=== PATIENT | male | born 1950 | race Caucasian/White ===

== ENCOUNTER → 2017-11-08 17:58 | Outpatient (CLI) | payer BC, MEDICARE, SELFPAY | PROVIDERS: PCP Family Medicine; Visit Provider Surgery | DX: K42.9 Umbilical hernia without obstruction or gangrene (principal); Z01.818 Encounter for other preprocedural examination | CPT/HCPCS: 93005 ==

== ENCOUNTER 2017-11-11 06:01 | Day surgery (SDC) | payer BC, MEDICARE, SELFPAY ==
[2017-11-10 10:25] VITALS: BMI 32.5
[2017-11-11] VITALS (10 sets, daily range): BP systolic 122–142; BP diastolic 65–79; PULSE 70–85; RESP 10–20; TEMP 36.3–43; O2SAT 92–98
--- NOTE | 2017-11-11 07:19 | HMH.ANESCL ---
[facility] Anesthesia Checklist - Patient Identification Patient Identification: Arm Band - Structural Data Admitted From: Home Planned Operative Procedure/s: laparoscopic umbilical hernia repair Consent for Planned Operative Procedure(s) Verified: Yes Verified Documents: Surgical Consent, History and Physical - NPO Status Verified Time NPO: 00:00 - Additional verifications Anesthesia Reactions: No - Airway Assessment C-Spine Mobility Assessed: Yes (mp1) TMJ Mobility Assessed: Yes Dentition: Good Dentition - Neurological Assessment Level of Consciousness: Awake, Alert - Anesthesia Plan Anesthesia Risk discussed: Yes Anesthesia Plan: Verified ASA Class: II Anesthesia Type: General [facility] Anesthesia HX I have reviewed the patient's past medical history: Yes Medical History: Reports:: Cancer, Hypertension Denies:: Internal Pacemaker, Seizures Comment: hx afib- s/p ablation Laterality Cases: Left: Arthroscopy Knee Other Surgeries: Yes: Cancer Surgery, Colonoscopy, EGD, Other (gallbladder). No: Pacemaker *Family Hx:: Heart Attack, Cancer
--- NOTE | 2017-11-11 08:25 | HMH.OPNOTE ---
Date of procedure: 11/11/17 Pre-op Diagnosis:: Umbilical hernia Post-op diagnosis:: other (Incarcerated umbilical hernia) Procedure performed:: Laparoscopic-assisted open repair of incarcerated umbilical hernia (no mesh) Surgeon:: Liban Dominguez MD [employer] Sewer(s):: Keiko Dill PHYSICIAN OFFICE SECRETARY:: Other Anesthesia: GETA Estimated blood loss (mL): 10 Operative findings:: Tiny fingertip defect with large volume of incarcerated preperitoneal fat Operative note:: Informed consent was obtained, the patient was taken to the operating room and placed in the supine position. General anesthesia was induced and his abdomen was prepped and draped in a sterile fashion. After infiltration with local anesthetic a Veress needle was placed in the left upper quadrant. The abdomen was insufflated. A 5 mm optical trocar was placed in the left mid flank. An additional 5 mm trocar was placed at the site of the Veress needle. Evaluation revealed no visible umbilical defect. Palpation did reveal a tiny fingertip defect and a large volume of preperitoneal fat was removed laparoscopically. This was done manually utilizing a [place] grasper. With all of the preperitoneal fat removed incision was made overlying the defect after infiltration with local anesthetic. The patient has a history of severe inflammatory response to Jonnie-Jewell drain status post cholecystectomy and the decision was made to forego mesh placement (particularly given the small size of defect). 0 Ethibond was used to primarily close the defect. The abdomen was once again insufflated and no sign of injury or active bleeding was noted. Both trocars were removed as the pneumoperitoneum was released. All wounds were irrigated and skin was closed with 4-0 Monocryl in a subcuticular fashion. Steri-Strips were applied. The patient's anesthetic agents were reversed and he was extubated prior to transfer to recovery. Pathology: none sent Condition: stable Disposition: PACU Complications:: No immediate
--- NOTE | 2017-11-11 09:10 | P.PN_ITS ---
[facility] Anesthesia Record Part I Intake, IV Amount: 1,200 Estimated blood loss (mL): 10 Urine output (mL): 100 Blood Products used (#): none Blood Pressure: 142/76 SaO2: 92 Pulse Rate: 82 Respiratory Rate: 10 Temperature: 97.3 F Patient is:: Awake, Mask O2, Stable Stable to PACU at:: 08:42
--- NOTE | 2017-11-11 09:10 | HMH.ANESII ---
[facility] Anesthesia Record Part II Discharge Time: 09:12 Destination: Surgical Day Care (OP Surgery) PACU nurse assessment reviewed?: Yes Patient Condition:: Good Anesthesia Complications:: None
[2017-11-11 14:34] LABS: Microscopic,Cath URINE MICROSCOPIC (MICROSCOPIC)
[2017-11-11 15:13] LABS: Appearance,Urine/Cath CLEAR (Clear); Bilirubin,Cath Negative (Negative); Blood, Urine/Cath Negative (Negative); Color,Urine/Cath YELLOW (Yellow); Glucose,Urine/Cath (UA) Negative (Negative); Ketones,Urine/Cath Negative (Negative); Leukocyte Esterase,Cath Negative (Negative); Nitrate,Cath Negative (Negative); PH,Urine/Cath 6.5 (5.0-8.5); Protein,Urine/Cath Negative (Negative); Urobilinogen,Cath 0.2 EU/dl (0.2)
[2017-11-11 16:05] LABS: Bacteria,Urine/Cath TRACE /lpf; RBC,Urine/Cath Occasional # /hpf (0-3)
== END 2017-11-11 09:55 ==
PROVIDERS: Family Provider Family Medicine; PCP Family Medicine; Visit Provider Surgery
PROC: 0WQF4ZZ Repair Abdominal Wall, Percutaneous Endoscopic Approach (ICD-10-PCS; CPT 49587; principal; 2017-11-11 07:30)
DX: K42.0 Umbilical hernia with obstruction, without gangrene (principal)
CPT/HCPCS: 49587; 81001; 96374; J0131; J2405

== ENCOUNTER → 2018-07-24 15:06 | Outpatient (POV) | payer BC, MEDICARE, SELFPAY | PROVIDERS: Family Provider Family Medicine; PCP Family Medicine; Visit Provider Nurse Practitioner Acute Care | DX: Z00.00 Encounter for general adult medical examination without abnormal findings (principal) ==

== ENCOUNTER → 2018-11-14 16:24 | Outpatient (CLI) | payer BC, MEDICARE, SELFPAY ==
[2018-11-14 16:31] LABS: Adenovirus F 40/41, stool Not Detected (NotDetected); Astrovirus Not Detected (NotDetected); Campylobacter Not Detected (NotDetected); Clostridium Difficile A/B, PCR Not Detected (NotDetected); Cryptosporidium Not Detected (NotDetected); Cyclospora Cayetanesis Not Detected (NotDetected); Entamoeba histolytica Not Detected (NotDetected); Enteroaggregative E coli Not Detected (NotDetected); Enteropathogenic E coli Not Detected (NotDetected); Enterotoxigenic E coli Not Detected (NotDetected); Giardia lamblia Not Detected (NotDetected); Norovirus Not Detected (NotDetected); Plesimonas Shigalloides, PCR Not Detected (NotDetected); Rotavirus A Not Detected (NotDetected); Salmonella, PCR Not Detected (NotDetected); Sapovirus Not Detected (NotDetected); Shiga-like toxin E coli Not Detected (NotDetected); Shigella Enterovasive E coli Not Detected (NotDetected); Vibrio Cholerae Not Detected (NotDetected); Vibrio, PCR Not Detected (NotDetected); Yersinia Entercolitica, PCR Not Detected (NotDetected)
== END ==
PROVIDERS: Visit Provider Nurse Practitioner
DX: R19.7 Diarrhea, unspecified (principal)
CPT/HCPCS: 87507

== ENCOUNTER → 2018-11-24 13:33 | Outpatient (CLI) | payer BC, MEDICARE, SELFPAY ==
[2018-11-24 14:04] LABS: Blood Urea Nitrogen 18 mg/dL (7-18); Creatinine,Serum 1.18 mg/dL (0.70-1.30); Estimated Glomerular Filt Rate 61 ml/min (>60); GFR (African American) 74 ML/MIN (>60)
--- NOTE | 2018-11-24 15:53 | CT_ITS ---
CT abdomen pelvis wo/w con CLINICAL INDICATION: Rectal pain and irritation, previous hemorrhoidectomy ITS.REASON: VOMITING,HEMORRHOIDECTOMY ORDERING PHYSICIAN: Michelle Villanueva MD PATIENT AGE: 68 years COMPARISON: 07/12/2017 TECHNIQUE: Axial images obtained with sagittal and coronal reformats. All CT scans at the facility use one or more dose reduction, viz: automated exposure control, ma/kV adjustment per patient size (including targeted exams where dose is matched to indication, i.e. head), or iterative reconstruction technique. PROCEDURE: Oral Contrast: Gastroview IV Contrast: 75 mL's Optiray 350. FINDINGS: Lower thorax: There are coronary artery calcifications and there is a moderate-sized hiatal hernia. The liver, spleen, adrenal glands, pancreas, and kidneys have an unremarkable appearance. No renal or ureteral calculi. There is mild amount of retained colonic feces. There are postcholecystectomy changes. No evidence of appendicitis. There is diverticulosis of the colon. No evidence of diverticulitis. There is a moderate amount of retained colonic feces with rectal fecal impaction . There is a loculated fluid collection in the presacral region slightly extending inferiorly and toward the right posterior to the rectum. This contains fluid and gas as well as a perceptible wall. This measures 7.2 cm cephalad caudad, 5.7 cm transverse, and 3 cm AP and is consistent with a perirectal abscess in the presacral region. There is moderate thickening of the presacral fat as well. There is a small amount of gas in the right perirectal region near the anal verge which appears separate from the main collection. No distant free air is evident. No evidence of diverticulitis. No acute bony anomalies. IMPRESSION: 1. Presacral/perirectal abscess extends inferiorly to the right of midline. A separate collection is noted in the right perirectal region near the anal Burridge. This area measures only approximately 1 x 0.6 cm. This could conceivably communicate with the larger collection well. 2. Rectal fecal impaction. 3. Diverticulosis 4. Moderate-sized hiatal hernia
== END ==
PROVIDERS: Family Medicine; PCP Family Medicine; Visit Provider Family Medicine
DX: Z01.818 Encounter for other preprocedural examination (principal); Z87.19 Personal history of other diseases of the digestive system
CPT/HCPCS: 36415; 74178; 82565; 84520; Q9967

== ENCOUNTER → 2018-12-04 17:13 | Outpatient (CLI) | payer BC, MEDICARE, SELFPAY ==
[2018-12-04 17:26] LABS: Basophils # 0.1 K/mm3 (0-0.2); Basophils % 0.7 % (0.1-2.0); Eosinophils # 0.1 K/mm3 (0.0-0.4); Eosinophils % 1.6 % (0.1-12.0); Hematocrit 38.6 % (42.0-52.0); Hemoglobin 12.7 g/dL (14.1-18.0); Lymphocytes # 2.4 K/mm3 (0.7-4.5); Mean Corpuscular Hemoglobin 28.8 pg (27.0-31.2); Mean Corpuscular Volume 87.2 fl (80-94); Monocytes # 0.6 K/mm3 (0.1-1.0); Neutrophils # 4.6 K/mm3 (1.8-7.8); Neutrophils % 58.7 % (37.0-80.0); Platelet Count 534 K/mm3 (142-424); Red Blood Count 4.43 M/mm3 (4.60-6.20); Red Cell Distribution Width 17.1 % (11.5-17.5); White Blood Count 7.8 K/mm3 (4.8-10.8)
== END ==
PROVIDERS: PCP Family Medicine; Visit Provider Colon & Rectal Surgery
DX: I51.9 Heart disease, unspecified (principal)
CPT/HCPCS: 36415; 85025

== ENCOUNTER → 2019-09-26 12:59 | Outpatient (CLI) | payer MEDICARE, OTHER, SELFPAY ==
--- NOTE | 2019-09-26 13:04 | XR_ITS ---
PROCEDURE: XR CHEST 2V CLINICAL HISTORY: COUGH, CP Cough, chest pain, dizziness COMPARISON: CXR CHEST(2 VIEWS-NOT PORTABLE) from 03/30/2016 CXR CHEST(2 VIEWS-NOT PORTABLE) from 10/04/2016 CXR CHEST(2 VIEWS-NOT PORTABLE) from 01/20/2017 FINDINGS: Normal heart size. Hiatal hernia is present. Lungs are clear. No acute bony abnormalities. IMPRESSION: Hiatal hernia, no change with no acute finding Dictated by: JuanC Patel MD 09/26/2019 16:50 Electronically signed by Juan C Patel MD in [facility] 09/26/2019 16:50
== END ==
PROVIDERS: PCP Family Medicine; Visit Provider Family Medicine
DX: R05 Cough (principal); R07.9 Chest pain, unspecified
CPT/HCPCS: 71046

== ENCOUNTER → 2020-08-07 11:03 | Outpatient (CLI) | payer MEDICARE, OTHER, SELFPAY ==
--- NOTE | 2020-08-07 11:07 | CT_ITS ---
PROCEDURE: CT ABDOMEN PELVIS W CON CLINICAL INDICATION: RT SIDED ABD PAIN, HX OF ABD ABSCESS, right-sided abdominal pain history of abscess COMPARISON: CT ABDPELWW CT abdomen pelvis wo/w con from 11/24/2018 TECHNIQUE: IV Contrast: 75ML OPTIRAY 350 Oral Contrast None Axial images obtained with sagittal and coronal reformats. All CT scans at the facility use one or more dose reduction, viz: automated exposure control, ma/kV adjustment per patient size (including targeted exams where dose is matched to indication, i.e. head), or iterative reconstruction technique. FINDINGS: There is a medium-sized hiatal hernia. Pectus excavatum deformity is noted. Mild fatty liver infiltration. Prior cholecystectomy. The spleen, adrenal glands, and pancreas have an unremarkable appearance. No renal or ureteral calculi. No hydronephrosis. No intestinal obstruction or free air. No evidence of appendicitis. There are diverticula throughout the colon with mild amount of retained colonic feces. There is some redundancy of the sigmoid colon. There is asymmetric soft tissue thickening in the right presacral region 3.5 x 1.8 cm extending inferiorly to the perianal area. Within this area of soft tissue thickening there is an area of decreased attenuation measuring 11 mm. Previously there was a presacral abscess in this area which is much smaller. These residual soft tissue density could be related to some scarring or small residual abscess. No acute bony findings. There are mild osteoarthritic changes of the hips. Subchondral cystic changes present involving the left femoral head measuring approximately 12 mm and has developed in the interval. IMPRESSION: 1. Medium-sized hiatal hernia. 2. Previously noted presacral abscess is much smaller. There remains some residual soft tissue density in the right presacral region measuring approximately 3.5 by 1.8 cm with a small area of decreased attenuation within this area. Residual abscess is a consideration. This extends inferiorly to the anal area on the right. 3. Osteoarthritis of the hips now with a a 12 mm subchondral cyst in the left femoral head Dictated by: Juan C Patel MD 08/08/2020 11:50 Juan C Patel MD in [facility] 08/08/2020 11:50
== END ==
PROVIDERS: PCP Family Medicine; Visit Provider Family Medicine
DX: R10.9 Unspecified abdominal pain (principal); Z87.898 Personal history of other specified conditions
CPT/HCPCS: 74177; Q9967

== ENCOUNTER → 2021-05-08 15:26 | Outpatient (CLI) | payer MEDICARE, OTHER, SELFPAY ==
[2021-05-08 17:33] LABS: Prostate Specific Ag, Diagnost < 0.064 ng/ml (0.0-4.0)
== END ==
PROVIDERS: Visit Provider Urology
DX: C61 Malignant neoplasm of prostate (principal)
CPT/HCPCS: 36415; 84153

== ENCOUNTER → 2021-07-30 18:17 | Outpatient (CLI) | payer BC, MEDICARE, OTHER, SELFPAY ==
--- NOTE | 2021-07-30 18:55 | XR_ITS ---
PROCEDURE INFORMATION: Exam: XR Right Hip Exam date and time: 07/30/2021 6:55 PM Age: 71 years old Clinical indication: Hip pain; Right hip; Additional info: Right hip pain TECHNIQUE: Imaging protocol: XR Right hip. Views: 2 or 3 views hip with pelvis when performed. COMPARISON: CT ABDOMEN PELVIS W CON 08/07/2020 11:46 AM FINDINGS: Bones/joints: Mild degenerative changes involving bilateral hip joints with joint space narrowing and sclerosis. No acute fracture. Soft tissues: Unremarkable. IMPRESSION: No acute findings.
--- NOTE | 2021-07-30 18:55 | XR_ITS ---
PROCEDURE INFORMATION: Exam: XR Left Hip Exam date and time: 07/30/2021 6:55 PM Age: 71 years old Clinical indication: Hip pain; Left hip; Additional info: Left hip pain TECHNIQUE: Imaging protocol: XR Left hip. Views: 2 or 3 views hip with pelvis when performed. COMPARISON: CT ABDOMEN PELVIS W CON 08/07/2020 11:46 AM FINDINGS: Bones/joints: Degenerative changes in the left hip with joint space narrowing and osteophyte formation. Sclerotic changes at the acetabulum. No acute fracture or dislocation. Soft tissues: Unremarkable. IMPRESSION: No acute fracture or dislocation
== END ==
PROVIDERS: PCP Family Medicine; Visit Provider Family Medicine
DX: M25.552 Pain in left hip (principal); M25.551 Pain in right hip
CPT/HCPCS: 73502

== ENCOUNTER → 2021-09-11 09:22 | Outpatient (CLI) | payer BC, MEDICARE, OTHER, SELFPAY | PROVIDERS: PCP Family Medicine; Visit Provider Nurse Practitioner | DX: Z20.822 Contact with and (suspected) exposure to COVID-19 (principal) | CPT/HCPCS: C9803; U0003; U0005 ==

== ENCOUNTER 2021-09-23 07:59 | Emergency (ER) | payer BC, MEDICARE, OTHER, SELFPAY ==
[2021-09-23] VITALS (7 sets, daily range): BP systolic 152–192; BP diastolic 81–100; PULSE 58–67; RESP 16–21; TEMP 36.6; O2SAT 94–96; BMI 31.1
--- NOTE | 2021-09-23 08:07 | ECG_ITS ---
APPROVED REPORT Exam: Resting ECG HR:61 bpm ECG Measurements Heart Rate 61 AXES ID 160 P 53 QRSd 90 QRS 51 QT 414 T 33 QTc 416 Conclusion Normal sinus rhythm Normal ECG Electronically signed by : Mike Major MD 09/23/2021 21:13:00
--- NOTE | 2021-09-23 08:14 | XR_ITS ---
PROCEDURE: XR CHEST 2V CLINICAL HISTORY: chest pressure/soa COMPARISON: CR CXR CHEST(2 VIEWS-NOT PORTABLE) from 10/04/2016 CR CXR CHEST(2 VIEWS-NOT PORTABLE) from 01/20/2017 CR XR CHEST 2V from 09/26/2019 FINDINGS: Normal heart size. Moderate-sized hiatal hernia with adjacent atelectatic changes.. The lungs are clear without infiltrates, suspicious nodules, or pleural effusions. No acute bony abnormalities. IMPRESSION: Hiatal hernia with adjacent atelectatic changes otherwise negative not significantly changed. Dictated by: Juan C Patel MD 09/23/2021 08:44 Juan C Patel MD in [facility] 09/23/2021 08:44
--- NOTE | 2021-09-23 08:17 | HMH.EDGENADL ---
ED Disposition Clinical Impression: Chest pain Disposition: Home, Self-Care Condition on Discharge: Good Instructions: DI for Chest Pain Additional Instructions: Please follow up with your primary care physician in 2-3 days for further management. Please monitor your blood pressure daily and keep a log to show your primary care physician. Please return to the ED if your symptoms reoccur. Referrals: Justice Robles MD [Primary Care Provider] - Forms: Work/School Release Time of Disposition: 10:10 - Critical Care Critical Care Time: No Attestation: On 09/23/21, the high probability of a clinically significant, sudden or life threatening deterioration of the following system(s) required my full and direct attention, intervention and personal management. The time I documented below is in addition to time spent performing reported procedures but includes the following listed in this critical care notation. Medical Decision Making - Medical Records Medical records reviewed: Yes: I reviewed the patient's medical records. - Donte Inquiry Pt receiving controlled substance: No Vital Signs: 09/23/21 08:00 09/23/21 08:31 09/23/21 09:00 Temperature 97.9 F Temperature Source Oral Pulse Rate 60 62 Pulse Rate [Left Radial] 67 Respiratory Rate 19 18 19 Blood Pressure 169/81 H 166/84 H Blood Pressure [Right Arm] 192/100 H Blood Pressure Mean 110 111 Blood Pressure Mean [Right Arm] 130 Blood Pressure Source [Right Arm] Automatic Cuff Blood Pressure Position [Right Arm] Sitting 02 Sat by Pulse Oximetry 95 95 Oxygen Delivery Method Room Air 09/23/21 09:31 09/23/21 09:37 09/23/21 10:01 Temperature Temperature Source Pulse Rate 59 L 58 L 58 L Pulse Rate [Left Radial] Respiratory Rate 16 18 21 Blood Pressure 161/85 H 162/89 H 161/88 H Blood Pressure [Right Arm] Blood Pressure Mean 104 110 110 Blood Pressure Mean [Right Arm] Blood Pressure Source [Right Arm] Blood Pressure Position [Right Arm] 02 Sat by Pulse Oximetry 96 95 94 L Oxygen Delivery Method - Lab Data Lab results reviewed: Yes: I reviewed the patient's lab results. Lab Results 09/23/21 08:25: WBC 5.5, RBC 4.48 L, Hgb 14.2, Hct 41.4 L, MCV 92.5, MCH 31.8 H, MCHC 34.4, RDW 13.6, Plt Count 272, MPV 7.7, Neut % (Auto) 57.0, Lymph % (Auto) 30.6, Barren % (Auto) 8.1, Eos % (Auto) 2.9, Baso % (Auto) 1.4, Neut # (Auto) 3.1, Lymph # (Auto) 1.7, Barren # (Auto) 0.5, Eos # (Auto) 0.2, Baso # (Auto) 0.1 09/23/21 08:25: Sodium 135 L, Potassium 3.7, Chloride 105, Carbon Dioxide 27, Anion Gap 6.7, BUN 15, Creatinine 0.80, Estimated Creat Clear 97, Estimated GFR 95, Est GFR ( Amer) 115, Glucose 116 H, Calcium 9.3, Troponin I < 0.01 09/23/21 08:25: D-Dimer 0.53 H 09/23/21 08:43: SARS-CoV-2 (PCR) Not detected, Influenza A Untype (PCR) Not detected, Influenza Type B (PCR) Not detected Result diagrams: 09/23/21 08:25 09/23/21 08:25 Orders (Tests/Meds): ORDERS Category Date Time Status Troponin I Q3H Lab 09/23/21 11:15 Ordered Troponin I Q3H Lab 09/23/21 14:15 Ordered Medical Decision Narrative: Mr. Simmons is a 71-year-old male with past medical history for A. fib, HLD who presents to the emergency department for chest pain and dyspnea. Patient is afebrile and hemodynamically stable on arrival. Patient is hypertensive 183/99, but reports he typically runs 120s systolic. Physical exam remarkable for equal breath sounds bilaterally no wheezing, rales or rhonchi. No murmurs. Differentials considered not limited to include; AR/CAD, PE however low suspicion given current clinical picture, low suspicion for hypertensive no signs of end organ damage and pressure not emergently elevated, viral mediated illness including COVID 19, pneumonia. Basic labs, trop, dimer, CXR, Bedside ECG are obtained for further evaluation. Bedside ECG shows normal sinus rhythm no acute signs of ischemia, no afib present. Dimer using years criteri
[2021-09-23 08:35] LABS: Basophils # 0.1 K/mm3 (0-0.2); Basophils % 1.4 % (0.1-2.0); Eosinophils # 0.2 K/mm3 (0.0-0.4); Eosinophils % 2.9 % (0.1-12.0); Hematocrit 41.4 % (42.0-52.0); Hemoglobin 14.2 g/dL (14.1-18.0); Lymphocytes # 1.7 K/mm3 (0.7-4.5); Lymphocytes % 30.6 % (10-50); Mean Corpuscular HGB Conc 34.4 g/dL (31.8-35.4); Mean Corpuscular Hemoglobin 31.8 pg (27.0-31.2); Mean Corpuscular Volume 92.5 fl (80-94); Mean Platelet Volume 7.7 fl (7.4-10.4); Monocytes # 0.5 K/mm3 (0.1-1.0); Monocytes % 8.1 % (1.7-9.3); Neutrophils # 3.1 K/mm3 (1.8-7.8); Platelet Count 272 K/mm3 (142-424); Red Blood Count 4.48 M/mm3 (4.60-6.20); Red Cell Distribution Width 13.6 % (11.5-17.5); White Blood Count 5.5 K/mm3 (4.8-10.8)
[2021-09-23 08:45] LABS: Anion Gap 6.7 mEq/L (5-15); Blood Urea Nitrogen 15 mg/dl (9-20); Calcium 9.3 mg/dl (8.4-10.2); Carbon Dioxide 27 mmol/L (22.0-30.0); Chloride 105 mmol/L (98-107); Creatinine Clearance Estimated 97 mL/min (50-200); Estimated Glomerular Filt Rate 95 ml/min (>60); GFR (African American) 115 ML/MIN (>60); Glucose 116 mg/dl (74-100); Potassium 3.7 mmoL/L (3.5-5.1); Sodium 135 mmol/L (136-145)
[2021-09-23 08:50] LABS: Coronavirus 19, PCR Not Detected (NotDetected); Influenza A, PCR Not Detected (NotDetected); Influenza B, PCR Not Detected (NotDetected)
[2021-09-23 08:50] LABS: D-Dimer 0.53 ug/mL (0.0-0.5)
[2021-09-23 09:02] LABS: Troponin I < 0.01 ng/ml (0.00-0.034)
== END 2021-09-23 10:21 | disposition home or self-care (01) ==
PROVIDERS: Emergency Provider Student in an Organized Health Care Education/Training Program; PCP Family Medicine
DX: R07.9 Chest pain, unspecified (principal); I48.0 Paroxysmal atrial fibrillation; E11.9 Type 2 diabetes mellitus without complications; I10 Essential (primary) hypertension; E78.5 Hyperlipidemia, unspecified; Z20.822 Contact with and (suspected) exposure to COVID-19; Z79.899 Other long term (current) drug therapy
CPT/HCPCS: 71046; 80048; 84484; 85025; 85378; 93005; 99283; C9803; U0003; U0005

== ENCOUNTER → 2021-09-24 12:56 | Outpatient (CLI) | payer BC, MEDICARE, OTHER, SELFPAY ==
--- NOTE | 2021-09-24 13:04 | CA_ITS ---
APPROVED REPORT EXAM: Comprehensive 2D, Doppler, and color-flow Echocardiogram Oven Attendant: Bre Colón RVT Ht: 6 ft 0 in Wt: 235lbs BSA: 2.28 BP: 161/88 mmHg Indications: CP,A-FIB,DM,EX SMOKER,SOA,PT HAS PECTUS EXCAVATUM 2D Dimensions LVOT 2.40 cm (M/F) 1.5-2.5 LA Volume 61.70 mL LA Volume Index 27.06 mL/m2 (M/F) 16-34 M-Mode Dimensions RVDd 2.17 cm (0.9-2.6) LA Diam 4.04 cm (1.9-4.0) LVDd 5.47 cm (3.5-5.7) Ao Diam 2.72 cm (2.0-3.7) LVDs 3.78 cm (3.5-5.7) IVSd 0.80 cm (0.6-1.1) PWd 0.72 cm (0.6-1.1) EF (Teich) 58.00% FS 30.90% EDV (Teich) 145.60 mL TAPSE 3.00 (<1.7) ESV (Teich) 61.20 mL LV Diastology E Decel Time 150.00 (160-240 msec) E/A Ratio 1.6 MED E' 7.50 (< 7 cm/sec) E'/MED E' Ratio 12.83 (>14) LAT E' 7.10 (<10 cm/sec) E/LAT E' Ratio 13.55 (>14) Aortic Valve AI PHT 2140.00 ms Mitral Valve MV E Max Errol. 96.00 (40-130 cm/s) MV A Velocity 60.00 (40-130 cm/s) E/A Ratio 1.59 MV Decel. Time 150.00 (160-240 ms) MV PHT 44.00 ms Pulmonary Valve PV Peak Velocity 73.00 (50-150 cm/s) Tricuspid Valve TR P. Velocity 287.00 cm/s RAP Estimate 10.00 mmHg RVSP 43.00 mmHg Left Ventricle Left atrium is mildly enlarged, left ventricle is normal size, there is no concentric left ventricular hypertrophy, visually estimated ejection fraction 55% with no regional wall motion abnormality, diastolic parameters are inconclusive in the study. Right Ventricle Right atrium and right ventricle is normal size and contractility. Aortic Valve Aortic valve is minimally thickened and fibrosed, there is trace aortic insufficiency. Mitral Valve Mitral valve is grossly normal, there is trace mitral regurgitation. Tricuspid Valve Tricuspid valve is grossly normal, there is trace tricuspid regurgitation, tricuspid regurgitation jet velocity is inadequate for calculation of the right ventricular systolic pressure. Pulmonic Valve Pulmonic valve is poorly visualized. Great Vessels Aortic root is normal size. Inferior vena cava is normal size with normal inspiratory collapse. Pericardium No significant pericardial effusion noted. Conclusion 1. Mildly enlarged left atrium, normal left ventricular size, visually estimated ejection fraction 55% with no regional wall motion abnormality, diastolic parameters are inconclusive in the study. 2. Trace aortic, mitral and tricuspid regurgitation. 3. No significant pericardial effusion noted. 4. Inferior vena cava is normal size with normal inspiratory collapse. Electronically signed by : Josue Holguin MD 09/25/2021 10:02:42
== END ==
PROVIDERS: PCP Family Medicine; Visit Provider Family Medicine
DX: R07.9 Chest pain, unspecified (principal); I10 Essential (primary) hypertension
CPT/HCPCS: 93306

== ENCOUNTER → 2021-10-08 07:47 | Outpatient (CLI) | payer BC, MEDICARE, OTHER, SELFPAY ==
--- NOTE | 2021-10-08 07:52 | CA_ITS ---
APPROVED REPORT Candy Separator Enrobing: Bre Colón RVT Study Quality: Good Indications: HTN Risk Factors Hypertension Renal Artery Doppler Origin (R) 132.4/ cm/sec Proximal (R) 120.8/ cm/sec Mid (R) 151.7/ cm/sec Distal (R) 134.4/ cm/sec Renal Aorta Ratio (R) 1.17 Segmental A. (R) 53.9/17.2 cm/sec RI: 0.68 Segmental A. Sup (R) 43.3/12.7 cm/sec Segmental A. Mid (R) 51.7/9.2 cm/sec Segmental A. Inf (R) 53.9/17.2 cm/sec Origin (L) 133.7/ cm/sec Proximal (L) 128.6/ cm/sec Mid (L) 127.2/ cm/sec Distal (L) 110.5/ cm/sec Renal Aorta Ratio (L) 1.03 Segmental A. (L) 78.4/23.1 cm/sec RI: 0.70 Segmental A. Sup (L) 78.4/23.1 cm/sec Segmental A. Mid (L) 61.7/18.0 cm/sec Segmental A. Inf (L) 52.7/16.7 cm/sec Renal Measurements Kidney Size (R) 11.8x7.1 cm Cortical Thickness (R) 1.3 cm Kidney Size (L) 12.4x7.8 cm Cortical Thickness (L) 1.8 cm Findings Study suggests no evidence of stenosis of the bilateral renal arteries. Conclusion Study suggests no evidence of stenosis of the bilateral renal arteries. Electronically signed by : Juan C Patel MD 10/08/2021 14:56:08
== END ==
PROVIDERS: PCP Family Medicine; Visit Provider Family Medicine
DX: I10 Essential (primary) hypertension (principal)
CPT/HCPCS: 93976

== ENCOUNTER → 2022-03-07 13:13 | Outpatient (CLI) | payer BC, MEDICARE, OTHER, SELFPAY ==
--- NOTE | 2022-03-07 14:08 | XR_ITS ---
PROCEDURE INFORMATION: Exam: XR Lumbosacral Spine Exam date and time: 03/07/2022 2:02 PM Age: 71 years old Clinical indication: Pain; Lumbago; Additional info: Right hip pain TECHNIQUE: Imaging protocol: XR of the lumbosacral spine. Views: 2 or 3 views. COMPARISON: CR XR HIP LT 2-3V W/PELVIS 07/30/2021 6:52 PM FINDINGS: Bones/joints: There is a normal count of 5 [id number] lumbar type vertebrae. Mild thoracolumbar levoscoliosis. Mild degenerative spondylosis, greatest in the lower thoracic spine and through the L3-L4 levels, minimal at L4-L5. Mild posterior disc space narrowing throughout. Mild lower lumbar facet arthropathy/hypertrophy. No significant listhesis. No acute fracture. No lytic lesions, as visualized. Sacroiliac joints appear intact. Soft tissues: No acute findings in the paraspinous soft tissues. Intraperitoneal space: Right upper quadrant abdominal surgical clips, correlate for history of cholecystectomy. Vasculature: Multiple atherosclerotic calcified plaques in the abdomen and pelvis. IMPRESSION: 1. No acute fracture or listhesis. 2. Mild thoracolumbar levoscoliosis, mild facet arthropathy. 3. Mild multilevel degenerative disc narrowing with spondylosis, greatest in the lower thoracic and upper lumbar spine. 4. Atherosclerotic disease noted. 5. Additional nonemergency and chronic findings as above.
== END ==
PROVIDERS: PCP Family Medicine; Visit Provider Nurse Practitioner
DX: M25.551 Pain in right hip (principal)
CPT/HCPCS: 72100

== ENCOUNTER → 2022-03-30 17:02 | Outpatient (CLI) | payer BC, MEDICARE, SELFPAY ==
--- NOTE | 2022-03-30 17:05 | MR_ITS ---
PROCEDURE INFORMATION: Exam: MR Lumbar Spine Without Contrast Exam date and time: 03/30/2022 5:11 PM Age: 71 years old Clinical indication: Low back pain; Additional info: Lumbar ddd. Left sided lower back pain. Left hip pain x years. No injury or trauma TECHNIQUE: Imaging protocol: Magnetic resonance imaging of the lumbar spine without contrast. COMPARISON: CR XR LUMBAR SPINE 2-3V 03/07/2022 2:02 PM FINDINGS: alignment is grossly normal. signal intensity within the bone marrow is normal. conus terminates at the mid aspect of L1. Soft tissues are unremarkable. Annular disk bulge and/or protrusions L3-L4 and L4-L5 No marrow edema T12-L1: Central canal and neural foramina are widely patent. L1-L2: Central canal and neural foramina are widely patent. L2-L3: Central canal and neural foramina are widely patent. L3-L4: Central canal and neural foramina are widely patent. L4-L5: Mild broad-based central disc protrusion.Central canal and neural foramina are widely patent. L5-S1: Broad-based annular disc bulge effaces the anterior aspect of the thecal sac mildly so. Central canal is normal. Mild narrowing of the neural foramina. IMPRESSION: Mild degenerative disc disease.
== END ==
PROVIDERS: PCP Family Medicine; Visit Provider Nurse Practitioner
DX: M51.36 Other intervertebral disc degeneration, lumbar region (principal)
CPT/HCPCS: 72148; 76376

== ENCOUNTER 2022-04-02 08:13 | Emergency (ER) | payer BC, MEDICARE, SELFPAY ==
[2022-04-02 08:22] VITALS: BP 189/99; PULSE 64; RESP 18; TEMP 36.4; O2SAT 94; BMI 31.8
--- NOTE | 2022-04-02 08:40 | XR_ITS ---
FINAL REPORT CLINICAL HISTORY: fall COMPARISON: September 23, 2021 FINDINGS: A single portable view of the chest was obtained. The heart size is enlarged. There is pulmonary vascular congestion. There is a moderate hiatal hernia. There is a mild left base opacity, favor atelectasis or pneumonia. The bony thorax is intact. IMPRESSION: Mild left base opacity, favor atelectasis over pneumonia. Reviewed, Interpreted and Dictated by Casper Luis III, MD Transcribed by Shantal Ragland Authenticated and [facility]
--- NOTE | 2022-04-02 08:40 | CT_ITS ---
FINAL REPORT TECHNIQUE: Axial CT images of the face were obtained without contrast. Coronal reformatted images were also obtained. This study was performed with techniques to keep radiation doses as low as reasonably achievable, (ALARA). Individualized dose reduction techniques using automated exposure control or adjustment of mA and/or kV according to the patient''s size were employed. CLINICAL HISTORY: fall FINDINGS: There are comminuted fractures of the bilateral nasal bones which are displaced to the right. There are comminuted fractures of the anterior and mid nasal septum. The orbits are intact.The globes are intact.No sinus fluid levels are identified. There is soft tissue swelling of the nose. IMPRESSION: Comminuted bilateral fractures of the nasal bones which are displaced to the right. Comminuted fractures of the anterior and mid nasal septum. Soft tissue swelling of the nose. Reviewed, Interpreted and Dictated by Casper Luis III, MD Transcribed by Shantal Ragland Authenticated and [facility]
--- NOTE | 2022-04-02 08:40 | CT_ITS ---
FINAL REPORT CLINICAL HISTORY: fall FINDINGS: Axial images of the head were obtained without contrast. Coronal reformatted images were also obtained.This study was performed with techniques to keep radiation doses as low as reasonably achievable (ALARA). Individualized dose reduction techniques using automated exposure control or adjustment of mA and/or kV according to the patient's size were employed. There is no evidence of intracranial hemorrhage or mass. The ventricular size is within normal limits. There is no evidence of shift of the midline structures. No abnormal extra axial fluid collection is identified. No skull abnormality is seen on the bone window images. See CT face report regarding facial fractures. IMPRESSION: No acute intracranial abnormality. Reviewed, Interpreted and Dictated by Casper Luis III, MD Transcribed by Shantal Ragland Authenticated and . [facility]
--- NOTE | 2022-04-02 08:40 | XR_ITS ---
FINAL REPORT CLINICAL HISTORY: fall FINDINGS: SINGLE VIEW PELVIS: A single view of the pelvis was obtained. There is no acute fracture or dislocation. There are moderate right and severe left hip degenerative changes. Soft tissues are unremarkable. IMPRESSION: No acute bony abnormality. Reviewed, Interpreted and Dictated by Casper Luis III, MD Transcribed by Shantal Ragland Authenticated and [facility]
--- NOTE | 2022-04-02 08:40 | CT_ITS ---
FINAL REPORT CLINICAL HISTORY: fall FINDINGS: Axial CT images of the cervical spine were obtained without contrast. Sagittal and coronal reformatted images were also obtained. This study was performed with techniques to keep radiation doses as low as reasonably achievable (ALARA). Individualized dose reduction techniques using automated exposure control or adjustment of mA and/or kV according to the patient's size were employed. There is no evidence of fracture or dislocation. The bony alignment is normal. There are mild and moderate degenerative changes. There are multilevel osteophytes. There are disc osteophyte complexes at C5-C6 and C6-C7. There is mild and moderate neural foraminal narrowing, worse on the right at C5-C6. There is mild central canal stenosis at C5-C6 and C6-C7. No paraspinous soft tissue abnormality is seen. Limited images of the upper thorax are unremarkable. IMPRESSION: No fracture or acute bony abnormality identified. Reviewed, Interpreted and Dictated by Casper Luis III, MD Transcribed by Shantal Ragland Authenticated and [facility]
--- NOTE | 2022-04-02 08:48 | HMH.EDGENADL ---
ED Disposition Clinical Impression: Nasal bone fractures Qualifiers: Encounter type: initial encounter Fracture type: closed Qualified Code(s): S02.2XXA - Fracture of nasal bones, initial encounter for closed fracture Nasal septum fracture Qualifiers: Encounter type: initial encounter Fracture type: closed Qualified Code(s): S02.2XXA - Fracture of nasal bones, initial encounter for closed fracture Disposition: Home, Self-Care Condition on Discharge: Fair Instructions: DI for Nose Fracture, How to Prevent Falls, DI for Closed Head Injury Additional Instructions: Ice to nose 20 minutes 4-5 times a day. Sleep with head elevated on 2-3 pillows for 3 to 4 days. Follow-up with ear nose and throat physician, Dr. Carrizales, 04/05/2022 at 1:20 PM. Jefferson as needed for pain. Additional instructions for CONTROLLED SUBSTANCES: You have been prescribed a medication that is a controlled substance. Controlled substances include pain medications known as opiates and sedative nerve medications known as benzodiazepines. Tramadol, fioricet, and gabapentin are also controlled substances. Some common opiates include: Codeine (such as Tylenol #3) Hydrocodone (Vicodin, Lortab, Lorcet, Jefferson) Oxycodone (Percocet, Percodan, Oxycodone, Oxy IR) Some common benzodiazepines include: Diazepam (Valium) Lorazepam (Ativan) Alprazolam (Xanax) Clonazepam (Klonopin) Oxazepam (Serax) All of these controlled substances are highly addictive and frequently abused. Misuse can and frequently does lead to addiction as well as overdose and . Medication should be stored in a locked cabinet or other secure storage unit. Do not store the medication in a motor vehicle. Short term supplies, 3 days or less, are prescribed because of the highly addictive nature of the medication. Any of the controlled substance medication NOT taken should be disposed of properly and NOT SAVED. The recommended method of disposing of unused medications is: Place the medicines in a sealable plastic bag. If the medicine is a solid, crush it or add water to dissolve it. Add something undesirable (cat litter, coffee grounds, etc.) Dispose of sealed bag in household trash Do not flush or pour unused medicines down a sink or drain. Controlled substances should not be shared, given away or sold. Because of the addictive nature and frequent abuse, these medications are sometimes stolen. These medications should be kept in a safe place where they cannot be stolen. Do not keep them in your car or purse. Lost or stolen prescriptions for controlled substances WILL NOT BE REFILLED in this emergency department, regardless of whether a police report was filed. Prescriptions: Hydrocod/Acet 5/325 mg [Jefferson 5/325mg tablet] 1 tab PO Q6HP PRN #10 tab PRN Reason: Pain Transmission Status: Received by [facility] Referrals: Reynaldo Beck MD [Primary Care Provider] - Tyrel Fortune MD [Physician] - - Critical Care Critical Care Time: No Attestation: On 04/02/22, the high probability of a clinically significant, sudden or life threatening deterioration of the following system(s) required my full and direct attention, intervention and personal management. The time I documented below is in addition to time spent performing reported procedures but includes the following listed in this critical care notation. Medical Decision Making - Donte Inquiry Pt receiving controlled substance: Yes Donte was queried for this patient: Yes Risks and benefits of using a controlled substance: were discussed with pt by me Vital Signs: 04/02/22 08:22 Temperature 97.6 F Temperature Source Oral Pulse Rate [Right Brachial] 64 Respiratory Rate 18 Blood Pressure [Right Arm] 189/99 H Blood Pressure Mean [Right Arm] 129 Blood Pressure Source [Right Arm] Automatic Cuff Blood Pressure Position [Right Arm] Sitting 02 Sat by Pulse Oximetry 94 L Oxyge
[2022-04-02 09:30] VITALS: BP 159/84; PULSE 60; RESP 17; O2SAT 95
[2022-04-02 10:00] VITALS: BP 160/90; PULSE 62; RESP 17; O2SAT 95
[2022-04-02 10:37] LABS: Microscopic, Urine URINE MICROSCOPIC (MICROSCOPIC)
[2022-04-02 10:38] LABS: Appearance,Urine CLEAR (Clear); Bilirubin,Urine Negative (Negative); Blood, Urine Negative (Negative); Color,Urine YELLOW (Yellow); Glucose,Urine (UA) Negative (Negative); Ketones,Urine Negative (Negative); Leukocyte Esterase,Urine Negative (Negative); Nitrate,Urine Negative (Negative); PH,Urine 5.5 (5.0-8.5); Protein,Urine Negative (Negative); Urobilinogen,Urine 0.2 EU/dl (0.2)
[2022-04-02 10:49] LABS: Bacteria,Urine Trace /lpf; Squamous Epithelial Cell,Urine Occasional #/hpf (0-5); WBC,Urine Occasional #/hpf (0-3)
[2022-04-02 11:00] VITALS: BP 166/76; PULSE 61; RESP 16; O2SAT 99
[2022-04-02 11:12] VITALS: BP 166/86; PULSE 60; RESP 17; O2SAT 99
[2022-04-02 11:19] VITALS: BP 166/76; PULSE 56; RESP 20; TEMP 36.4; O2SAT 96
== END 2022-04-02 11:20 | disposition home or self-care (01) ==
PROVIDERS: Emergency Provider Emergency Medicine; PCP Family Medicine
DX: S02.2XXA Fracture of nasal bones, initial encounter for closed fracture (principal); W01.0XXA Fall on same level from slipping, tripping and stumbling without subsequent striking against object, initial encounter; I48.91 Unspecified atrial fibrillation; E10.9 Type 1 diabetes mellitus without complications; E11.9 Type 2 diabetes mellitus without complications; E78.5 Hyperlipidemia, unspecified; I10 Essential (primary) hypertension; Z95.0 Presence of cardiac pacemaker; Z86.14 Personal history of Methicillin resistant Staphylococcus aureus infection; Z85.9 Personal history of malignant neoplasm, unspecified; D64.9 Anemia, unspecified
CPT/HCPCS: 70450; 70486; 71045; 72125; 72170; 81001; 99285

== ENCOUNTER → 2022-06-09 06:45 | Outpatient (CLI) | payer BC, MEDICARE, SELFPAY ==
[2022-06-09 21:47] LABS: Adenovirus,PCR Not Detected (NotDetected); Bordetella Pertussis Not Detected (NotDetected); Chlamydophila Pneumoniae, PCR Not Detected (NotDetected); Coronavirus 229E Not Detected (NotDetected); Coronavirus NL63 Not Detected (NotDetected); Coronavirus OC43 Not Detected (NotDetected); Coronovirus HKU1,PCR Not Detected (NotDetected); Human Metapneumovirus Not Detected (NotDetected); Influenza A, PCR Not Detected (NotDetected); Influenza AH1, 2009 Not Detected (NotDetected); Influenza AH1, PCR Not Detected (NotDetected); Influenza AH3,PCR Not Detected (NotDetected); Influenza B, PCR Not Detected (NotDetected); Mycoplasma Pneumoniae, PCR Not Detected (NotDetected); Parainfluenza 1, PCR Not Detected (NotDetected); Parainfluenza 2, PCR Not Detected (NotDetected); Parainfluenza 3, PCR Not Detected (NotDetected); Parainfluenza 4, PCR Not Detected (NotDetected); Respiratory Syncytial Virus Not Detected (NotDetected); Rhinovirus/Enterovirus Not Detected (NotDetected)
[2022-06-10 23:47] LABS: Coronavirus 19, PCR Detected (NotDetected)
== END ==
PROVIDERS: PCP Nurse Practitioner; Visit Provider Nurse Practitioner
DX: U07.1 COVID-19 (principal); J06.9 Acute upper respiratory infection, unspecified
CPT/HCPCS: 87581; 87632; 87798; C9803; U0003; U0005

== ENCOUNTER → 2022-06-16 12:42 | Outpatient (CLI) | payer BC, MEDICARE, SELFPAY ==
--- NOTE | 2022-06-16 12:50 | XR_ITS ---
FINAL REPORT CLINICAL HISTORY: cough, URI -- covid + COMPARISON: 04/02/2022 FINDINGS: SINGLE-VIEW CHEST There is cardiomegaly. The mediastinum is normal. There are mild bibasilar opacities, may represent atelectasis or pneumonia. There is no pneumothorax. Large hiatal hernia is again identified. IMPRESSION: Bibasilar opacities, may represent atelectasis or pneumonia. Reviewed, Interpreted and Dictated by Casper Luis III, MD Transcribed by Gisel Marte Authenticated and [facility]
[2022-06-16 13:16] LABS: Basophils # 0.1 K/mm3 (0-0.2); Basophils % 1.3 % (0.1-2.0); Eosinophils # 0.2 K/mm3 (0.0-0.4); Eosinophils % 1.5 % (0.1-12.0); Hematocrit 46.4 % (42.0-52.0); Hemoglobin 14.7 g/dL (14.1-18.0); Lymphocytes # 3.6 K/mm3 (0.7-4.5); Lymphocytes % 31.8 % (10-50); Mean Corpuscular HGB Conc 31.7 g/dL (31.8-35.4); Mean Corpuscular Hemoglobin 30.3 pg (27.0-31.2); Mean Corpuscular Volume 95.6 fl (80-94); Mean Platelet Volume 7.7 fl (7.4-10.4); Monocytes # 1.1 K/mm3 (0.1-1.0); Monocytes % 9.5 % (1.7-9.3); Neutrophils # 6.4 K/mm3 (1.8-7.8); Platelet Count 426 K/mm3 (142-424); Red Blood Count 4.85 M/mm3 (4.60-6.20); Red Cell Distribution Width 12.6 % (11.5-17.5); White Blood Count 11.4 K/mm3 (4.8-10.8)
[2022-06-16 14:07] LABS: Prostate Specific Ag, Diagnost < 0.064 ng/ml (0.0-4.0)
== END ==
PROVIDERS: Urology; PCP Family Medicine; Visit Provider Nurse Practitioner
DX: U07.1 COVID-19 (principal); C61 Malignant neoplasm of prostate
CPT/HCPCS: 71045; 84153; 85025

== ENCOUNTER 2022-06-18 11:15 | Emergency (ER) | payer BC, MEDICARE, OTHER, SELFPAY ==
[2022-06-18] VITALS (8 sets, daily range): BP systolic 123–144; BP diastolic 66–86; PULSE 66–74; RESP 16–22; TEMP 36.5; O2SAT 93–98; BMI 30.9
--- NOTE | 2022-06-18 11:31 | XR_ITS ---
FINAL REPORT CLINICAL HISTORY: COVID, pneumonia, SOA COMPARISON: 06/16/2022 FINDINGS: 2 views of the chest were obtained . The heart is normal in size. The mediastinum is within normal limits. There is mild bibasilar atelectasis or pneumonia, unchanged from prior exam. There is a large hiatal hernia. There is no pneumothorax. Osseous structures are unremarkable. IMPRESSION: No acute cardiopulmonary process. Reviewed, Interpreted and Dictated by Casper Luis III, MD Transcribed by Shannan Sanchez Authenticated and [facility]
[2022-06-18 11:38] LABS: Microscopic, Urine URINE MICROSCOPIC (MICROSCOPIC)
[2022-06-18 11:39] LABS: Appearance,Urine CLEAR (Clear); Bilirubin,Urine Negative (Negative); Blood, Urine Negative (Negative); Color,Urine YELLOW (Yellow); Glucose,Urine (UA) Negative (Negative); Ketones,Urine TRACE (Negative); Leukocyte Esterase,Urine Negative (Negative); Nitrate,Urine Negative (Negative); PH,Urine 5.5 (5.0-8.5); Protein,Urine Negative (Negative); Specific Gravity, Urine >= 1.030 (1.005-1.030); Urobilinogen,Urine 0.2 EU/dl (0.2)
--- NOTE | 2022-06-18 11:54 | ECG_ITS ---
APPROVED REPORT Exam: Resting ECG HR:71 bpm ECG Measurements Heart Rate 71 AXES CO 156 P 95 QRSd 96 QRS 65 QT 407 T 55 QTc 430 Conclusion SINUS RHYTHM NONSPECIFIC T-WAVE ABNORMALITY BORDERLINE ECG UNCONFIRMED REPORT Electronically signed by : Mike Major MD 06/20/2022 15:27:27
--- NOTE | 2022-06-18 11:57 | PC.NURSE ---
Gisel Rn @ BS placing IV Access in pt Tech obtained EKG
[2022-06-18 12:16] LABS: Amorphous Sediment,Urine Trace /lpf; Bacteria,Urine Trace /lpf; Squamous Epithelial Cell,Urine Occasional #/hpf (0-5)
[2022-06-18 12:16] LABS: Basophils # 0.1 K/mm3 (0-0.2); Basophils % 0.7 % (0.1-2.0); Eosinophils % 0.2 % (0.1-12.0); Hematocrit 44.3 % (42.0-52.0); Hemoglobin 14.2 g/dL (14.1-18.0); Lymphocytes % 5.2 % (10-50); Mean Corpuscular HGB Conc 32.1 g/dL (31.8-35.4); Mean Corpuscular Hemoglobin 30.2 pg (27.0-31.2); Mean Corpuscular Volume 94.2 fl (80-94); Mean Platelet Volume 7.6 fl (7.4-10.4); Monocytes # 0.4 K/mm3 (0.1-1.0); Neutrophils # 17.9 K/mm3 (1.8-7.8); Neutrophils % 91.9 % (37.0-80.0); Platelet Count 355 K/mm3 (142-424); Red Blood Count 4.71 M/mm3 (4.60-6.20); Red Cell Distribution Width 12.6 % (11.5-17.5); White Blood Count 19.5 K/mm3 (4.8-10.8)
[2022-06-18 12:18] LABS: Chloride 106 mmol/L (98-107); Potassium 4.7 mmoL/L (3.5-5.1); Sodium 138 mmol/L (136-145)
[2022-06-18 12:20] LABS: MANUAL DIFFERENTIAL MANUAL DIFFERENTIAL (MANUAL DIFF)
[2022-06-18 12:21] LABS: Alanine Aminotransferase 32 U/L (12-78); Albumin Level 4.3 g/dl (3.5-5.0); Albumin/Globulin Ratio 1.3 (1.1-1.8); Alkaline Phosphatase 82 U/L (38-126); Anion Gap 14.7 mEq/L (5-15); Aspartate Amino Transferase 39 U/L (17-59); Bilirubin,Total 0.6 mg/dl (0.2-1.3); Blood Urea Nitrogen 23 mg/dl (9-20); Carbon Dioxide 22 mmol/L (22.0-30.0); Creatinine Clearance Estimated 96 mL/min (50-200); Estimated Glomerular Filt Rate 95 ml/min (>60); GFR (African American) 115 ML/MIN (>60); Globulin 3.2 g/dL (1.3-3.2); Total Protein,Serum 7.5 g/dl (6.3-8.2)
[2022-06-18 12:22] LABS: Calcium 8.7 mg/dl (8.4-10.2); Glucose 141 mg/dl (74-100)
[2022-06-18 12:24] LABS: Lactic Acid 3.1 mmol/L (0.7-2.1)
[2022-06-18 12:34] LABS: Troponin I < 0.01 ng/ml (0.00-0.034)
[2022-06-18 13:00] LABS: Lymphocytes % 11 % (10-50); Monocytes % 1 % (2-9); Neutrophils % 88 % (42-76); Platelet Estimate Normal; RBC Morphology Normal; Total Cells Counted 100
--- NOTE | 2022-06-18 13:38 | PC.NURSE ---
pt ambulated to and from the restroom Gisel Almanza getting pt settled back in to room and updating on care
--- NOTE | 2022-06-18 13:57 | HMH.EDGENADL ---
Discharge Plan Disposition Patient Disposition: Home, Self-Care Condition: Good Prescriptions Prescriptions: No Action metoprolol succinate 100 mg tablet extended release 24 hr 100 mg PO DAILY lansoprazole 30 mg capsule,delayed release(DR/EC) 30 mg PO BID hydralazine 50 mg tablet 75 mg PO BID dexamethasone 4 mg tablet 4 mg PO BID Qty: 10 0RF doxycycline hyclate 100 mg tablet 100 mg PO BID Qty: 20 0RF albuterol sulfate 90 mcg/actuation aerosol powdr breath activated 2 inh inhalation QID PRN (Reason: shortness of breath or wheezing) Qty: 1 0RF fluconazole 150 mg tablet 150 mg PO ONCE Qty: 1 0RF zdvzcjfudlcscti-tzgsldbwj-GI [Bromfed DM] 2-30-10 mg/5 mL syrup 5 ml PO Q4-6H PRN (Reason: cold symptoms) Qty: 240 0RF nystatin 100,000 unit/mL suspension 4 ml PO QID 10 Days Qty: 160 0RF Rx Instructions: swish, gargle, and swallow tolterodine 4 mg capsule,extended release 24hr 4 mg PO DAILY Qty: 30 5RF celecoxib 100 mg capsule 100 mg PO DAILY Qty: 60 3RF losartan-hydrochlorothiazide 100-25 mg tablet 1 tab PO QDAY Qty: 30 2RF colesevelam 625 mg tablet 1,875 mg PO BID Referrals Follow up/Referrals: Reynaldo Beck MD [Primary Care Provider] - See instructions Activity Restrictions/Add. Instructions Additional Instructions/Restrictions: Discontinue the dexamethasone (steroids). I would also recommend discontinuing the cough syrup. Continue your antibiotic and thrush treatment. Return with any other symptoms. Clinical Impressions Clinical Impression: Hallucination, drug-induced Discharge ED Provider: Haydee Goddard General Adult HPI General Chief complaint: Weakness Stated complaint: post covid, AMS Time Seen by Provider: 06/18/22 11:28 Mode of Arrival: Ambulatory Source of Information: Patient Limitations: No Limitations Description of Symptoms (Recalled from ER Triage Doc. by RN): to ed per pvt car wth c/o generalized weakness, cough, chest tightness, fatique, decreased po intake. pt states he had covid last week and hasn't had any improvement in symptoms. had an outpt chest xray yesterday that showed pneumonia started antibiotics and sterorids. pt's states he woke up at 5am hallucinating . History of Present Illness HPI narrative: The patient is a 71 year old male who presents with cough, fatigue and concern for hallucination this morning. He states last week he was diagnosed with COVID-19. He recovered from that but developed a worsening cough and then yesterday was diagnosed with pneumonia outpatient. He was started on doxycycline, steroids, cough medication, and was also found to have thrush and was started on fluconazole and nystatin. Related Data Home Medications Medication Instructions Recorded Confirmed lansoprazole 30 mg capsule,delayed 30 mg PO BID stomach 11/01/17 06/17/22 release colesevelam 625 mg tablet 1,875 mg PO BID Cholesterol 06/09/22 06/17/22 hydralazine 50 mg tablet 75 mg PO BID 06/09/22 06/17/22 metoprolol succinate 100 mg 100 mg PO DAILY 06/09/22 06/17/22 tablet,extended release 24 hr Previous Rx's Medication Instructions Recorded tolterodine 4 mg capsule,extended 4 mg PO DAILY #30 caps 11/17/21 release 24 hr celecoxib 100 mg capsule 100 mg PO DAILY #60 caps 05/17/22 losartan 100 1 tab PO QDAY bp #30 tabs 06/11/22 mg-hydrochlorothiazide 25 mg tablet albuterol sulfate 90 mcg/actuation 2 inh inhalation QID PRN shortness 06/17/22 breath activated powder inhaler of breath or wheezing #1 ea vcxsyvnkdlqoaqq-zsuwxvbhekkhfec-EU 5 ml PO Q4-6H PRN cold symptoms 06/17/22 2 mg-30 mg-10 mg/5 mL oral syrup #240 mL (Bromfed DM) dexamethasone 4 mg tablet 4 mg PO BID #10 tabs 06/17/22 doxycycline hyclate 100 mg tablet 100 mg PO BID #20 tabs 06/17/22 fluconazole 150 mg tablet 150 mg PO ONCE #1 tab 06/17/22 nystatin 100,000 unit/mL oral 4 ml PO QID 10 days #160 mL 06/17/22 suspension Allergi
--- NOTE | 2022-06-18 15:08 | PC.NURSE ---
PT IS REQUESTING TO LEAVE
--- NOTE | 2022-06-18 15:09 | PC.NURSE ---
PT REQUESTING TO LEAVE , HE HAS AGREED TO HAVE THE REPEAT LACTIC DRAWN BUT DOES WANT TO STAY FOR THE RESULTS . DR BOWDEN AWARE IS GOING TO D/C PT
[2022-06-18 15:19] LABS: Reflex Lactic Add Lactic Reflex
[2022-06-18 15:36] LABS: Lactic Acid Follow Up (RFLX 1) 2.9 mmol/L (0.7-2.1)
[2022-06-18 17:22] LABS: Reflex Lactic (2 hrs) Add Lactic Reflex
== END 2022-06-18 15:24 | disposition home or self-care (01) ==
PROVIDERS: Emergency Provider Emergency Medicine; PCP Family Medicine
DX: R44.3 Hallucinations, unspecified (principal); J18.9 Pneumonia, unspecified organism; B37.9 Candidiasis, unspecified; R41.82 Altered mental status, unspecified; R53.1 Weakness; Z86.16 Personal history of COVID-19; I10 Essential (primary) hypertension; E78.5 Hyperlipidemia, unspecified; E11.9 Type 2 diabetes mellitus without complications; I25.2 Old myocardial infarction; Z79.51 Long term (current) use of inhaled steroids; Z79.899 Other long term (current) drug therapy; Z85.9 Personal history of malignant neoplasm, unspecified; Z85.46 Personal history of malignant neoplasm of prostate
CPT/HCPCS: 71046; 80053; 81001; 83605; 84484; 85007; 85025; 93005; 96360; 99285

== ENCOUNTER → 2022-06-22 06:30 | Outpatient (CLI) | payer BC, MEDICARE, OTHER, SELFPAY ==
[2022-06-22 18:22] LABS: Alanine Aminotransferase 25 U/L (12-78); Albumin Level 3.7 g/dl (3.5-5.0); Albumin/Globulin Ratio 1.2 (1.1-1.8); Alkaline Phosphatase 77 U/L (38-126); Anion Gap 13.4 mEq/L (5-15); Aspartate Amino Transferase 30 U/L (17-59); Bilirubin,Total 0.6 mg/dl (0.2-1.3); Blood Urea Nitrogen 25 mg/dl (9-20); Calcium 9.1 mg/dl (8.4-10.2); Carbon Dioxide 27 mmol/L (22.0-30.0); Chloride 98 mmol/L (98-107); Estimated Glomerular Filt Rate 73 ml/min (>60); GFR (African American) 89 ML/MIN (>60); Glucose 93 mg/dl (74-100); Potassium 4.4 mmoL/L (3.5-5.1); Sodium 134 mmol/L (136-145); Total Protein,Serum 6.7 g/dl (6.3-8.2)
[2022-06-22 18:47] LABS: Basophils # 0.1 K/mm3 (0-0.2); Basophils % 1.2 % (0.1-2.0); Eosinophils # 0.2 K/mm3 (0.0-0.4); Eosinophils % 1.6 % (0.1-12.0); Hemoglobin 15.1 g/dL (14.1-18.0); Lymphocytes % 28.9 % (10-50); Mean Corpuscular HGB Conc 32.8 g/dL (31.8-35.4); Mean Corpuscular Hemoglobin 30.5 pg (27.0-31.2); Mean Corpuscular Volume 92.8 fl (80-94); Mean Platelet Volume 8.7 fl (7.4-10.4); Monocytes # 0.8 K/mm3 (0.1-1.0); Monocytes % 7.8 % (1.7-9.3); Neutrophils # 6.3 K/mm3 (1.8-7.8); Neutrophils % 60.5 % (37.0-80.0); Platelet Count 397 K/mm3 (142-424); Red Blood Count 4.96 M/mm3 (4.60-6.20); Red Cell Distribution Width 12.7 % (11.5-17.5); White Blood Count 10.5 K/mm3 (4.8-10.8)
[2022-06-22 20:52] LABS: Vitamin B12 862 pg/mL (239-931)
== END ==
PROVIDERS: PCP Family Medicine; Visit Provider Family Medicine
DX: F19.951 Other psychoactive substance use, unspecified with psychoactive substance-induced psychotic disorder with hallucinations (principal)
CPT/HCPCS: 80053; 82607; 84443; 85025

== ENCOUNTER → 2022-06-28 12:36 | Outpatient (CLI) | payer BC, MEDICARE, SELFPAY ==
--- NOTE | 2022-06-28 12:39 | CA_ITS ---
FINAL REPORT TECHNIQUE: Color Doppler, duplex Doppler and faustin scale sonography of the bilateral neck arterial vasculature was performed. Velocities were measured in the carotid arteries. Stenosis evaluation based on the validated velocity criteria. CLINICAL HISTORY: history of hallucinations-drug induced, HTN, HLD, dizziness FINDINGS: The peak systolic velocity of the right common carotid artery is 113 cm/s. The peak systolic velocity of the right internal carotid artery is 83 cm/s and end diastolic velocity 26 cm/s. The ICA/CCA ratio is 1.1. A mild amount of plaque is present. The right external carotid artery is patent. The right vertebral artery is patent with antegrade flow. The peak systolic velocity of the left common carotid artery is 141 cm/s. The peak systolic velocity of the left internal carotid artery is 95 cm/s and end diastolic velocity 26 cm/s. The ICA/CCA ratio is 1.0. A mild amount of plaque is present. The left external carotid artery is patent.The left vertebral artery is patent with antegrade flow. IMPRESSION: Less than 50% bilateral carotid stenosis. Bilateral patent vertebral arteries with antegrade flow. If indicated, CTA or MRA could further evaluate. Reviewed, Interpreted and Dictated by Dayne Westbrook MD Transcribed by Abby Dowling Authenticated and [facility]
== END ==
PROVIDERS: PCP Family Medicine; Visit Provider Family Medicine
DX: R42 Dizziness and giddiness (principal)
CPT/HCPCS: 93880

== ENCOUNTER → 2022-09-22 13:08 | Outpatient (CLI) | payer MEDICARE, OTHER, SELFPAY ==
--- NOTE | 2022-09-22 13:08 | CT_ITS ---
FINAL REPORT TECHNIQUE: Thin section axial CT images of the facial bones and sinuses were obtained without contrast. Coronal reformatted images were also obtained. This study was performed with techniques to keep radiation doses as low as reasonably achievable, (ALARA). Individualized dose reduction techniques using automated exposure control or adjustment of mA and/or kV according to the patient's size were employed. CLINICAL HISTORY: nasal congestion, HX OF NOSE BEING BROKEN IN 3 PLACES AFTER FALLING, PATIENT STATES ISSUES SINCE THEN COMPARISON: April 02, 2022 FINDINGS: CT SINUSES There is moderate mucosal thickening in the left frontal sinus. There is near complete opacification of the left maxillary sinus and multiple left ethmoid air cells. There is obstruction of the left maxillary sinus ostium. There is abnormal soft tissue or fluid in the left infundibulum. The right ostiomeatal unit is unremarkable. There is rightward nasal septal deviation. There are subacute to chronic fractures of the bilateral nasal bones and mid nasal septum with interval healing. IMPRESSION: Moderate mucosal thickening of the left frontal sinus, new. Near complete opacification of the left maxillary sinus and multiple left ethmoid air cells, new. Obstruction of the left maxillary sinus ostium and abnormal soft tissue or fluid in the left infundibulum. Interval healing of nasal bone fractures as above. Reviewed, Interpreted and Dictated by Casper Luis III, MD Transcribed by Abby Dowling Authenticated and [facility]
== END ==
PROVIDERS: PCP Nurse Practitioner; Visit Provider Family Medicine
DX: Z87.81 Personal history of (healed) traumatic fracture (principal)
CPT/HCPCS: 70486

== ENCOUNTER → 2022-10-05 10:30 | Outpatient (CLI) | payer MEDICARE, OTHER, SELFPAY | PROVIDERS: PCP Nurse Practitioner; Visit Provider Nurse Practitioner | DX: L08.9 Local infection of the skin and subcutaneous tissue, unspecified (principal); L72.3 Sebaceous cyst; B96.29 Other Escherichia coli [E. coli] as the cause of diseases classified elsewhere | CPT/HCPCS: 87070; 87077; 87186; 87205 ==

== ENCOUNTER → 2022-10-07 11:36 | Outpatient (CLI) | payer MEDICARE, OTHER, SELFPAY ==
--- NOTE | 2022-10-07 11:56 | XR_ITS ---
FINAL REPORT CLINICAL HISTORY: right hip pain COMPARISON: March 2022 FINDINGS: Right hip with pelvis There is no acute fracture. There is no dislocation. There is moderate to severe degenerative changes of both hips, stable. There is no acute soft tissue abnormality. IMPRESSION: Moderate to severe degenerative changes, stable. Reviewed, Interpreted and Dictated by Casper Luis III, MD Transcribed by Tomás Buchanan Authenticated and [facility]
== END ==
PROVIDERS: PCP Family Medicine; Visit Provider Nurse Practitioner
DX: M25.551 Pain in right hip (principal)
CPT/HCPCS: 73502

== ENCOUNTER → 2022-12-30 08:25 | Outpatient (CLI) | payer MEDICARE, OTHER, SELFPAY ==
--- NOTE | 2022-12-30 08:30 | XR_ITS ---
FINAL REPORT CLINICAL HISTORY: pain COMPARISON: 07/30/2021 FINDINGS: LEFT HIP Two views of the left hip with an AP pelvis demonstrate no acute fracture or dislocation. There is advanced left hip joint space narrowing. There is subchondral sclerosis. There is osteophyte formation at the lateral margin of the left hip joint. The visualized bony structures are well aligned. No soft tissue abnormality is seen. IMPRESSION: Findings have progressed since the prior exam consistent with worsening osteoarthritis. Reviewed, Interpreted and Dictated by Dayne Westbrook MD Transcribed by Abby Dowling Authenticated and [facility]
== END ==
PROVIDERS: PCP Family Medicine; Visit Provider Orthopaedic Surgery
DX: M25.552 Pain in left hip (principal)
CPT/HCPCS: 73502

== ENCOUNTER 2022-12-31 11:52 | Emergency (ER) | payer MEDICARE, OTHER, SELFPAY ==
[2022-12-31] VITALS (9 sets, daily range): BP systolic 100–157; BP diastolic 66–84; PULSE 57–89; RESP 15–24; TEMP 36.6–36.9; O2SAT 95–97; BMI 31.1
--- NOTE | 2022-12-31 11:52 | ECG_ITS ---
APPROVED REPORT Exam: Resting ECG HR:63 bpm ECG Measurements Heart Rate 63 AXES FL 167 P 83 QRSd 102 QRS 67 QT 412 T 52 QTc 419 Conclusion SINUS RHYTHM NORMAL ECG UNCONFIRMED REPORT Electronically signed by : Mike Major MD 01/01/2023 20:29:50
--- NOTE | 2022-12-31 11:59 | HMH.EDGENADL ---
Discharge Plan Disposition Patient Disposition: Home, Self-Care Prescriptions Prescriptions: No Action fluticasone propionate 50 mcg/actuation spray,suspension 2 spray intranasal DAILY Qty: 16 2RF Rx Instructions: administer into each nostril Trulance 3 mg tablet 3 mg PO DAILY Qty: 30 2RF tolterodine 4 mg capsule,extended release 24hr 4 mg PO DAILY Qty: 30 5RF celecoxib 100 mg capsule 100 mg PO BID Qty: 60 3RF losartan-hydrochlorothiazide 100-25 mg tablet See Rx Instructions .ROUTE .COMPLEX Qty: 30 2RF Dose Instruction: TAKE 1 TABLET BY MOUTH EVERY DAY FOR BP Rx Instructions: TAKE 1 TABLET BY MOUTH EVERY DAY FOR BP hydralazine 50 mg tablet See Rx Instructions .ROUTE .COMPLEX Qty: 90 2RF Dose Instruction: TAKE 1 AND 1/2 TABLETS ORALLY TWICE DAILY Rx Instructions: TAKE 1 AND 1/2 TABLETS ORALLY TWICE DAILY colestipol 1 gram tablet See Rx Instructions .ROUTE .COMPLEX Qty: 60 2RF Dose Instruction: TAKE 1 TABLET ORALLY TWICE A DAY Rx Instructions: TAKE 1 TABLET ORALLY TWICE A DAY hydroxyzine HCl 25 mg tablet See Rx Instructions .ROUTE .COMPLEX Qty: 60 0RF Dose Instruction: TAKE 1 TO 2 TABLETS BY MOUTH AT BEDTIME NEEDED FOR ANXIETY OR SLEEP Rx Instructions: TAKE 1 TO 2 TABLETS BY MOUTH AT BEDTIME NEEDED FOR ANXIETY OR SLEEP metoprolol succinate 100 mg tablet extended release 24 hr 100 mg PO DAILY Qty: 30 3RF lansoprazole 30 mg capsule,delayed release(DR/EC) 30 mg PO BID Qty: 60 4RF Clinical Impressions Clinical Impression: Chest pain, Hernia, hiatal Discharge ED Provider: Mary North General Adult HPI General Chief complaint: Chest Pain Stated complaint: chest pain Time Seen by Provider: 12/31/22 11:59 Mode of Arrival: Ambulatory Source of Information: Patient Limitations: No Limitations Description of Symptoms (Recalled from ER Triage Doc. by RN): Presents via POV d/t 03/19 midsternum/left chest pain that started suddenly while watching TV. Associated tightness and difficulty breathing. Hx of HTN. Asa 81mg daily. Increased stress and poor sleep in the last few days. History of Present Illness HPI narrative: Patient is a 72-year-old male presenting with chest pressure intermittently over the last several days. He states that he believes that this is anxiety because he has been having a difficult time sleeping over the last few weeks. He states that his chest discomfort is not associate with any exertion and is random and intermittent at times. He cannot put his finger on what makes it better or worse. He does have some associated dyspnea but no nausea and no radiation associated with this. He has no known history of coronary artery disease has never had a heart cath but did have a stress test more than 3 years ago at [facility]. Denies any fevers chills cough or any other respiratory symptoms. Currently has some chest pressure which is mild. Related Data Previous Rx's Medication Instructions Recorded tolterodine 4 mg capsule,extended 4 mg PO DAILY #30 caps 09/08/22 release 24 hr fluticasone propionate 50 2 spray intranasal DAILY nasal 09/10/22 mcg/actuation nasal congestion #16 grams spray,suspension celecoxib 100 mg capsule 100 mg PO BID #60 caps 09/20/22 losartan 100 See Rx Instructions .Route 11/25/22 mg-hydrochlorothiazide 25 mg tablet .COMPLEX #30 tabs hydralazine 50 mg tablet See Rx Instructions .Route 11/26/22 .COMPLEX #90 tabs colestipol 1 gram tablet See Rx Instructions .Route 11/29/22 .COMPLEX #60 tabs hydroxyzine HCl 25 mg tablet See Rx Instructions .Route 11/30/22 .COMPLEX #60 tabs metoprolol succinate 100 mg 100 mg PO DAILY #30 tabs 12/01/22 tablet,extended release 24 hr lansoprazole 30 mg capsule,delayed 30 mg PO BID stomach #60 caps 12/08/22 release plecanatide 3 mg tablet (Trulance) 3 mg PO DAILY constipation #30 tabs 12/14/22 Allergies Allergy/AdvR
--- NOTE | 2022-12-31 12:01 | XR_ITS ---
FINAL REPORT CLINICAL HISTORY: Generalized chest pain COMPARISON: 06/18/2022 FINDINGS: TWO-VIEW CHEST The heart size is normal. The mediastinum is normal. There are mild chronic changes in both lungs. An intrathoracic stomach is seen posteriorly at the left base. Finding is stable since previous. There is no pneumothorax. IMPRESSION: Intrathoracic stomach. Reviewed, Interpreted and Dictated by Dayne Westbrook MD Transcribed by Gisel Marte Authenticated and [facility]
--- NOTE | 2022-12-31 12:03 | PC.NURSE ---
Dr. North at BS for pt eval
[2022-12-31 12:21] LABS: Basophils # 0.1 K/mm3 (0-0.2); Basophils % 0.9 % (0.1-2.0); Eosinophils # 0.1 K/mm3 (0.0-0.4); Eosinophils % 1.6 % (0.1-12.0); Hematocrit 43.4 % (42.0-52.0); Hemoglobin 14.5 g/dL (14.1-18.0); Lymphocytes # 1.9 K/mm3 (0.7-4.5); Lymphocytes % 27.8 % (10-50); Mean Corpuscular HGB Conc 33.5 g/dL (31.8-35.4); Mean Corpuscular Volume 95.6 fl (80-94); Mean Platelet Volume 7.6 fl (7.4-10.4); Monocytes # 0.6 K/mm3 (0.1-1.0); Monocytes % 8.8 % (1.7-9.3); Neutrophils # 4.2 K/mm3 (1.8-7.8); Platelet Count 327 K/mm3 (142-424); Red Blood Count 4.54 M/mm3 (4.60-6.20); Red Cell Distribution Width 13.2 % (11.5-17.5); White Blood Count 6.9 K/mm3 (4.8-10.8)
[2022-12-31 12:31] LABS: Alanine Aminotransferase 17 U/L (12-78); Albumin Level 4.4 g/dl (3.5-5.0); Albumin/Globulin Ratio 1.5 (1.1-1.8); Alkaline Phosphatase 63 U/L (38-126); Anion Gap 11.3 mEq/L (5-15); Aspartate Amino Transferase 24 U/L (17-59); Bilirubin,Total 0.6 mg/dl (0.2-1.3); Blood Urea Nitrogen 18 mg/dl (9-20); Calcium 8.8 mg/dl (8.4-10.2); Carbon Dioxide 30 mmol/L (22.0-30.0); Chloride 96 mmol/L (98-107); Creatinine Clearance Estimated 96 mL/min (50-200); Estimated Glomerular Filt Rate 94 ml/min (>60); GFR (African American) 114 ML/MIN (>60); Glucose 106 mg/dl (74-100); Potassium 4.3 mmoL/L (3.5-5.1); Sodium 133 mmol/L (136-145); Total Protein,Serum 7.4 g/dl (6.3-8.2)
[2022-12-31 12:45] LABS: Troponin I < 0.01 ng/ml (0.00-0.034)
[2022-12-31 13:07] LABS: D-Dimer 0.68 ug/mL (0.0-0.5)
--- NOTE | 2022-12-31 13:26 | PC.NURSE ---
asked to speak to er md, notified md once he came out of another pt room.. gave him remote to watch tv during his wait and adjusted his bed,vishal @ bs
--- NOTE | 2022-12-31 13:50 | PC.NURSE ---
DWAYNE OSORIO at for update on POC
--- NOTE | 2022-12-31 14:26 | PC.NURSE ---
pt up to bathroom, given a warm blanket
--- NOTE | 2022-12-31 14:32 | PC.NURSE ---
Updated patient on plan of care. Awaiting Troponin #2 to be resulted.
[2022-12-31 14:58] LABS: Troponin I < 0.01 ng/ml (0.00-0.034)
== END 2022-12-31 15:56 | disposition home or self-care (01) ==
PROVIDERS: Emergency Provider Student in an Organized Health Care Education/Training Program; PCP Family Medicine
DX: R07.9 Chest pain, unspecified (principal); K44.9 Diaphragmatic hernia without obstruction or gangrene
CPT/HCPCS: 71046; 80053; 84484; 85025; 85378; 93005; 99284; 99285

== ENCOUNTER 2023-01-19 09:42 | Day surgery (SDC) | payer MEDICARE, OTHER, SELFPAY ==
[2023-01-17 11:28] VITALS: BMI 31.1
--- NOTE | 2023-01-19 | XR_ITS ---
FINAL REPORT CLINICAL HISTORY: RT HIP INJ IN ORTHO FINDINGS: FLUOROSCOPY LESS THAN 1 HOUR HISTORY: Fluoroscopy guided injection. FINDINGS: Fluoroscopic guidance was provided for right hip injection. A single spot film was obtained. 0.0 minutes of fluoroscopy time were used. IMPRESSION: As above. Reviewed, Interpreted and Dictated by Casper Luis III, MD Transcribed by Naomi Guevara Authenticated and [facility]
[2023-01-19 10:16] VITALS: BP 133/60; PULSE 60; RESP 18; TEMP 36.1; O2SAT 94
--- NOTE | 2023-01-19 10:54 | P.PN_ITS ---
[facility] Disclaimer: The information contained in this section may have been updated after the patient was seen, as this information can be updated by other users. Medical History Anxiety Bronchitis Closed displaced fracture of nasal bone COVID-19 Degenerative joint disease of both hips Deviated septum Episodes of formed visual hallucinations History of COVID-19 History of pneumonia History of prostate cancer History of sinusitis Hx of fracture of nose Hyperlipidemia Hypertension Infected sebaceous cyst Insomnia Prostate cancer Snoring Surgical History History of cholecystectomy History of hemorrhoidectomy History of prostatectomy History of prostatectomy Family History Other Cancer Diabetes Heart attack Hyperlipidemia Hypertension Social History Smoking Status: Never smoker alcohol intake: current counseling provided: provider counseling substance use type: denies use current occupational status: retired Travel in the last 8 weeks: None household members: spouse housing: house current occupation: [employer] current occupational exposures/hazards: No caffeine: Yes [facility] Anesthesia Checklist Patient Identification Patient Identification: Arm Band and Verbal (Name & ) Structural Data Admitted From: Home Planned Operative Procedure/s: Hip injection Consent for Planned Operative Procedure(s) Verified: Yes NPO Status Verified Time NPO: 00:00 Additional verifications Anesthesia Reactions: No Hx Blood Transfusions: No Blood Transfusion Reaction: No Airway Assessment C-Spine Mobility Assessed: Yes TMJ Mobility Assessed: Yes Dentition: Good Dentition Neurological Assessment Level of Consciousness: Awake Hx Seizures: No Numbness or tingling in extremities: No Anesthesia Plan Anesthesia Risk discussed: Yes Anesthesia Plan: Verified ASA Class: II Anesthesia Type: MAC
--- NOTE | 2023-01-19 11:10 | EXP.OP.NOTE ---
Date of procedure: 01/19/23 Pre-op Diagnosis:: Right hip osteoarthritis Post-op Diagnosis:: Same Procedure performed:: Right hip injection with arthrogram x-ray guidance for needle placement Surgeon:: Jose Alejandro Sadler DO [employer] ANALYST:: Nhan Lopez Anesthesia: MAC Estimated blood loss (mL): 0 Operative findings:: See dictation Operative note:: Patient is identified preoperatively. Right hip marked with yes my initials. Taken the operative suite placed upon on the radiolucent bed. Given sedation. Right hip was then prepped and draped normal sterile fashion. Once prepped and draped final operative timeout performed to identify proper patient procedure and extremity. Everyone involved in the case agreed. No contraindications to beginning. X-ray was brought into identify the right hip joint. Using x-ray guidance proper trajectory of 18-gauge spinal needle was used to enter the hip capsule. Arthrogram was performed with Isovue confirming needle placement within the intra-articular aspect of the hip. Once confirmed injection 80 mg Kenalog 3 cc 1% lidocaine injected to the hip. Needle removed Band-Aid placed patient waken sedation taken recovery stable condition Condition: stable Disposition: PACU Complications:: None apparent
[2023-01-19 11:16] VITALS: BP 87/51; PULSE 58; RESP 14; TEMP 36.6; O2SAT 97
[2023-01-19 11:26] VITALS: BP 90/55; PULSE 58; RESP 17; O2SAT 97
[2023-01-19 11:36] VITALS: BP 108/52; PULSE 52; RESP 16; O2SAT 97
[2023-01-19 11:46] VITALS: BP 101/69; PULSE 55; RESP 17; TEMP 36.6; O2SAT 96
[2023-01-19 14:38] VITALS: TEMP 43
== END 2023-01-19 11:46 | disposition home or self-care (01) ==
PROVIDERS: PCP Family Medicine; Visit Provider Orthopaedic Surgery
DX: M16.11 Unilateral primary osteoarthritis, right hip (principal); Z79.899 Other long term (current) drug therapy; I10 Essential (primary) hypertension; M25.551 Pain in right hip
CPT/HCPCS: 20610; 73502; 76000; 96374; Q9966

== ENCOUNTER 2023-01-23 08:40 | Emergency (ER) | payer MEDICARE, OTHER, SELFPAY ==
[2023-01-23 08:41] VITALS: BP 107/65; PULSE 65; RESP 18; TEMP 36.4; O2SAT 96; BMI 31.1
[2023-01-23 09:00] VITALS: BP 136/75; PULSE 69; RESP 18; O2SAT 97
--- NOTE | 2023-01-23 09:10 | CT_ITS ---
PROCEDURE INFORMATION: Exam: CT Abdomen And Pelvis With Contrast Exam date and time: 01/23/2023 10:01 AM Age: 72 years old Clinical indication: Pain; Other: Rectum area; Prior surgery; Surgery date: 6+ months; Surgery type: Had previous cancer prostrate and had it removed 10-15 years ago--; Additional info: Concern for perirectal abscess TECHNIQUE: Imaging protocol: Computed tomography of the abdomen and pelvis with contrast. Radiation optimization: All CT scans at this facility use at least one of these dose optimization techniques: automated exposure control; mA and/or kV adjustment per patient size (includes targeted exams where dose is matched to clinical indication); or iterative reconstruction. Contrast material: ISOVUE; Contrast volume: 75 ml; Contrast route: IV; REPORTING DATA: Count of CT and Cardiac NM exams in prior 12 months: This patient has received 4 known CTs and 0 known cardiac nuclear medicine studies in the 12 months prior to the current study. COMPARISON: CT ABDOMEN PELVIS W CON 08/07/2020 11:46 AM FINDINGS: Diaphragm: Stable hiatal hernia. Liver: Normal. No mass. Gallbladder and bile ducts: Previous cholecystectomy. Pancreas: Normal. No ductal dilation. Spleen: Normal. No splenomegaly. Adrenal glands: Normal. No mass. Kidneys and ureters: Normal. No hydronephrosis. Stomach and bowel: Unremarkable. No obstruction. No mucosal thickening. Appendix: No evidence of appendicitis. Intraperitoneal space: Unremarkable. No free air. No significant fluid collection. Vasculature: Unremarkable. No abdominal aortic aneurysm. Lymph nodes: Unremarkable. No enlarged lymph nodes. Urinary bladder: Unremarkable as visualized. Reproductive: Unremarkable as visualized. Bones/joints: Severe osteoarthritic changes both hips. Soft tissues: Continued presacral soft tissue density to the right of midline measuring 1.9 x 2.2 cm. This appears slightly smaller in size than previous examination. No evidence of perirectal or perianal abscess. IMPRESSION: Continued presacral soft tissue density to the right of midline measuring 1.9 x 2.2 cm. This appears slightly smaller in size than previous examination. No evidence of perirectal or perianal abscess.
[2023-01-23 09:13] LABS: Microscopic, Urine URINE MICROSCOPIC (MICROSCOPIC)
--- NOTE | 2023-01-23 09:15 | PC.NURSE ---
Quirino rounded on patient and family member
[2023-01-23 09:22] LABS: Appearance,Urine CLEAR (Clear); Bilirubin,Urine Negative (Negative); Blood, Urine Negative (Negative); Color,Urine YELLOW (Yellow); Glucose,Urine (UA) Negative (Negative); Ketones,Urine Negative (Negative); Leukocyte Esterase,Urine Negative (Negative); Nitrate,Urine Negative (Negative); Protein,Urine Negative (Negative); Urobilinogen,Urine 0.2 EU/dl (0.2)
[2023-01-23 09:34] LABS: Squamous Epithelial Cell,Urine Occasional #/hpf (0-5)
[2023-01-23 09:47] LABS: Basophils % 0.1 % (0.1-2.0); Eosinophils # 0.1 K/mm3 (0.0-0.4); Eosinophils % 0.5 % (0.1-12.0); Hematocrit 45.8 % (42.0-52.0); Lymphocytes # 1.4 K/mm3 (0.7-4.5); Lymphocytes % 11.2 % (10-50); Mean Corpuscular HGB Conc 32.7 g/dL (31.8-35.4); Mean Corpuscular Hemoglobin 31.6 pg (27.0-31.2); Mean Corpuscular Volume 96.9 fl (80-94); Mean Platelet Volume 7.7 fl (7.4-10.4); Monocytes # 1.1 K/mm3 (0.1-1.0); Monocytes % 8.5 % (1.7-9.3); Neutrophils # 10.2 K/mm3 (1.8-7.8); Neutrophils % 79.7 % (37.0-80.0); Platelet Count 361 K/mm3 (142-424); Red Blood Count 4.73 M/mm3 (4.60-6.20); White Blood Count 12.7 K/mm3 (4.8-10.8)
[2023-01-23 09:48] LABS: Chloride 97 mmol/L (98-107); Sodium 132 mmol/L (136-145)
[2023-01-23 09:50] LABS: Alanine Aminotransferase 21 U/L (12-78); Alkaline Phosphatase 61 U/L (38-126); Aspartate Amino Transferase 27 U/L (17-59); Bilirubin,Total 0.9 mg/dl (0.2-1.3); Blood Urea Nitrogen 20 mg/dl (9-20); Creatinine Clearance Estimated 96 mL/min (50-200); Estimated Glomerular Filt Rate 94 ml/min (>60); GFR (African American) 114 ML/MIN (>60)
[2023-01-23 09:51] LABS: Albumin Level 4.4 g/dl (3.5-5.0); Albumin/Globulin Ratio 1.4 (1.1-1.8); Carbon Dioxide 22 mmol/L (22.0-30.0); Globulin 3.2 g/dL (1.3-3.2); Glucose 122 mg/dl (74-100); Total Protein,Serum 7.6 g/dl (6.3-8.2)
[2023-01-23 09:57] LABS: C-Reactive Protein 0.4 mg/L (0-4)
--- NOTE | 2023-01-23 10:24 | PC.NURSE ---
jos rounding on pt
--- NOTE | 2023-01-23 11:01 | HMH.EDGENADL ---
Discharge Plan Disposition Patient Disposition: Home, Self-Care Condition: Fair Prescriptions Prescriptions: No Action trazodone 50 mg tablet 50 - 100 mg PO HS PRN (Reason: sleep) Qty: 60 0RF lansoprazole 30 mg capsule,delayed release(DR/EC) 30 mg PO BID Qty: 60 4RF metoprolol succinate 100 mg tablet extended release 24 hr 100 mg PO DAILY losartan-hydrochlorothiazide 100-25 mg tablet See Rx Instructions .ROUTE .COMPLEX Rx Instructions: TAKE 1 TABLET BY MOUTH EVERY DAY FOR BP hydralazine 50 mg tablet See Rx Instructions .ROUTE .COMPLEX Rx Instructions: TAKE 1 AND 1/2 TABLETS ORALLY TWICE DAILY celecoxib 100 mg capsule 100 mg PO BID colestipol 1 gram tablet See Rx Instructions .ROUTE .COMPLEX Rx Instructions: TAKE 1 TABLET ORALLY TWICE A DAY aspirin 81 mg Tablet,Delayed Release (Dr/Ec) 81 mg PO DAILY Gemtesa 75 mg Tablet 25 mg PO DAILY Referrals Follow up/Referrals: Michelle Villanueva MD [Primary Care Provider] - See instructions Activity Restrictions/Add. Instructions Additional Instructions/Restrictions: Recommend talking with urologist about to the soft tissue density noted on your CT scan to see if there is any further interventions that need to be performed. Clinical Impressions Clinical Impression: Chronic rectal pain Discharge ED Provider: Rodney Burks General Adult HPI General Chief complaint: PAIN Stated complaint: Groin burning sensation, cough Time Seen by Provider: 01/23/23 08:45 Mode of Arrival: Ambulatory Source of Information: Patient Limitations: No Limitations Description of Symptoms (Recalled from ER Triage Doc. by RN): c/o groin burning around his prostate area since yesterday, states the burning has improved since yesterday but not much, denies any burning,blood or pain with urination. Pt is concerned due to his 10-15 year old hx of prostate ca. States they removed his prostate at that time. History of Present Illness HPI narrative: Patient is a 72-year-old male with past medical history of prostate cancer status post prostatectomy who presents with rectal/prostate region pain since yesterday. He reports that he has had this intermittently over the last couple of years and that seems to resolve. He says that he is always concerned because he has a history of prostate cancer and is concerned that it may return. He says that he does have some intermittent burning in the rectal area but denies any burning or hematuria with urination. Denies any chest pain or abdominal pain. Denies any fever or chills. Related Data Home Medications Medication Instructions Recorded Confirmed aspirin 81 mg tablet,delayed 81 mg PO DAILY Blood thinner 01/17/23 01/19/23 release celecoxib 100 mg capsule 100 mg PO BID bones 01/17/23 01/19/23 colestipol 1 gram tablet See Rx Instructions .Route 01/17/23 01/19/23 .COMPLEX /* hydralazine 50 mg tablet See Rx Instructions .Route 01/17/23 01/19/23 .COMPLEX Anxiety losartan 100 See Rx Instructions .Route 01/17/23 01/19/23 mg-hydrochlorothiazide 25 mg tablet .COMPLEX bp metoprolol succinate 100 mg 100 mg PO DAILY bp 01/17/23 01/19/23 tablet,extended release 24 hr vibegron 75 mg tablet (Gemtesa) 25 mg PO DAILY * 01/17/23 01/19/23 Previous Rx's Medication Instructions Recorded lansoprazole 30 mg capsule,delayed 30 mg PO BID stomach #60 caps 12/08/22 release trazodone 50 mg tablet 50 - 100 mg PO HS PRN sleep #60 01/03/23 tabs Allergies Allergy/AdvReac Type Severity Reaction Status Date / Time No Known Allergies Allergy Verified 01/17/23 11:31 [facility] Disclaimer: The information contained in this section may have been updated after the patient was seen, as this information can be updated by other users. Medical History Anxiety Bronchitis Closed displaced fracture of nasal bone COVID-19 Dem[facility]
[2023-01-23 11:07] VITALS: BP 133/69; PULSE 64; RESP 20; TEMP 36.6; O2SAT 96
== END 2023-01-23 11:09 | disposition home or self-care (01) ==
PROVIDERS: Emergency Provider Student in an Organized Health Care Education/Training Program; PCP Family Medicine
DX: K62.89 Other specified diseases of anus and rectum (principal); Z85.46 Personal history of malignant neoplasm of prostate; Z87.891 Personal history of nicotine dependence
CPT/HCPCS: 74177; 80053; 81001; 85025; 86140; 87086; 99284; 99285; Q9967

== ENCOUNTER → 2023-03-15 23:05 | Outpatient (CLI) | payer MEDICARE, OTHER, SELFPAY ==
[2023-03-15 19:52] LABS: Anion Gap 17.1 mEq/L (5-15); Blood Urea Nitrogen 10 mg/dl (9-20); Calcium 9.2 mg/dl (8.4-10.2); Carbon Dioxide 26 mmol/L (22.0-30.0); Chloride 94 mmol/L (98-107); Estimated Glomerular Filt Rate 94 ml/min (>60); GFR (African American) 114 ML/MIN (>60); Glucose 130 mg/dl (74-100); Potassium 4.1 mmoL/L (3.5-5.1); Sodium 133 mmol/L (136-145)
== END ==
PROVIDERS: PCP Family Medicine; Visit Provider Family Medicine
DX: I10 Essential (primary) hypertension (principal); R73.9 Hyperglycemia, unspecified; Z90.79 Acquired absence of other genital organ(s)
CPT/HCPCS: 80048

== ENCOUNTER → 2023-08-16 19:16 | Outpatient (CLI) | payer MEDICARE, OTHER, SELFPAY | PROVIDERS: PCP Family Medicine; Visit Provider Family Medicine | DX: S21.209A Unspecified open wound of unspecified back wall of thorax without penetration into thoracic cavity, initial encounter (principal); B96.29 Other Escherichia coli [E. coli] as the cause of diseases classified elsewhere | CPT/HCPCS: 87070; 87205 ==

== ENCOUNTER → 2023-08-17 23:12 | Outpatient (CLI) | payer MEDICARE, OTHER, SELFPAY | PROVIDERS: PCP Family Medicine; Visit Provider Family Medicine | DX: E11.9 Type 2 diabetes mellitus without complications (principal) ==

== ENCOUNTER 2023-11-29 15:31 | Outpatient (CLI) | payer MEDICARE, OTHER, SELFPAY | END 2023-11-29 23:59 | LOC: RT 15:33 | PROVIDERS: PCP Family Medicine; Visit Provider Family Medicine | DX: R00.1 Bradycardia, unspecified (principal) | CPT/HCPCS: 93225 ==

== ENCOUNTER 2023-12-08 12:57 | Emergency (ER) | payer MEDICARE, OTHER, SELFPAY ==
--- NOTE | 2023-12-08 13:48 | ED_ITS ---
Discharge Plan Disposition Patient Disposition: Home, Self-Care Condition: Good Prescriptions Prescriptions: New sulfamethoxazole-trimethoprim [Bactrim DS] 800-160 mg Tablet 1 tab PO BID Qty: 20 0RF cephalexin 500 mg capsule 500 mg PO QID Qty: 40 0RF mupirocin 2 % ointment 1 applic topical TID 7 Days Qty: 15 0RF No Action bisacodyl [Dulcolax (bisacodyl)] 10 mg suppository 10 mg [place] DAILY PRN (Reason: constipation) Qty: 12 0RF Myrbetriq 25 mg tablet extended release 24 hr 25 mg PO DAILY Qty: 30 3RF polyethylene glycol 3350 [Miralax] 17 gram/dose powder 17 g PO DAILY Qty: 510 0RF Align 4 mg capsule 4 mg PO DAILY Qty: 30 0RF trazodone 50 mg tablet See Rx Instructions .ROUTE .COMPLEX Qty: 60 2RF Dose Instruction: TAKE 1-2 TABLETS ORALLY AT BEDTIME NIGHTLY NEEDED FOR SLEEP Rx Instructions: TAKE 1-2 TABLETS ORALLY AT BEDTIME NIGHTLY NEEDED FOR SLEEP metformin 500 mg tablet See Rx Instructions .ROUTE .COMPLEX Qty: 30 1RF Dose Instruction: TAKE ONE TABLET BY MOUTH DAILY Rx Instructions: TAKE ONE TABLET BY MOUTH DAILY colestipol 1 gram tablet See Rx Instructions .ROUTE .COMPLEX Qty: 60 5RF Dose Instruction: TAKE 1 TABLET ORALLY TWICE A DAY Rx Instructions: TAKE 1 TABLET ORALLY TWICE A DAY hydralazine 50 mg tablet See Rx Instructions .ROUTE .COMPLEX Qty: 60 5RF Dose Instruction: TAKE ONE TABLET BY MOUTH TWICE DAILY FOR ANXIETY Rx Instructions: TAKE ONE TABLET BY MOUTH TWICE DAILY FOR ANXIETY donepezil 10 mg tablet 10 mg PO HS Qty: 30 5RF losartan-hydrochlorothiazide 100-25 mg tablet See Rx Instructions .ROUTE .COMPLEX Qty: 30 2RF Dose Instruction: Take 1 Tablet by mouth once daily. Rx Instructions: Take 1 Tablet by mouth once daily. lansoprazole 30 mg capsule,delayed release(DR/EC) See Rx Instructions .ROUTE .COMPLEX Qty: 60 4RF Dose Instruction: Take 1 capsule by mouth twice a day for stomach Rx Instructions: Take 1 capsule by mouth twice a day for stomach metoprolol succinate 100 mg tablet extended release 24 hr See Rx Instructions .ROUTE .COMPLEX Qty: 90 0RF Dose Instruction: Take 1 Tablet by mouth once daily. Rx Instructions: Take 1 Tablet by mouth once daily. celecoxib 100 mg capsule 100 mg PO BID aspirin 81 mg Tablet,Delayed Release (Dr/Ec) 81 mg PO DAILY Referrals Follow up/Referrals: Michelle Villanueva MD [Primary Care Provider] - See instructions Liban Dominguez MD [Staff Physician] - See instructions Activity Restrictions/Add. Instructions Additional Instructions/Restrictions: Keep the wound clean and dry. Watch the wound for signs of infection, such as redness, swelling, drainage, fever. etc. Follow up in 3 days to have the packing removed and to have the wound rechecked. We are culturing the drainage from the wound. This takes 3 days to complete. This will tell exactly what bacteria is causing this and what antibiotic will treat it best. Please follow up in 3 days to go over the culture results and have the antibiotics adjusted. Take tylenol or ibuprofen for pain. Follow up with your regular doctor. Follow up with Dr. Dominguez (surgeon) to have the wound rechecked and for possible further treatment. GO TO THE ER FOR ANY WORSENING SYMPTOMS OR CONCERNS. Clinical Impressions Clinical Impression: Cutaneous abscess of back [any part, except buttock] Instructions Patient Instructions: Trimethoprim/Sulfamethoxazole (Alternative Therapy), Cephalexin, Mupirocin, DI for Skin Abscess Discharge ED Provider: Zachary Cortez [facility] General Stated complaint: spot on left shoulder Time Seen by Provider: 12/08/23 13:48 History of Present Illness Provider Complaint: He states that he has a painful swollen area on the center of his upper back. He states that it is a skin abscess and it has been slowly getting worse for the past several days. He request to have it lanced and drained. He denies any fever/chills. Related Data Home Medications Medication Instructions Recorded Confirmed aspirin 81 mg tablet,delayed 81 mg PO DAILY Blood thinner 01/17/23 11/29/23 release celecoxib 100 mg capsule 100 mg PO BID bones 01/17/23 11/29/23 Previous Rx's Medication Instructions Recorded Bifidobacterium infantis 4 mg 4 mg PO DAILY #30 caps 05/31/23 capsule (Align) polyethylene glycol 3350 17 17 g PO DAILY constipation #510 05/31/23 gram/dose oral powder (Miralax) grams trazodone 50 mg tablet See Rx Instructions .Route 06/14/23 .COMPLEX #60 tabs bisacodyl 10 mg rectal suppository 10 mg [place] DAILY PRN constipation 08/09/23 (Dulcolax (bisacodyl)) #12 ea metformin 500 mg tablet See Rx Instructions .Route 11/02/23 .COMPLEX #30 tabs colestipol 1 gram tablet See Rx Instructions .Route 11/03/23 .COMPLEX #60 tabs donepezil 10 mg tablet 10 mg PO HS #30 tabs 11/03/23 hydralazine 50 mg tablet See Rx Instructions .Route 11/03/23 .COMPLEX #60 tabs mirabegron 25 mg tablet,extended 25 mg PO DAILY incontinence #30 11/29/23 release 24 hr (Myrbetriq) tabs lansoprazole 30 mg capsule,delayed See Rx Instructions .Route 11/30/23 release .COMPLEX #60 caps losartan 100 See Rx Instructions .Route 11/30/23 mg-hydrochlorothiazide 25 mg tablet .COMPLEX #30 tabs metoprolol succinate 100 mg See Rx Instructions .Route 12/01/23 tablet,extended release 24 hr .COMPLEX #90 tabs cephalexin 500 mg capsule 500 mg PO QID #40 caps 12/08/23 mupirocin 2 % topical ointment 1 applic topical TID 7 days #15 12/08/23 grams sulfamethoxazole 800 1 tab PO BID #20 tabs 12/08/23 mg-trimethoprim 160 mg tablet (Bactrim DS) Allergies Allergy/AdvReac Type Severity Reaction Status Date / Time No Known Allergies Allergy Verified 11/29/23 10:36 [facility] Disclaimer: The information contained in this section may have been updated after the patient was seen, as this information can be updated by other users. Medical History (Updated 12/08/23 @ 15:05 by Zachary Cortez APRN) Anxiety Arthritis of right hip Bronchitis Closed displaced fracture of nasal bone Constipation COVID-19 Degenerative joint disease of both hips Deviated septum Episodes of formed visual hallucinations History of cardiac dysrhythmia History of COVID-19 History of pneumonia History of prostate cancer History of sinusitis Hx of fracture of nose Hyperglycemia Hyperlipidemia Hypertension Impaired cognition Incontinence of urine Infected sebaceous cyst Insomnia Light-headed feeling Prostate cancer Sebaceous cyst Snoring Type 2 diabetes mellitus Surgical History (Updated 11/29/23 @ 11:31 by Rich CORTEZ MD) History of cholecystectomy History of hemorrhoidectomy History of prostatectomy History of prostatectomy Status post left hip replacement Family History Other Cancer Diabetes Heart attack Hyperlipidemia Hypertension Social History Smoking Status: Former smoker tobacco type: cigarettes alcohol intake: current counseling provided: provider counseling substance use type: denies use current occupational status: retired Travel in the last 8 weeks: None household members: spouse housing: house current occupation: [employer] current occupational exposures/hazards: No caffeine: Yes ROS Obtained: Yes All systems reviewed & no additional complaints except as documented Constitutional Constitutional: Denies chills and Denies fever(s) Eyes Eyes: Denies eye discharge ENT Ears, Nose, Mouth, and Throat: Denies dizziness, Denies otalgia and Denies sore throat Cardiovascular Cardiovascular: Denies chest pain Respiratory Respiratory: Denies shortness of breath, Denies chest congestion, Denies cough, Denies stridor and Denies wheezing Gastrointestinal Gastrointestingal: Denies nausea or vomiting Musculoskeletal Musculoskeletal: Reports system reviewed and no additional complaints, except as documented and Denies arthralgias Integumentary/Breasts Skin/Breast: Reports as per HPI Neurologic Neurologic: Denies dizziness and Denies paresthesias Allergic/Immunologic Allergic/Immunologic: Denies wheezing Physical Exam General General appearance: alert and in no apparent distress Head Head exam: atraumatic, normocephalic and normal inspection Eye Eye exam: Present normal appearance, PERRL and EOMI ENT ENT exam: Present normal exam, normal oropharynx, mucous membranes moist, TM's normal bilaterally and normal external ear exam Neck Neck exam: Present normal inspection, full ROM and trachea midline; Absent meningismus or lymphadenopathy Chest Chest inspection: Present normal inspection and symmetric chest wall rise; Absent tenderness Respiratory Respiratory exam: Present normal lung sounds bilaterally; Absent respiratory dis tress Cardiovascular Cardiovascular exam: Present regular rate and normal rhythm; Absent JVD Abdominal Exam Abdominal exam: Present soft and normal bowel sounds; Absent distention, tenderness or guarding Extremities Exam Extremities exam: Present normal inspection, full ROM and normal capillary refill; Absent calf tenderness Back Exam Back exam: Present normal inspection; Absent tenderness Neurological Exam Neurological exam: Present alert and oriented X3 Psychiatric Psychiatric exam: Present normal affect and normal mood Skin Skin exam: Present erythema (on the center of his upper back, there is an area of erythema that measures 3 cm diameter, It has induration beneath it. ) Lymphatic Lymphatic Findings: no adenopathy Medical Decision Making Medical Records Medical records reviewed: No I reviewed the patient's medical records. Donte Inquiry Pt receiving controlled substance: No Lab Data Lab results reviewed: Yes I reviewed the patient's lab results. Procedures Risk/Benefits of Procedure(s) Were Explained: Yes Abscess I/D Site: back Sedation/analgesia: none Local Anesthetic: lidocaine 1% Amount of anesthesia used (mL): 2 Technique: incised with #11 blade Amount of fluid expressed (mL): 10 Irrigation: No Packing used?: plain Complications: other (none, he tolerated this well, a large amount of tannish drainage was removed. wound culture was taken. It was then packed with 1/2 inch nu-gauze)
[2023-12-08 13:50] VITALS: BP 135/58; PULSE 63; RESP 18; TEMP 36.4; O2SAT 98; BMI 30.1
[2023-12-08 15:22] VITALS: BP 135/58; PULSE 63; RESP 18; TEMP 36.4; O2SAT 98
== END 2023-12-08 15:22 | disposition home or self-care (01) ==
PROVIDERS: Emergency Provider Nurse Practitioner Family; PCP Family Medicine
DX: L02.212 Cutaneous abscess of back [any part, except buttock and flank] (principal); I10 Essential (primary) hypertension; E78.5 Hyperlipidemia, unspecified; E11.9 Type 2 diabetes mellitus without complications; Z79.84 Long term (current) use of oral hypoglycemic drugs; Z87.891 Personal history of nicotine dependence
CPT/HCPCS: 10060; 87070; 87205; 99204; 99213; G0463

== ENCOUNTER 2023-12-20 18:32 | Outpatient (CLI) | payer MEDICARE, OTHER, SELFPAY ==
[2023-12-20 18:54] LABS: Basophils % 0.8 % (0.1-2.0); Eosinophils # 0.1 K/mm3 (0.0-0.4); Eosinophils % 1.1 % (0.1-12.0); Hematocrit 46.1 % (42.0-52.0); Hemoglobin 15.1 g/dL (14.1-18.0); Lymphocytes # 1.4 K/mm3 (0.7-4.5); Lymphocytes % 26.7 % (10-50); Mean Corpuscular HGB Conc 32.8 g/dL (31.8-35.4); Mean Corpuscular Hemoglobin 32.8 pg (27.0-31.2); Mean Corpuscular Volume 100.1 fl (80-94); Mean Platelet Volume 8.6 fl (7.4-10.4); Monocytes # 0.5 K/mm3 (0.1-1.0); Monocytes % 8.5 % (1.7-9.3); Neutrophils # 3.4 K/mm3 (1.8-7.8); Neutrophils % 62.9 % (37.0-80.0); Platelet Count 317 K/mm3 (142-424); Red Cell Distribution Width 13.7 % (11.5-17.5); White Blood Count 5.4 K/mm3 (4.8-10.8)
[2023-12-20 18:58] LABS: Chloride 95 mmol/L (98-107); Potassium 4.2 mmoL/L (3.5-5.1); Sodium 130 mmol/L (136-145)
[2023-12-20 19:00] LABS: Blood Urea Nitrogen 15 mg/dl (9-20); Estimated Glomerular Filt Rate 82 ml/min (>60); GFR (African American) 100 ML/MIN (>60)
[2023-12-20 19:01] LABS: Alanine Aminotransferase 25 U/L (12-78); Albumin Level 4.3 g/dl (3.5-5.0); Albumin/Globulin Ratio 1.4 (1.1-1.8); Alkaline Phosphatase 77 U/L (38-126); Anion Gap 12.2 mEq/L (5-15); Aspartate Amino Transferase 32 U/L (17-59); Bilirubin,Total 0.9 mg/dl (0.2-1.3); Calcium 9.4 mg/dl (8.4-10.2); Carbon Dioxide 27 mmol/L (22.0-30.0); Glucose 129 mg/dl (74-100); Total Protein,Serum 7.3 g/dl (6.3-8.2)
[2023-12-20 19:31] LABS: Thyroid Stimulating Hormone 0.98 uIU/mL (0.465-4.68)
[2023-12-20 19:50] LABS: Vitamin B12 990 pg/mL (239-931)
== END 2023-12-20 23:59 ==
LOC: LAB.DROPOF 18:33
PROVIDERS: PCP Family Medicine; Visit Provider Family Medicine
DX: E11.9 Type 2 diabetes mellitus without complications (principal); Z79.4 Long term (current) use of insulin; Z79.899 Other long term (current) drug therapy
CPT/HCPCS: 80053; 82607; 84443; 85025

== ENCOUNTER 2024-01-03 06:47 | Day surgery (SDC) | payer MEDICARE, OTHER, SELFPAY ==
[2023-12-28 09:50] VITALS: BMI 30.1
[2024-01-03] MEDS: TETRACAINE 0.5% OPTH SOL 15ML OP ×3 (07:16→07:24)
[2024-01-03] MEDS: CYCLOPENTOLATE 2% OPHTH SOLN 2ML BOTTLE OP ×3 (07:17→07:24)
[2024-01-03] MEDS: PHENYLEPHRINE 2.5% OPHTH SOLN 2ML 0.0500000000000000028 ML OP ×3 (07:17→07:24)
[2024-01-03 07:19] LABS: POC Glucose,Bedside 113 (70-110)
[2024-01-03 07:24] VITALS: BP 125/64; PULSE 58; RESP 18; TEMP 37.2; O2SAT 96
[2024-01-03 08:18] VITALS: BP 129/61; PULSE 55; RESP 19; O2SAT 97
[2024-01-03] MEDS: MIDAZOLAM 2MG/2ML VIAL 1 MG IV (08:18)
[2024-01-03 08:23] VITALS: BP 130/63; PULSE 55; RESP 19; O2SAT 95
[2024-01-03] MEDS: SODIUM CHLORIDE 0.9% 10ML FLUSH SYRINGE 10 ML IV (08:26)
[2024-01-03] MEDS: LIDOCAINE 1% PF 2ML AMPULE 2 ML IJ (08:27)
[2024-01-03] MEDS: TIMOLOL 0.5% OPTH SOLN 5ML OP (08:27)
[2024-01-03] MEDS: TRI-MOXI 15MG/1MG/ML 1ML OPHTH VIAL 1 ML OP (08:27)
[2024-01-03 08:28] VITALS: BP 119/57; PULSE 54; RESP 19; O2SAT 95
[2024-01-03 08:33] VITALS: BP 117/59; PULSE 53; RESP 19; O2SAT 96
[2024-01-03 08:38] VITALS: BP 114/71; PULSE 50; RESP 16; TEMP 36.6; O2SAT 97
== END 2024-01-03 08:45 | disposition home or self-care (01) ==
PROVIDERS: PCP Family Medicine; Visit Provider Ophthalmology
PROC: (CPT 66984; principal; 2024-01-03 08:00)
DX: H53.8 Other visual disturbances; E11.36 Type 2 diabetes mellitus with diabetic cataract; H25.091 Other age-related incipient cataract, right eye
CPT/HCPCS: 66984; 82962; V2632

== ENCOUNTER 2024-01-17 06:49 | Day surgery (SDC) | payer MEDICARE, OTHER, SELFPAY ==
[2024-01-13 09:43] VITALS: BMI 29.9
[2024-01-17] VITALS (7 sets, daily range): BP systolic 126–145; BP diastolic 59–82; PULSE 54–66; RESP 16–18; TEMP 36.3–36.7; O2SAT 94–98
[2024-01-17] MEDS: TETRACAINE 0.5% OPTH SOL 15ML OP ×3 (07:02→07:03)
[2024-01-17] MEDS: PHENYLEPHRINE 2.5% OPHTH SOLN 2ML 0.0500000000000000028 ML OP ×3 (07:02→07:03)
[2024-01-17] MEDS: CYCLOPENTOLATE 2% OPHTH SOLN 2ML BOTTLE OP ×3 (07:02→07:03)
[2024-01-17] MEDS: LACTATED RINGERS 1000ML 1,000 ML 25 ML IV (07:03)
[2024-01-17] MEDS: MIDAZOLAM 2MG/2ML VIAL 1 MG IV (08:13)
[2024-01-17] MEDS: TIMOLOL 0.5% OPTH SOLN 5ML OP (08:32)
[2024-01-17] MEDS: LIDOCAINE 1% PF 2ML AMPULE 2 ML IJ (08:32)
[2024-01-17] MEDS: TRI-MOXI 15MG/1MG/ML 1ML OPHTH VIAL 1 ML OP (08:33)
--- NOTE | 2024-01-17 08:43 | HMH.PROCNOTE ---
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 The patient reports that this interferes with ADLs such as reading, watching TV and/or driving or the vision is like looking through a foggy haze and is very troubling. The patient was examined and found to have a visually significant cataract with best corrected vision of 20/400 by refraction and/or glare testing. Treatment options, risks and benefits were explained and the patient elected to have cataract surgery in an attempt to improve their vision. The patient had the eye anesthetized with topical tetracaine, the eye ways prepped and draped in the usual fashion for cataract surgery. A paracentesis and a temporal keratotomy were made. 0.2cc of 1% lidocaine PF was placed into the anterior chamber. And aqueous/viscoelastic exchange was done and a 360 degree capsulorexis was performed. Through hydrodissection and delineation with BSS on a cannula was done. The lens nucleus was phecoemulsified with CDE of 6.00. Residual cortical material was removed using automated I&A The capsular bag was deepened with viscoelastica and a PCIOL was placed in the capsular bag with good centration and stability. Residual viscoelastic was removed using automated I&A. The keratotomy incision was hydrated with BSS on a cannula. The wound were checked and found to be water tight. IOP was checked digitally and adjusted as needed so as not to be too high. 1 drop of timolol 0.5%, ofloxacin, prednisolone acetate and ketorolac was instilled and eye shield taped over the eye. The patient was taken to recovery in good condition and will be seen postoperatively.
[2024-01-18 12:02] LABS: POC Glucose,Bedside 115 (70-110)
== END 2024-01-17 08:47 | disposition home or self-care (01) ==
PROVIDERS: PCP Family Medicine; Visit Provider Ophthalmology
PROC: (CPT 66984; principal; 2024-01-17 08:00)
DX: E11.36 Type 2 diabetes mellitus with diabetic cataract (principal); H25.092 Other age-related incipient cataract, left eye; H53.8 Other visual disturbances; H53.149 Visual discomfort, unspecified; H02.834 Dermatochalasis of left upper eyelid
CPT/HCPCS: 66984; 82962; V2632

== ENCOUNTER 2024-05-08 14:44 | Outpatient (CLI) | payer MEDICARE, OTHER, SELFPAY ==
--- NOTE | 2024-05-08 14:47 | XR_ITS ---
FINAL REPORT CLINICAL HISTORY: abdominal pain COMPARISON: None FINDINGS: SINGLE VIEW ABDOMEN A single view of the abdomen was obtained. There is gas within multiple loops of large and small bowel. There is no evidence of obstruction. There is a nonspecific bowel gas pattern. No abnormal calcifications are identified. There he is moderately advanced right hip joint space narrowing. The left hip prosthesis is noted. IMPRESSION: Nonspecific bowel gas pattern. Reviewed, Interpreted and Dictated by Dayne Westbrook MD Transcribed by Naomi Guevara Authenticated and [facility]
== END 2024-05-08 23:59 | disposition home or self-care (01) ==
LOC: RAD 14:45
PROVIDERS: PCP Family Medicine; Visit Provider Family Medicine
DX: R10.9 Unspecified abdominal pain (principal)
CPT/HCPCS: 74018

== ENCOUNTER 2024-05-30 07:59 | Outpatient (CLI) | payer MEDICARE, OTHER, SELFPAY ==
--- NOTE | 2024-05-30 08:00 | CT_ITS ---
FINAL REPORT TECHNIQUE: Axial images through the abdomen and pelvis were performed both before and after the administration of intravenous contrast. This study was performed with techniques to keep radiation doses as low as reasonably achievable, (ALARA). Individualized dose reduction techniques using automated exposure control or adjustment of mA and/or kV according to the patient's size were employed. CLINICAL HISTORY: abd pain, hx CA prostate COMPARISON: None FINDINGS: The lung bases are clear. A large hiatal hernia is present, predominantly paraesophageal. Mild fatty infiltration of the liver is present. The gallbladder has been surgically resected. Moderate vascular calcifications are identified. The spleen is unremarkable. The adrenals are normal. The pancreas is unremarkable. The kidneys enhance appropriately. There is streak artifact overlying the pelvis, secondary to a left hip replacement. There is persistent presacral soft tissue density, paracentral to the right, noted on the prior CT of 2022. This focus measures 2.7 x 1.7 cm in size, visually stable, best seen on image #114 of series 5. This focal soft tissue density extends to the posterior lateral margin of the rectum. A moderate amount of stool is present in the colon. No pelvic mass or adenopathy is identified. Precontrast images demonstrate no nephrolithiasis. IMPRESSION: Large hiatal hernia, predominantly paraesophageal. Persistent presacral soft tissue density, paracentral and to the right, visually stable since the prior exam. Reviewed, Interpreted and Dictated by Dayne Westbrook MD Transcribed by Donna Dillon Authenticated and [facility]
[2024-05-30 08:26] LABS: Blood Urea Nitrogen 17 mg/dl (9-20); Estimated Glomerular Filt Rate 94 ml/min (>60); GFR (African American) 114 ML/MIN (>60)
[2024-05-30] MEDS: IOPAMIDOL-370 (76%);100ML BOTTLE 75 ML IV (09:09)
[2024-05-30] MEDS: SODIUM CHLORIDE 0.9% 10ML SYR (RAD ONLY) 10 ML IV (09:09)
== END 2024-05-30 23:59 | disposition home or self-care (01) ==
LOC: RAD 08:00
PROVIDERS: PCP Family Medicine; Visit Provider Family Medicine
DX: R10.9 Unspecified abdominal pain (principal); Z85.46 Personal history of malignant neoplasm of prostate; Z87.891 Personal history of nicotine dependence
CPT/HCPCS: 36415; 74178; 82565; 84520; Q9967

== ENCOUNTER 2024-07-25 15:22 | Outpatient (CLI) | payer MEDICARE, OTHER, SELFPAY | END 2024-07-25 23:59 | disposition home or self-care (01) | LOC: LAB 15:24 | PROVIDERS: PCP Family Medicine; Visit Provider Internal Medicine Gastroenterology | DX: Z02.9 Encounter for administrative examinations, unspecified (principal) ==

== ENCOUNTER 2024-07-30 10:13 | Outpatient (CLI) | payer MEDICARE, OTHER, SELFPAY ==
[2024-08-01 21:17] LABS: Pancreatic Elastase, Fecal >800 (>200)
== END 2024-07-30 23:59 | disposition home or self-care (01) ==
LOC: LAB 10:15
PROVIDERS: PCP Family Medicine; Visit Provider Internal Medicine Gastroenterology
DX: R14.0 Abdominal distension (gaseous) (principal); K58.0 Irritable bowel syndrome with diarrhea; R10.9 Unspecified abdominal pain
CPT/HCPCS: 82656

== ENCOUNTER 2024-08-06 14:05 | Outpatient (CLI) | payer MEDICARE, OTHER, SELFPAY ==
[2024-08-06 18:35] LABS: Coronavirus 19, PCR Not Detected (NotDetected); Influenza A, PCR Not Detected (NotDetected); Influenza B, PCR Not Detected (NotDetected)
== END 2024-08-06 23:59 | disposition home or self-care (01) ==
LOC: LAB.DROPOF 08-07 13:09
PROVIDERS: PCP Nurse Practitioner; Visit Provider Nurse Practitioner
DX: J06.9 Acute upper respiratory infection, unspecified (principal); Z87.891 Personal history of nicotine dependence
CPT/HCPCS: 87636

== ENCOUNTER 2024-09-25 12:45 | Outpatient (CLI) | payer MEDICARE, OTHER, SELFPAY ==
[2024-09-25 18:37] LABS: Alanine Aminotransferase 15 U/L (12-78); Albumin Level 4.1 g/dl (3.5-5.0); Albumin/Globulin Ratio 1.5 (1.1-1.8); Alkaline Phosphatase 58 U/L (38-126); Anion Gap 12.6 mEq/L (5-15); Aspartate Amino Transferase 26 U/L (17-59); Bilirubin,Total 0.6 mg/dl (0.2-1.3); Blood Urea Nitrogen 16 mg/dl (9-20); Calcium 9.1 mg/dl (8.4-10.2); Carbon Dioxide 25 mmol/L (22.0-30.0); Chloride 100 mmol/L (98-107); Estimated Glomerular Filt Rate 94 ml/min (>60); GFR (African American) 114 ML/MIN (>60); Globulin 2.7 g/dL (1.3-3.2); Glucose 74 mg/dl (74-100); Potassium 4.6 mmoL/L (3.5-5.1); Sodium 133 mmol/L (136-145); Total Protein,Serum 6.8 g/dl (6.3-8.2); Uric Acid 3.1 mg/dl (3.5-8.5)
[2024-09-25 19:20] LABS: Erythrocyte Sedimentation Rate 21 mm/hr (0-20)
[2024-09-27 04:23] LABS: RA Latex Turbid. <10.0 IU/mL (<14.0)
[2024-09-28 08:15] LABS: Antinuclear Antibodies, IFA Negative (.)
== END 2024-09-25 23:59 | disposition home or self-care (01) ==
LOC: LAB.DROPOF 09-26 12:38
PROVIDERS: PCP Family Medicine; Visit Provider Family Medicine
DX: M79.641 Pain in right hand (principal); E11.9 Type 2 diabetes mellitus without complications; R41.89 Other symptoms and signs involving cognitive functions and awareness; R32 Unspecified urinary incontinence; M79.89 Other specified soft tissue disorders; I10 Essential (primary) hypertension
CPT/HCPCS: 80053; 84550; 85651; 86038; 86431

== ENCOUNTER 2024-11-27 12:12 | Outpatient (CLI) | payer MEDICARE, OTHER, SELFPAY ==
[2024-11-27 19:13] LABS: Basophils # 0.1 K/mm3 (0-0.2); Basophils % 1.1 % (0.1-2.0); Eosinophils # 0.4 K/mm3 (0.0-0.4); Eosinophils % 6.2 % (0.1-12.0); Hematocrit 36.2 % (42.0-52.0); Hemoglobin 12.4 g/dL (14.1-18.0); Lymphocytes # 1.6 K/mm3 (0.7-4.5); Lymphocytes % 26.3 % (10-50); Mean Corpuscular HGB Conc 34.3 g/dL (31.8-35.4); Mean Corpuscular Hemoglobin 32.6 pg (27.0-31.2); Mean Corpuscular Volume 95.3 fl (80-94); Mean Platelet Volume 10.2 fl (7.4-10.4); Monocytes # 0.9 K/mm3 (0.1-1.0); Monocytes % 14.9 % (1.7-9.3); Neutrophils # 3.1 K/mm3 (1.8-7.8); Neutrophils % 51.2 % (37.0-80.0); Platelet Count 293 K/mm3 (142-424); Red Cell Distribution Width 13.4 % (11.5-17.5); White Blood Count 6.1 K/mm3 (4.8-10.8)
[2024-11-27 22:17] LABS: Albumin Level 4.3 g/dl (3.5-5.0); Chloride 96 mmol/L (98-107); Potassium 4.5 mmoL/L (3.5-5.1); Sodium 132 mmol/L (136-145)
[2024-11-27 22:19] LABS: Blood Urea Nitrogen 15 mg/dl (9-20); Estimated Glomerular Filt Rate 94 ml/min (>60); GFR (African American) 114 ML/MIN (>60)
[2024-11-27 22:20] LABS: Alanine Aminotransferase 15 U/L (12-78); Albumin/Globulin Ratio 1.8 (1.1-1.8); Alkaline Phosphatase 77 U/L (38-126); Anion Gap 14.5 mEq/L (5-15); Aspartate Amino Transferase 19 U/L (17-59); Bilirubin,Total 0.5 mg/dl (0.2-1.3); Calcium 8.9 mg/dl (8.4-10.2); Carbon Dioxide 26 mmol/L (22.0-30.0); Globulin 2.4 g/dL (1.3-3.2); Glucose 89 mg/dl (74-100); Total Protein,Serum 6.7 g/dl (6.3-8.2)
== END 2024-11-27 23:59 | disposition home or self-care (01) ==
LOC: LAB.DROPOF 11-28 11:18
PROVIDERS: PCP Family Medicine; Visit Provider Family Medicine
DX: Z96.641 Presence of right artificial hip joint (principal); E11.9 Type 2 diabetes mellitus without complications
CPT/HCPCS: 80053; 85025

== ENCOUNTER 2025-04-08 08:48 | Observation (INO) | payer MEDICARE, OTHER, SELFPAY ==
[2025-04-08] VITALS (16 sets, daily range): BP systolic 120–180; BP diastolic 65–93; PULSE 46–62; RESP 16–22; TEMP 36.4–36.6; O2SAT 88–100; BMI 30.5
--- NOTE | 2025-04-08 08:49 | ECG_ITS ---
APPROVED REPORT Exam: Resting ECG HR:64 bpm ECG Measurements Heart Rate 64 AXES NJ 140 P 77 QRSd 97 QRS 76 QT 406 T 30 QTc 415 Conclusion SINUS RHYTHM WITH FREQUENT VENTRICULAR PREMATURE COMPLEXES No STEMI Electronically signed by : DEBI DIAZ, 04/09/2025 02:30:21
--- NOTE | 2025-04-08 08:54 | XR_ITS ---
FINAL REPORT TECHNIQUE: Chest PA & Lateral CLINICAL HISTORY: CP substernal COMPARISON: None FINDINGS: 2 views of the chest were performed. The heart size is normal. The mediastinum is within normal limits. Mild cardiomegaly is present. There are no pleural effusions. There is no pneumothorax. The bony thorax appears intact. There is a retrocardiac opacity present, that may represent either hiatal or diaphragmatic hernia. IMPRESSION: No acute cardiopulmonary process. Reviewed, Interpreted and Dictated by Dayne Westbrook MD Transcribed by Donna Dillon Authenticated and [facility]
--- OUTSIDE RECORDS SUMMARY | 2025-04-08 09:10 | XMS_ITS | Clinical Summary ---
Author Organization [facility] Address [address] [place] [address] Care Team Providers Care Fashion Show Director Name Role Phone Justice Robles MD Primary Care Provider [phone] Source Comments This information has been disclosed to you from confidential records protectedfrom disclosure by state law. You shall make no further disclosure of thisinformation without the specific, written, and informed release of theindividual to whom it pertains, or as otherwise permitted by law. A generalauthorization for the release of medical or other information is not sufficientfor the purposes of therelease of HIV test results or diagnoses. [id number] Allergies No known active allergies Medications hydrOXYzine HCl (ATARAX) 25 MG tablet 06/12/2014 Active lansoprazole (PREVACID) 30 MG capsule 08/09/2014 Active losartan-hydroch lorothiazide (HYZAAR) 100-25 mg per tablet 08/08/2014 Activ e meloxicam (MOBIC) 15 MG tablet 07/09/2014 Active metoclopramide HCl (REGLAN) 10 MG tablet 06/27/2014 Active metoprolol succinate (TOPROL-XL) 100 MG 24 hr tablet 08/09/2014 Act katalina aspirin 81 MG EC tablet Take 81 mg by mouth daily. Active imipramine (TOFRANIL) 25 MG tabletIndication s:Incontinence of urine Take 1 tablet (25 mg total) by mouth at bedtime. 90 tablet 11 08/12/2014 Active Active Problems Problem Noted Date Diagnosed Date Incontinence of urine: S/P RALRP 08/12/2014 ED (erectile dysfunction) of organic origin: S/P RALRP with progression 08/12/2014 Malignant neoplasm of prostate 10/25/2006 Family History Medical History Relation Comments Heart disease Father Cancer Mother Relation Status Comments Father Mother Social History Tobacco Use Types Packs/Day Years Used Date Smoking Tobacco: Former Alcohol Use Standard Drinks/Week Comments Yes 0 (1 standard drink = 0.6 oz pur e alcohol) Sex and Gender Information Value Date Recorded Sex Assigned at Not on file Legal Sex Male 7:21 PM EST Gender Identity Not on file Sexual Orientation Not on file Last Filed Vital Signs Vital Sign Reading Time Taken Comments Blood Pressure 140/77 08/12/2014 1:53 PM EST Pulse 105 08/12/2014 1:53 PM EST Temperature 36.2 C (97.2 F) 08/12/2014 1:53 PM EST Respiratory Rate 14 08/12/2014 1:53 PM EST Oxygen Saturation - - Inhaled Oxygen Concentration - - Weight 108.9 kg (240 lb) 08/12/2014 1:53 PM EST Height 182.9 cm (6') 08/12/2014 1:53 PM EST Body Mass Index 32.55 08/12/2014 1:53 PM EST Plan of Treatment Not on file Care Teams Fashion Show Director Relationship Specialty Start Date End Date Justice Robles MD [address] [place] [address] PCP - General Family Medicine 08/12/14
--- OUTSIDE RECORDS SUMMARY | 2025-04-08 09:10 | XMS_ITS | Encounter Summary ---
Author Organization [place] [address] Care Team Providers Care Nuclear Criticality Safety Engineer Name Role Phone Justice Robles MD Primary Care Provider + [phone] Cisco Lee MD Unavailable [phone] Encounter Details Date Type Department Care Team (Late st Contact Info) Description 06/23/2016 Orders Only [facility] Edg [address] [facility] [address] [place] [address] Cisco Lee MD [address] [place], [place] [id number] Social History Tobacco Use Types Packs/Day Years Used Date Smoking Tobacco: Former Cigarettes Q uit: 01/18/1995 Smokeless Tobacco: Never Alcohol Use Standard Drinks/Week Comments Yes 0 (1 standard drink = 0.6 oz pur e alcohol) occassional Sex and Gender Information Value Date Recorded Sex Assigned at Not on file Legal Sex Male 2:34 PM EDT Gender Identity Not on file Sexual Orientation Not on file documented as of this encounter Functional Status * Cognitive and Functional Status Question Answer Date of Assessment Author Is the person deaf or does h e/she have serious difficulty hearing? No 06/24/2016 9:36 AM EDT Nayeli Lewis, RN Is the person blind or does he/she have serious difficulty seeing even when wearing glasses? No 06/24/2016 9:36 AM EDT Nayeli Morales RN Does this person have seriou s difficulty walking or climbing stairs? No 06/24/2016 9:36 AM EDT Nayeli Morales R N Does this person have diffic ulty dressing or bathing? No 06/24/2016 9:36 AM EDT Nayeli Morales RN documented as of this encounter Mental Status * Cognitive and Functional Status Question Answer Entry Date Author Because of a physical, menta l or emotional condition, does this person have difficulty doing errands alone such as visiting a doctor's office or shopping? No 06/24/2016 9:36 AM EDT Nayeli Morales R N Because of a physical, menta l or emotional condition, does this person have serious difficulty concentrating, remembering or making decisions? No 06/24/2016 9:36 AM EDT Nayeli Morales R N documented in this encounter Plan of Treatment Not on file documented as of this encounter Procedures Procedure Name Priority Date/Time Associated Diagnosis Comments EP LAB RECORDINGS Routine 06/23/2016 8:15 AM EDT documented in this encounter Results * EP LAB RECORDINGS (06/23/2016 8:15 AM EDT) 06/23/2016 8:15 AM EDT us Cisco Lee MD CARDIAC CATH ORDERABLES Final Result Performing Organization Address City/State/[facility] Co de Phone Number [facility] [address] [place] [address] documented in this encounter Visit Diagnoses Not on filedocumented in this encounter Additional Health Concerns Assessment Noted Time A fall risk assessment has been complete d for the patient 06/04/2016 1:15 PM EDT documented as of this encounter Care Teams Nuclear Criticality Safety Engineer Relationship Specialty Start Date End Date Justice Robles MD [address] [place] [id number] PCP - General Family Medicine 06/08/16 Cisco Lee MD [address] [place] [address] Consulting Physician Internal Medicine - Clinical Cardiac Electrophysiology 08/13/16 documented as of this encounter
--- OUTSIDE RECORDS SUMMARY | 2025-04-08 09:10 | XMS_ITS | Clinical Summary ---
Author Organization [facility] Address [address] [place] [address] Care Team Providers Care Microchip Specialist Name Role Phone Justice Robles MD Primary Care Provider + [phone] Allergies No known active allergies Medications acetaminophen (Tylenol) 500 MG tablet Take 2 tablets (1,000 mg) by mouth every 8 (eight) hours if needed. 3 Active traMADol (Ultram) 50 MG tablet Take 1-2 tablets (50-100 mg) by mouth every 8 (eight) hours if needed. Active nystatin (Mycostatin) 359652 UNIT/GM powder Apply topically 3 times a day. 4 Active metFORMIN (Glucophage) 500 MG tablet Take 1 tablet (500 mg) by mouth 1 (one) time each day. Active losartan-hydroC HLOROthiazide (Hyzaar) 100-25 MG tablet Take 1 tablet by mouth 1 (one) time each day. Active lansoprazole (Prevacid) [address] capsule TAKE 1 CAPSULE BY MOUTH TWICE A DAY FOR STOMACH Active colestipol (Colestid) 1 g tablet Take 1 tablet (1 g) by mouth 2 (two) times a day. Active donepezil (Aricept) 10 MG tablet Take 1 tablet (10 mg) by mouth every night. Active hydrALAZINE (Apresoline) 50 MG tablet TAKE ONE TABLET BY MOUTH TWICE DAILY FOR ANXIETY Active Memantine HCl ER 7 MG capsule sustained-relea se 24 hr Take 1 capsule by mouth 1 (one) time each day. 4 Active metoprolol succinate XL (Toprol-XL) 100 MG 24 hr tablet Take 1 tablet (100 mg) by mouth 1 (one) time each day. Active tadalafil (Adcirca) 20 MG tablet Take 1 tablet PO at least 1 hour prior to sexual activity as needed. Max dose is 20 mg in in 24 hours. 6 tablet 1 4 Active Trospium Chloride ER 60 MG capsule sustained-relea se 24 hr Take 1 capsule (60 mg) by mouth 1 (one) time each day. 90 capsule 2 5 Active Active Problems No known active problems Family History Medical History Relation Name Comments Heart disease Father Cancer Mother Diabetes Sister Hypertension Sister Relation Name Status Comments Father Mother Sister Social History Tobacco Use Types Packs/Day Years Used Date Smoking Tobacco: Former Cigarettes Smokeless Tobacco: Never Tobacco Cessation:Counseling Given: Not Answered Alcohol Use Standard Drinks/Week Comments Never 0 (1 standard drink = 0.6 oz pur e alcohol) PHQ-2 Answer Date Recorded Patient Health Questionnaire-2 Score 0 08/27/2024 PHQ-9 Answer Date Recorded Patient Health Questionnaire-9 Score 0 08/27/2024 Sex and Gender Information Value Date Recorded Sex Assigned at Not on file Legal Sex Male 6:41 PM EDT Gender Identity Not on file Sexual Orientation Not on file Last Filed Vital Signs Vital Sign Reading Time Taken Comments Blood Pressure 127/65 08/27/2024 10:07 AM EST Pulse 58 07/16/2024 10:55 AM EDT Temperature 36.7 C (98.1 F) 08/27/2024 10:07 AM EST Respiratory Rate - - Oxygen Saturation 100% 08/27/2024 10:07 AM EST Inhaled Oxygen Concentration - - Weight 102 kg (224 lb 13.9 oz) 08/27/2024 10:07 AM EST Height 182.9 cm (6') 08/27/2024 10:07 AM EST Body Mass Index 30.5 08/27/2024 10:07 AM EST Plan of Treatment Health Maintenance Due Date Last Done Comments [facility]-Hepatitis C Screening 1950 [facility]-Medicare Annual Wellness (AWV) 1950 [facility]-/Child/Adol SDOH Screenings 1950 [facility]- SDOH Screenings 1966 [facility]-Adult SDOH Screenings 1966 [facility]-Zoster Vaccines (1 of 2) 1998 [facility]-DTaP,Tdap,and Td Vaccines (2 - Td or Tdap) 07/08/2021 07/08/2011, 12/13/1996 [facility]-Pneumococcal Vaccine: 50+ Years (2 of 2 - PCV) 07/29/2022 07/29/2021 [facility]-RSV Vaccine: 60+ Years or (1 - 1-dose 75+ series) 2023 [id number] Vaccine ( - 2023- season) 2024 06/24/2021, 11/13/2020, 10/16/2020 [facility]-Influenza Vaccine (Season Ended) 2025 08/23/2023, 10/06/2022, 07/29/2021, Additional history exists [facility]-Depression Screening 08/27/2025 08/27/2024, 08/10 [facility]-Obesity Intervention Completed 08/27/2024, 04/2024 HPV Vaccines Aged Out No longer eligi ble based on patient's age to complete this topic [facility]-HIB Vaccines Aged Out No longer e ligible based on patient's age to complete this topic [facility]-Hepatitis A Vaccines Aged Out No longer eligible based on patient's age to complete this topic [facility]-IPV Vaccines Aged Out No longer e ligible based on patient's age to complete this topic [facility]-Rotavirus Vaccines Aged Out No lo nger eligible based on patient's age to complete this topic Insurance MEDICARE GENERIC COMMERCIAL Care Teams Microchip Specialist Relationship Specialty Start Date End Date Justice Robles MD [address] [place] [address] PCP - General 02/20/21
--- OUTSIDE RECORDS SUMMARY | 2025-04-08 09:10 | XMS_ITS | Encounter Summary ---
Author Organization [facility] [place] [address] Care Team Providers Care Forming Tube Selector Name Role Phone Justice Robles MD Primary Care Provider + [phone] Cisco Lee MD Unavailable [phone] Encounter Details Date Type Department Care Team (Late st Contact Info) Description 05/21/2019 Orders Only [facility]tr Edg [address] [facility] [address] [place] [address] Cisco Lee MD [address] [place], [place] [id number] Social History Tobacco Use Types Packs/Day Years [...] as of this encounter Functional Status * Is the person deaf or does he/she have serious difficulty hearing? Answer Date of Assessment Author No 06/24/2016 9:36 AM EDT Torres Morales, RN * Is the person blind or does he/she have serious difficulty seeing even when wearing glasses? Answer Date of Assessment Author No 06/24/2016 9:36 AM EDT Torres Morales RN * Does this person have serious difficulty walking or climbing stairs? Answer Date of Assessment Author No 06/24/2016 9:36 AM EDT Torres Morales RN * Does this person have difficulty dressing or bathing? Answer Date of Assessment Author No 06/24/2016 9:36 AM EDT Torres Morales RN * Because of a physical, mental or emotional condition, does this person have difficulty doing errands alone such as visiting a doctor's office or shopping? Answer Date of Assessment Author No 06/24/2016 9:36 AM EDT Torres Morales RN documented as of this encounter Mental Status * Because of a physical, mental or emotional condition, does this person have serious difficulty concentrating, remembering or making decisions? Answer Entry Date Author No 06/24/2016 9:36 AM EDT Torres Morales RN documented in this encounter Plan of Treatment Not on file documented as of this encounter Procedures Procedure Name Priority Date/Time Associated Diagnosis Comments EP LAB RECORDINGS Routine 05/21/2019 7:40 AM EDT documented in this encounter Results * EP LAB RECORDINGS (05/21/2019 7:40 AM EDT) 05/21/2019 7:40 AM EDT us Cisco Lee MD CARDIAC CATH ORDERABLES Final Result Performing Organization Address City/State/[facility] Co de Phone Number [facility] [address] [place] [address] documented in this encounter Visit Diagnoses Not on filedocumented in this encounter Additional Health Concerns Assessment Noted Time A fall risk assessment has been complete d for the patient 06/04/2016 1:15 PM EDT documented as of this encounter Care Teams Forming Tube Selector Relationship Specialty Start Date End Date Justice Robles MD [address] [place] [id number] PCP - General Family Medicine 06/08/16 Cisco Lee MD [address] [facility] [place] [address] Consulting Physician Internal Medicine - Clinical Cardiac Electrophysiology 08/13/16 documented as of this encounter
--- OUTSIDE RECORDS SUMMARY | 2025-04-08 09:11 | XMS_ITS | Clinical Summary ---
Author Organization [facility] Address [address] [place] [address] Phone Care Team Providers Care Avionics Shop Supervisor Name Role Phone Justice Robles MD Primary Care Provider [phone] Cisco Lee MD Unavailable [phone] Allergies No known active allergies Medications losartan-hydrochl orothiazide (HYZAAR) 100-25 mg Oral Tablet Take 1 Tab by mouth daily. Active lansoprazole (PREVACID) 30 mg Oral Capsule, Delayed Release(E.C.) Take 30 mg by mouth 2 times daily. Active MULTIVITAMIN ORAL Take 1 Tab by mouth daily. Active Tadalafil (CIALIS) 20 mg Oral TabletIndications :Erectile dysfunction, unspecified erectile dysfunction type Take 1 Tablet by mouth as needed. 15 Tablet 2 3 Active hydrALAZINE (APRESOLINE) 50 mg Oral Tablet Take 50 mg by mouth 2 times daily. pt unsure how many times per day 3 Active donepeziL (ARICEPT) 10 mg Oral Tablet Take 10 mg by mouth nightly. 3 Active metFORMIN (GLUCOPHAGE) 500 mg Oral Tablet Take 500 mg by mouth daily. 3 Active colestipoL (COLESTID) 1 gram Oral Tablet 1 g. 3 Active Fesoterodine 8 mg Oral Tablet Sustained Release 24 hrIndications:Mix ed stress and urge urinary incontinence TAKE ONE TABLET BY MOUTH DAILY 27 Tablet 3 4 Active memantine (NAMENDA) 5 mg Oral Tablet Take 14 mg by mouth daily. Active trospium (SANCTURA XR) 60 mg Oral Capsule, Sust. Release 24 hr Take by mouth daily. Active oxyBUTYnin (OXYTROL) 3.9 mg/24 hr TD Patch Semiweekly Place 1 Patch onto the skin two times a week. Active metoprolol succinate ER (TOPROL-XL) 100 mg Oral Tablet Sustained Release 24 hr Take 100 mg by mouth daily. Active acetaminophen (TYLENOL) 500 mg Oral Tablet Take 2 Tablets by mouth every 8 hours as needed for Pain. 60 Tablet 10/30/2024 2:41 PM EST 5 Active tiZANidine (ZANAFLEX) 2 mg Oral Tablet Take 1 Tablet by mouth every 8 hours as needed. 60 Tablet 10/30/2024 2:41 PM EST 5 Active aspirin 81 mg Oral Tablet, Chewable Take 1 Tablet by mouth 2 times daily. 60 Tablet 10/30/2024 2:41 PM EST 5 Active cetirizine (ZYRTEC) 10 mg Oral TabletIndications :Allergic contact dermatitis, unspecified trigger Take 1 Tablet by mouth daily. 30 Tablet 5 Active famotidine (PEPCID) 40 mg Oral TabletIndications :Allergic contact dermatitis, unspecified trigger Take 1 Tablet by mouth every evening. 30 Tablet 5 Active oxyCODONE (ROXICODONE) 5 mg Oral TabletIndications :Status post total hip replacement, right Take 1 Tablet by mouth every 6 hours as needed for Major Surgery/Pema stewart (G89.18). 40 Tablet 5 Active Active Problems Problem Noted Date Diagnosed Date Abscess of back, except buttock 10/23/2024 Acute URI 10/23/2024 Anxiety 10/23/2024 Bilateral pneumonia 10/23/2024 Bronchitis 10/23/2024 Chronic rectal pain 10/23/2024 Constipation 10/23/2024 COVID-19 10/23/2024 Deviated septum 10/23/2024 Fracture of nasal bones, ini tial encounter for closed fracture 10/23/2024 Hallucination, drug-induced 10/23/2024 History of COVID-19 10/23/2024 History of prostate cancer 10/23/2024 History of prostatectomy 10/23/2024 History of pneumonia 10/23/2024 Hx of fracture of nose 10/23/2024 Hyperglycemia 10/23/2024 Impaired cognition 10/23/2024 Incarcerated umbilical hernia 10/23/2024 Infected sebaceous cyst 10/23/2024 Insomnia 10/23/2024 Light-headed feeling 10/23/2024 Nasal septum fracture 10/23/2024 Type 2 diabetes mellitus 10/23/2024 Assessment & Plan (10/30/2024 1:58 PM EST): -Restarted on [employer] metformin by primary team. Most recent A1c 6.5 Sugars reviewed Changed diet to diabetic diet Primary localized osteoarthritis of left hip Status post total hip replacement, right 023 Osteoarthritis of right hip 06/16/2023 Overview (06/16/2023): Added automatically from request for surgery [id number] Assessment & Plan (10/30/2024 1:58 PM EST): Status post right total hip replacement on 10/29/2024 Postoperative management including pain control, anticoagulation, ambulation management per primary team. Labs reviewed today; hemoglobin with significant drop from prior however blood counts have been around this baseline intermittently. Will monitor for now. Vitals are stable. Continues on twice daily aspirin per primary team. Also on Celebrex per primary. Assessment & Plan (10/29/2024 1:33 PM EST): POD #0 Right hip pain 06/15/2023 S/P ablation of atrial fibrillation 06/23/2016 Overview (06/23/2016): PVI for atrial fibrillation on 06/23/16, by Dr. Lee Gonzalez's esophagus Prostate cancer Unspecified essential hypertension Assessment & Plan (10/30/2024 1:58 PM EST): -Pressures are mostly acceptable. Restart home medications as reconciled and as appropriate. Assessment & Plan (10/29/2024 1:32 PM EST): Controlled at present. BP Readings from Last 1 Encounters: 10/29/24 131/71 Esophageal reflux Hyperlipidemia Osteoarthrosis involving lower leg MOLLY (obstructive sleep apnea) PAF (paroxysmal atrial fibrillation) Assessment & Plan (10/30/2024 1:58 PM EST): -No acute issues reported. Restart home medications as reconciled and as appropriate. Does not appear to be on anticoagulation based on reconciled home medications. Further management per primary/cardiology on outpatient basis. Assessment & Plan (10/29/2024 1:32 PM EST): Regular now. Follow [place] (allergic rhinitis) Encounters Date Type Department Care Team Description 01/29/2025 Telephone [facility] [address] [place] [address] Jade Jules, Life Underwriter Missed Appointment from Last 3 Months Immunizations Immunization Administration Dates Next Due Influenza Vaccine, Unspecified Formulation 08/10 Tdap 07/08/2011 Surgical History Surgery Date Site/Laterality Comments PROSTATE SURGERY FINGER SURGERY CHOLECYSTECTOMY 10/2014 CARDIAC CATHETERIZATION UPPER GASTROINTESTINAL ENDOSCOPY COLONOSCOPY polyp KNEE SURGERY repair left HAND SURGERY R middle finger ABLATION OF DYSRHYTHMIC FOCUS 06/23/2016 PVI for atrial fibrillation by Dr. Lee ABLATION OF DYSRHYTHMIC FOCUS 05/21/2019 EPS, 3D map, redo AF ablation-Dr. Lee HIP ARTHROPLASTY 09/22/2023 Hip/Left Left Total Hip Replacement; Surgeon: Jung Murphy MD; Location: [facility] MAIN OR; Service: Orthopedics Medical devices from this surgery are in the Medical Devices section. CATARACT REMOVAL Bilateral HIP ARTHROPLASTY 10/29/2024 Hip/Right Right Total Hip Replacement; Surgeon: Jung Murphy MD; Location: [facility] MAIN OR; Service: Orthopedics Medical devices from this surgery are in the Medical Devices section. Medical History Medical History Date Comments Gonzalez's esophagus Prostate cancer (HCC) prostate r emoved Osteoarthrosis, unspecified whether generalized or localized, lower leg AR (allergic rhinitis) PAF (paroxysmal atrial fibrillation) (HCC) MOLLY (obstructive sleep apnea) pt denies - no machine Hyperlipidemia HTN (hypertension) Esophageal reflux Barretts esoph curly Hiatal hernia Urinary incontinence leakage - w ears a pad Heart murmur as child Family History Medical History Relation Name Comments Heart Disease Father Cancer Mother Diabetes Sister High Blood Pressure Sister Anesth Problems Neg Hx Relation Name Status Comments Father Mother Sister Alive Social History Tobacco Use Types Packs/Day Years Used Date Smoking Tobacco: Former Cigarettes Q uit: 01/18/1995 Smokeless Tobacco: Never Tobacco Cessation:Counseling Given: Not Answered Alcohol Use Standard Drinks/Week Comments Yes 0 (1 standard drink = 0.6 oz pur e alcohol) occassional [facility] Utilities Answer Date Recorded In the past 12 months has th e electric, gas, oil, or water company threatened to shut off services in your home? No 10/29/2024 Overall Financial Resource Strain (CARDIA) Answe r Date Recorded How hard is it for you to pa y for the very basics like food, housing, medical care, and heating? Not hard at all 10/29/2024 PHQ-2 Answer Date Recorded PHQ-2 Total Score 0 10/29/2024 [facility] - Occupational Stress Questionnaire Answer Date Recorded Do you feel stress - tense, restless, nervous, or anxious, or unable to sleep at night because your mind is troubled all the time - these days? Only a little 10/29/2024 Exercise Vital Sign Answer Date Recorde d On average, how many days pe r week do you engage in moderate to strenuous exercise (like a brisk walk)? 0 days 10/29/2024 On average, how many minutes do you engage in exercise at this level? 0 min 10/29/2024 Hunger Vital Sign Answer Date Recorded Within the past 12 months, y ou worried that your food would run out before you got the money to buy more. Never true 10/29/19 Within the past 12 months, t he food you bought just didn't last and you didn't have money to get more. Never true 10/29/2024 PRAPARE - Transportation Answer Date Re corded In the past 12 months, has l ack of transportation kept you from medical appointments or from getting medications? No 09/09 In the past 12 months, has l ack of transportation kept you from meetings, work, or from getting things needed for daily living? No 09/23/2023 [facility] IP Transportation Answer D ate Recorded In the past 12 months, has l ack of reliable transportation kept you from medical appointments, meetings, work or from getting things needed for daily living? No 10/29/2024 Sex and Gender Information Value Date Recorded Sex Assigned at Not on file Legal Sex Male 2:34 PM EDT Gender Identity Not on file Sexual Orientation Not on file Obstetrics History Last Filed Vital Signs Vital Sign Reading Time Taken Comments Blood Pressure 168/75 10/30/2024 8:11 AM EST Pulse 67 10/30/2024 8:11 AM EST Temperature 36.5 C (97.7 F) 10/30/2024 8:11 AM EST Respiratory Rate 18 10/30/2024 8:11 AM EST Oxygen Saturation 96% 10/30/2024 8:11 AM EST Inhaled Oxygen Concentration - - Weight 102.1 kg (225 lb) 11/09/2024 9:24 AM EST Height 182.9 cm (6') 11/09/2024 9:24 AM EST Body Mass Index 30.52 11/09/2024 9:24 AM EST Plan of Treatment Health Maintenance Due Date Last Done Comments Wellness Exam Medicare 1951 Kidney Health: uACR 1958 Diabetic Eye Exam 1966 Zoster (1 of 2) 1998 Lipids 01/19/2012 01/18/2011, 01/08, 06/17/2010, Additional history exists DTaP/TDaP/Td (2 - Td or Tdap) 07/08/2021 07/08/2011, 12/13/1996 Pneumococcal Vaccine 50+ (2 of 2 - PCV) 07/29/2022 07/29/2021 RSV or 60+ (1 - 1-dose 75+ series) 2023 COVID-19 Vaccine ( season) 2024 06/24/2021, 11/13/2020, 10/16/2020 Hemoglobin A1c 04/17/2025 10/18/2024, 09/07/2023 Influenza Vaccine (Season Ended) 2025 08/23/2023, 10/06/2022, 07/29/2021, Additional history exists Kidney Health: eGFR 10/18/2025 10/18/2024, 09/07/2023, 05/14/2019, Additional history exists Colon Cancer Screening Discontinued Colonoscopy Discontinued 06/04/2016 (Post poned), 07/02/2005 Hepatitis C Screening Addressed 11/19/2016 (Postpon ed) Overridden with the intention of not completing the topic Cologuard Discontinued FIT Discontinued Hepatitis B Vaccine Aged Out No longe r eligible based on patient's age to complete this topic Meningococcal B Vaccine Aged Out No l onger eligible based on patient's age to complete this topic Sigmoidoscopy Discontinued Virtual Colonography Discontinued Goals Goal Patient Goal Type Associated Problems Recent Progress Patient-Stated? Author Blood Pressure < 140/90 Blood Pressure 168/75(2024 8:11 AM EST) No Saadia Steinberg BMI (Calculated) < 30 General 30.6(11/09/19 9:24 AM EST) No Saadia Steinberg Maintain a healthy diet, exercise regularly and maintain an ideal body weight General No Saadia Steinberg Stay Tobacco Free Lifestyle No Saadia Steinberg HEMOGLOBIN A1C < 7.0 Result Component 6.5( 1:46 PM EST) Saadia Velásquez Medical Devices Implanted Type Area Process Eng Device Identifier Shelf Expiration Date Model / Serial / Lot Screw 6.5x25mm Trident No Ss Hex Thrd St Lpro Actb Hip - [id number] Implanted:Qty: 1 on 09/22/2023 by Jung Murphy MD at [facility] Left: Hip ОЛЕГ:ORTHOPED ICS [id number] 07/20/2028 7109-6195 / / [id number] Cup Actb Trident Ii Sz-F 56mm Clstr Scr 5hl Tritan Hap Prim - [id number] Implanted:Qty: 1 on 09/22/2023 by Jung Murphy MD at [facility] Left: Hip ОЛЕГ:ORTHOPED ICS [id number] 07/04/2028 702-04-56F / / [id number] Insert O Degree Trident X 3 36mm Code F - [id number] Implanted:Qty: 1 on 09/22/2023 by Jung Murphy MD at [facility] Left: Hip ОЛЕГ:ORTHOPED ICS [id number] 03/13/2028 723-00-36F / / [id number] Screw 6.5x25mm Trident No Ss Hex Thrd St Lpro Actb Hip - [id number] Implanted:Qty: 1 on 09/22/2023 by Jung Murphy MD at [facility] Left: Hip ОЛЕГ:ORTHOPED ICS [id number] 05/25/2028 6764-8229 / / [id number] Stem Hip Insignia High Offset 41mm X 109mm Size 7 - [id number] Implanted:Qty: 1 on 09/22/2023 by Jung Murphy MD at [facility] Left: Hip ОЛЕГ:ORTHOPED ICS [id number] 04/26/2028 6550-9297 / / [id number] Head Fem V-40 36mm-5mm Nk Biolox Delta Cerm Tapr Prim Mod - [id number] Implanted:Qty: 1 on 09/22/2023 by Jung Murphy MD at [facility] Left: Hip ОЛЕГ:ORTHOPED ICS [id number] 05/17/2028 6570-0-036 / / [id number] Screw 6.5x25mm Trident No Ss Hex Thrd St Lpro Actb Hip - [id number] Implanted:Qty: 1 on 10/29/2024 by Jung Murphy MD at [facility] Right: Hip ОЛЕГ:ORTHOPED ICS [id number] 08/29/2029 2828-2918 / / [id number] Head Fem V-40 36mm-2.5mm Nk Biolox Delta Cerm Tapr Prim Mod - [id number] Implanted:Qty: 1 on 10/29/2024 by Jung Murphy MD at [facility] Right: Hip ОЛЕГ:ORTHOPED ICS [id number] 05/28/2029 6570-0-436 / / [id number] Stem Hip Insignia High Offset 41mm X 109mm Size 7 - [id number] Implanted:Qty: 1 on 10/29/2024 by Jung Murphy MD at [facility] Right: Hip ОЛЕГ:ORTHOPED ICS [id number] 08/27/2029 9644-2880 / / [id number] Screw 6.5x25mm Trident No Ss Hex Thrd St Lpro Actb Hip - [id number] Implanted:Qty: 1 on 10/29/2024 by Jung Murphy MD at [facility] Right: Hip ОЛЕГ:ORTHOPED ICS [id number] 08/29/2029 0745-6929 / / [id number] Cup Actb Trident Ii Sz-F 58mm Clstr Scr 5hl Tritan Hap Prim - [id number] Implanted:Qty: 1 on 10/29/2024 by Jung Murphy MD at [facility] Right: Hip ОЛЕГ:ORTHOPED ICS [id number] 02/02/2028 702-04-58F / / [id number] Insert O Degree Trident X 3 36mm Code F - [id number] Implanted:Qty: 1 on 10/29/2024 by Jung Murphy MD at [facility] Right: Hip ОЛЕГ:ORTHOPED ICS [id number] 03/28/2029 723-00-36F / / [id number] Procedures Procedure Name Priority Date/Time Associated Diagnosis Comments COMPREHENSIVE METABOLIC PANEL Routine 10/18/2024 1:46 PM EST Pre-op testing HEMOGLOBIN A1C Routine 10/18/2024 1:46 PM EST Pre-op testing History of familial combined hyperlipidemia LIPID PANEL REFLEX Routine 01/18/2011 11 :45 AM EDT Hyperlipidemia NEC/NOS Unspecified essential hypertension Encounter for long-term (current) use of other medications from Last 3 Months or Most Recently Relevant to Health Maintenance Results * (ABNORMAL) HEMOGLOBIN A1C (10/18/2024 1:46 PM EST) Hgb A1C 6.5(H) 4.2 - 5.6 % 10/18/2024 7:32 PM EST [facility] Est. Avg Glucose 140 mg/dL 10/18/2024 7:32 PM EST [facility] Blood VENOUS BLOOD / Unknown Venipuncture / Unknown 10/18/2024 1:46 PM EST 10/18/2024 1:55 PM EST Narrative [facility] - 10/18/2024 7:32 PM EST REFERENCE RANGE: Normal: 4.0-5.6% Pre-diabetes: 5.7-6.4% Provisional diagnosis of diabetes: >6.4% Hgb F>10% and anything which shortens red cell survival, such as hemolytic anemia, or unstable hemoglobin variants such as HbSS, HbSC, or HbCC, will lower the HbA1c value associated with a given level of glycemic control. [facility]O CHEMISTRY ORDERABLES Final Result [facility] [address] [facility] , [place] [address] * (ABNORMAL) COMPREHENSIVE METABOLIC PANEL (10/18/2024 1:46 PM EST) Sodium 133(L) 136 - 145 mmol/L 10/18/2024 2:57 PM EST [facility] Potassium 3.9 3.5 - 5.0 mmol/L 10/18/2024 2:57 PM EST [facility] Chloride 96(L) 98 - 107 mmol/L 10/18/2024 2:57 PM EST [facility] Total CO2 23 22 - 29 mmol/L 10/18/2024 2:57 PM EST [facility] Anion Gap 14 7 - 16 mmol/L 10/18/2024 2:57 PM EST [facility] Calcium 9.6 8.8 - 10.4 mg/dL 10/18/2024 2:57 PM EST [facility] Glucose Lvl 98 70 - 99 mg/dL 10/18/2024 2:57 PM EST [facility] BUN 15 8 - 23 mg/dL 10/18/2024 2:57 PM EST [facility] Creatinine 0.85 0.67 - 1.30 mg/dL 10/18/2024 2:57 PM EST [facility] Albumin 4.5 3.2 - 4.6 gm/dL 10/18/2024 2:57 PM EST [facility] Total Protein 7.5 6.4 - 8.3 gm/dL 10/18/2024 2:57 PM EST [facility] Bili Total 0.5 0.2 - 1.4 mg/dL 10/18/2024 2:57 PM EST [facility] ALT 12 <=41 U/L 10/18/2024 2:57 PM EST [facility] AST 19 <=40 U/L 10/18/2024 2:57 PM EST [facility] Alk Phos 59 40 - 129 U/L 10/18/2024 2:57 PM EST [facility] eGFR (CKD-EPIcr 2020) 90 >=60 mL/min/1.7 3 m2 10/18/2024 2:57 PM EST [facility] Comment:Estimated GFR was ca lculated using the CKD-EPIcr (2020) equation refit without race. The equation is recommended by the National Kidney Foundation - [place] [employer] of Nephrology Task Force. Blood VENOUS BLOOD / Unknown Venipuncture / Unknown 10/18/2024 1:46 PM EST 10/18/2024 1:55 PM EST [facility] CASTRO CHEMISTRY ORDERABLES Final Result [facility] [address] [facility] [address] [place] [address] [facility] [address] [place] [address] * LIPID PANEL REFLEX (01/18/2011 11:45 AM EDT) Cholesterol 198 <=200 mg/dL [facility] Comment: < 200 Desirable 200 - 239 Borderline High >= 240 High Triglyceride 136 <=150 mg/dL [facility] Comment: < 150 Normal 150 - 199 Borderline High 200 - 499 High >= 500 Very High HDL 43 >=40 mg/dL [facility] Comment: > 60 Optimal 40 - 60 Acceptable < 40 Low Blood specimen (specimen) 01/18/2011 11:45 AM EDT 01/18/2011 6:49 PM EDT us Darci Rivas MD CHEMISTRY ORDERABLES Final Resul t [facility] [address] [place] [address] from Last 3 Months or Most Recently Relevant to Health Maintenance Insurance [place]ICARE [place] Advance Directives For more information, please contact: [phone] * Full Code (Latest Code Status on File) Date Activated Date Inactivated Comments 10/29/2024 3:34 PM 10/30/2024 6:25 PM * Full Code Date Activated Date Inactivated Comments 09/22/2023 2:10 PM 09/23/2023 5:58 PM * Full Code Date Activated Date Inactivated Comments 05/22/2019 9:45 AM 05/22/2019 2:36 PM * Full Code Date Activated Date Inactivated Comments 06/24/2016 9:34 AM 06/24/2016 4:14 PM Care Teams Avionics Shop Supervisor Relationship Specialty Start Date End Date Justice Robles MD [address] [place] [address] PCP - General Family Medicine 06/08/16 Cisco Lee MD [address] [place] [address] [address] [place] [id number] Consulting Physician Internal Medicine - Clinical Cardiac Electrophysiology 08/13/16
[2025-04-08] MEDS: ASPIRIN 81MG CHEWABLE TABLET 324 MG PO (09:13)
[2025-04-08] MEDS: MORPHINE 4MG/ML SYRINGE 4 MG IV (09:13)
[2025-04-08 09:16] LABS: Basophils # 0.1 K/mm3 (0-0.2); Basophils % 1.1 % (0.1-2.0); Eosinophils # 0.2 Kmm3 (0.0-0.4); Eosinophils % 2.6 % (0.1-12.0); Hematocrit 41.2 % (42.0-52.0); Hemoglobin 13.7 g/dL (14.1-18.0); Immature Granulocytes # 0.02 10^3uL; Immature Granulocytes % 0.4 %; Lymphocytes # 1.9 K/mm3 (0.7-4.5); Lymphocytes % 32.5 % (10-50); Mean Corpuscular HGB Conc 33.3 g/dL (31.8-35.4); Mean Corpuscular Hemoglobin 30.4 pg (27.0-31.2); Mean Corpuscular Volume 91.4 fl (80-94); Mean Platelet Volume 9.8 fl (7.4-10.4); Monocytes # 0.7 K/mm3 (0.1-1.0); Monocytes % 12.1 % (1.7-9.3); Neutrophils # 2.9 K/mm3 (1.8-7.8); Neutrophils % 51.3 % (37.0-80.0); Nucleated Red Blood Cells # 0 10^3/uL; Nucleated Red Blood Cells % 0 %; Platelet Count 254 K/mm3 (142-424); Red Blood Count 4.51 M/mm3 (4.60-6.20); Red Cell Distribution Width 14.6 % (11.5-17.5); Red Cell Distribution Width-SD 49.1 fL; White Blood Count 5.7 K/mm3 (4.8-10.8)
[2025-04-08 09:21] LABS: Albumin Level 4.8 g/dl (3.5-5.0); Chloride 95 mmol/L (98-107)
[2025-04-08 09:22] LABS: Potassium 4.2 mmoL/L (3.5-5.1); Sodium 133 mmol/L (136-145)
[2025-04-08 09:24] LABS: Blood Urea Nitrogen 13 mg/dl (9-20); Creatinine Clearance Estimated 91 mL/min (50-200); Estimated Glomerular Filt Rate 94 ml/min (>60); GFR (African American) 114 ML/MIN (>60); Lipase 45 U/L (23-300)
[2025-04-08 09:25] LABS: Alanine Aminotransferase 15 U/L (12-78); Albumin/Globulin Ratio 1.5 (1.1-1.8); Alkaline Phosphatase 49 U/L (38-126); Anion Gap 14.2 mEq/L (5-15); Aspartate Amino Transferase 30 U/L (17-59); Bilirubin,Total 0.8 mg/dl (0.2-1.3); Calcium 9.3 mg/dl (8.4-10.2); Carbon Dioxide 28 mmol/L (22.0-30.0); Globulin 3.1 g/dL (1.3-3.2); Glucose 114 mg/dl (74-100); Total Protein,Serum 7.9 g/dl (6.3-8.2)
--- NOTE | 2025-04-08 09:25 | [facility]H.EDCP ---
Discharge Plan Disposition Chief Complaint: Chest Pain Prescriptions Prescriptions: No Action oxybutynin chloride 10 mg tablet extended release 24hr 10 mg PO DAILY 90 Days Qty: 180 1RF trospium 60 mg capsule,extended release 24hr PO Patient Comments: TAKE 1 CAPSULE (60 MG) BY MOUTH 1 (ONE) TIME EACH DAY. potassium chloride 10 mEq capsule, extended release PO Patient Comments: TAKE 1 CAPSULE BY MOUTH DAILY tramadol 50 mg tablet 50 mg PO Q8H PRN (Reason: Pain) Qty: 30 0RF colestipol 1 gram tablet See Rx Instructions .ROUTE .COMPLEX Qty: 60 5RF Dose Instruction: TAKE 1 TABLET ORALLY TWICE A DAY Rx Instructions: TAKE 1 TABLET ORALLY TWICE A DAY hydralazine 50 mg tablet See Rx Instructions .ROUTE .COMPLEX Qty: 60 5RF Dose Instruction: TAKE ONE TABLET BY MOUTH TWICE DAILY FOR ANXIETY Rx Instructions: TAKE ONE TABLET BY MOUTH TWICE DAILY FOR ANXIETY donepezil 10 mg tablet 10 mg PO HS Qty: 30 5RF metoprolol succinate 100 mg tablet extended release 24 hr See Rx Instructions .ROUTE .COMPLEX Qty: 90 0RF Dose Instruction: Take 1 Tablet by mouth once daily. Rx Instructions: Take 1 Tablet by mouth once daily. losartan-hydrochlorothiazide 100-25 mg tablet See Rx Instructions .ROUTE .COMPLEX Qty: 30 2RF Dose Instruction: Take 1 Tablet by mouth once daily. Rx Instructions: Take 1 Tablet by mouth once daily. metformin 500 mg tablet See Rx Instructions .ROUTE .COMPLEX Qty: 30 5RF Dose Instruction: TAKE ONE TABLET BY MOUTH DAILY Rx Instructions: TAKE ONE TABLET BY MOUTH DAILY memantine 14 mg capsule,sprinkle,ER 24hr 14 mg PO DAILY Qty: 30 2RF lansoprazole 30 mg capsule,delayed release(DR/EC) See Rx Instructions .ROUTE .COMPLEX Qty: 60 5RF Dose Instruction: Take 1 capsule by mouth twice a day for stomach Rx Instructions: Take 1 capsule by mouth twice a day for stomach Referrals Follow up/Referrals: Provider,Referral, MD [Primary Care Provider, Medical] - See instructions Print Language Print Language: Angolan Discharge ED Provider: Luis Loza General Chief Complaint: Chest Pain Stated Complaint: chest pain Time Seen by Provider: 04/08/25 08:53 Mode of Arrival: Ambulatory Source of Information: Patient Description of Symptoms (Recalled from ER Triage Doc. by RN): c/o left sided chest pain x 3 days. pain does not radiate and rates it a 5-6/10. also of note pt c/o a cough that he has had for some time that has not improved. no meds prior to arrival. states his only cardiac hx is an ablation 10+ years ago for A-Fib. History of Present Illness HPI narrative: Patient is 74-year-old male with past medical history of atrial fibrillation status post ablation not on any anticoagulation currently who presents to the emergency department for evaluation of chest pain. Onset was acute over the last 3 days, persistent, substernal and left-sided does not radiate through to the back. Not particularly modifiable. No trauma. No other acute complaints at this time no infectious symptoms reported. Please note that above description of symptoms, in this electronic medical record under categorization of recalled from ER triage doctor by RN are reflective of an initial nursing assessment, however, is not reflective of my full history and physical exam that was personally taken and clarified. Consequentially, this preceding description of symptoms, which may include the patient's categorized chief complaint in the EMR, do not reflect my personal clinical impression, and the ultimate description of history of present illness and patient stated complaints should be deferred to this section of the note. Unless stated otherwise or congruent with this section of the note, additional signs, symptoms, or incongruence should be interpreted as inaccurate with my clinical impression. Related Data Home Medications ?Medication ?Instructions ?Recorded ?Confirmed potassium chloride 10 mEq meq PO 08/06/24 02/05/25 capsule,extended release trospium 60 mg capsule,extended mg PO 08/06/24 02/05/25 release 24 hr Previous Rx's ?Medication ?Instructions ?Recorded oxybutynin chloride 10 mg 10 mg PO DAILY 90 days #180 tabs 09/17/24 tablet,extended release 24 hr colestipol 1 gram tablet See Rx Instructions .Route 11/06/24 .COMPLEX #60 tabs hydralazine 50 mg tablet See Rx Instructions .Route 11/06/24 .COMPLEX #60 tabs tramadol 50 mg tablet 50 mg PO Q8H PRN Pain #30 tabs 11/27/24 donepezil 10 mg tablet 10 mg PO HS #30 tabs 12/05/24 losartan 100 See Rx Instructions .Route 02/27/25 mg-hydrochlorothiazide 25 mg tablet .COMPLEX #30 tabs metoprolol succinate 100 mg See Rx Instructions .Route 02/27/25 tablet,extended release 24 hr .COMPLEX #90 tabs lansoprazole 30 mg capsule,delayed See Rx Instructions .Route 03/27/25 release .COMPLEX #60 caps memantine 14 mg capsule 14 mg PO DAILY #30 ea 03/27/25 sprinkle,extended release 24hr metformin 500 mg tablet See Rx Instructions .Route 03/27/25 .COMPLEX #30 tabs Allergies Allergy/AdvReac Type Severity Reaction Status Date / Time No Known Allergies Allergy Verified 02/05/25 09:55 [facility] Disclaimer: The information contained in this section may have been updated after the patient was seen, as this information can be updated by other users. Medical History Chest pain Hand pain, right Gassiness Hernia, hiatal Abdominal pain Paresthesia of both lower extremities Incontinence of urine History of cardiac dysrhythmia Sebaceous cyst Constipation Impaired cognition admits memory issues Arthritis of right hip Type 2 diabetes mellitus Hyperglycemia Light-headed feeling Hyperlipidemia History of sinusitis Anxiety Snoring Insomnia Deviated septum Closed displaced fracture of nasal bone Degenerative joint disease of both hips Infected sebaceous cyst History of prostate cancer Hx of fracture of nose Bronchitis Episodes of formed visual hallucinations History of pneumonia History of COVID-19 Prostate cancer Hypertension COVID-19 Surgical History Status post right hip replacement Hx of cataract surgery Status post left hip replacement History of prostatectomy History of hemorrhoidectomy History of prostatectomy History of cholecystectomy Family History Other Cancer Diabetes Heart attack Hyperlipidemia Hypertension Social History Smoking Status: Former smoker tobacco type: cigarettes alcohol intake: current alcohol intake frequency: holidays/special occasions only counseling provided: provider counseling substance use type: denies use current occupational status: retired Travel in the last 8 weeks?: None household members: spouse housing: house current occupation: [employer] current occupational exposures/hazards: No caffeine: Yes Have you lived/traveled outside [place] in past 30 days?: No Contact w/someone who lives/traveled outside US past 30 days?: No Exposure to someone with infectious disease in past 14 days?: No Do you have a fever (greater than 100.4 F or 38 C)?: No Have you tested positive for COVID-19?: No Exposed to someone with COVID-19 in past 14 days?: No Do you have a sore throat?: No Do you have a cough?: No Do you have any weakness?: No Do you have any diarrhea?: No Are you experiencing any unusual bleeding?: No Do you have any muscle aches/pain?: No Do you have any abdominal pain?: No Are you experiencing loss of taste or smell?: No Other Medical History Have you received the Flu Vaccine for this season: Yes Have you received the Pneumonia Vaccine: Yes ROS Obtained: Yes Systems reviewed as appropriate & no additional complaints except as documented Physical Exam General General appearance: alert and in no apparent distress Head Head exam: atraumatic and normocephalic Eye Eye exam: Present PERRL and EOMI ENT ENT exam: Present mucous membranes moist Neck Neck exam: Present normal inspection Chest Chest inspection: Present normal inspection and symmetric chest wall rise Respiratory Respiratory exam: Present normal lung sounds bilaterally; Absent respiratory distress Cardiovascular Cardiovascular exam: Present regular rate and normal rhythm Abdominal Exam Abdominal exam: Present soft; Absent tenderness Extremities Exam Extremities exam: Present normal inspection Neurological Exam Neurological exam: Present alert Psychiatric Psychiatric exam: Present normal affect Skin Skin exam: Present warm and dry HEART Score HEART Score HEART Score assessment performed?: Yes History (anamnesis): Highly suspicious ECG: Non-specific disturbance Age: >65 years Risk factors: 1-2 risk factors Troponin: </= normal limit HEART Score: 6 Critical Care Critical Care Time Critical Care Time: No Medical Decision Making Donte Inquiry Pt receiving controlled substance: No Vital Signs Vital Signs: 04/08/25 09:02 04/08/25 09:22 04/08/25 09:35 Temperature 98 F Temperature Source Oral Pulse Rate 62 62 Pulse Rate [Apical] 59 L Respiratory Rate 18 16 16 Blood Pressure 168/88 H 136/93 H Blood Pressure [Right Arm] 180/85 H Blood Pressure Mean 114 104 Blood Pressure Mean [Right Arm] 116 Blood Pressure Source [Right Arm] Automatic Cuff Blood Pressure Position [Right Arm] Supine 02 Sat by Pulse Oximetry 97 96 97 Oxygen Delivery Method Room Air 04/08/25 09:45 Temperature Temperature Source Pulse Rate 57 L Pulse Rate [Apical] Respiratory Rate 16 Blood Pressure 168/82 H Blood Pressure [Right Arm] Blood Pressure Mean 110 Blood Pressure Mean [Right Arm] Blood Pressure Source [Right Arm] Blood Pressure Position [Right Arm] 02 Sat by Pulse Oximetry 97 Oxygen Delivery Method Lab Data Labs: Lab Results 04/08/25 08:50: WBC 5.7, RBC 4.51 L, Hgb 13.7 L, Hct 41.2 L, MCV 91.4, MCH 30.4, MCHC 33.3, RDW 14.6, Plt Count 254, MPV 9.8, Neut % (Auto) 51.3, Lymph % (Auto) 32.5, Hardy % (Auto) 12.1 H, Eos % (Auto) 2.6, Baso % (Auto) 1.1, Neut # (Auto) 2.9, Lymph # (Auto) 1.9, Hardy # (Auto) 0.7, Eos # (Auto) 0.2, Baso # (Auto) 0.1, D-Dimer 0.45, Sodium 133 L, Potassium 4.2, Chloride 95 L, Carbon Dioxide 28, Anion Gap 14.2, BUN 13, Creatinine 0.80, Estimated Creat Clear 91, Estimated GFR 94, Est GFR ( Amer) 114, Glucose 114 H, Calcium 9.3, Total Bilirubin 0.8, AST 30, ALT 15, Alkaline Phosphatase 49, Troponin I < 0.01, Total Protein 7.9, Albumin 4.8, Globulin 3.1, Albumin/Globulin Ratio 1.5, Lipase 45, HIV Ag/Ab Combo Qual Negative 04/08/25 08:50 04/08/25 08:50 Response Orders (Tests/Meds): ED MEDICATIONS Generic Name Dose Route Start Last Admin Trade Name Freq PRN Reason Stop Dose Admin Nitroglycerin 0.4 mg 04/08/25 08:54 Nitroglycerin 0.4mg Sl Tablet SL 05/08/25 08:53 Q5MINP PRN Chest Pain Discontinued Medications Generic Name Dose Route Start Last Admin Trade Name Freq PRN Reason Stop Dose Admin Aspirin 324 mg 04/08/25 08:54 04/08/25 09:13 Aspirin 81mg Chewable Tablet PO 04/08/25 08:55 324 mg ONCE ONE Administration Morphine Sulfate 4 mg 04/08/25 08:54 04/08/25 09:13 Morphine 4mg/Ml Syringe IV 04/08/25 08:55 4 mg ONCE ONE Administration ORDERS Category Date Time Status CXR 2 view (NOT portable) [XR chest 2V] Stat Exams 04/08/25 08:54 Completed CBC w/Auto Diff [Complete Blood Count Auto Diff] Stat Lab 04/08/25 08:50 Completed CMP [Comprehensive Metabolic Panel] Stat Lab 04/08/25 08:50 Completed D-Dimer Stat Lab 04/08/25 08:50 Completed HIV Combo Routine Lab 04/08/25 08:50 Completed Hepatitis C Ab Qual. W/ RFX Routine Lab 04/08/25 08:50 Received Lipase Stat Lab 04/08/25 08:50 Completed Trop I [Troponin I] Stat Lab 04/08/25 08:50 Completed Troponin I Q3H Lab 04/08/25 12:00 Ordered Troponin I Q3H Lab 04/08/25 15:00 Ordered ECG Data Tracing #1: ECG Narrative: Independently interpreted by me rate is 64, rhythm is irregular, sinus rhythm with frequent PVCs, QTc 415, no ST elevation in anatomical contiguous leads. MDM Narrative Medical Decision Narrative: In summary patient is a 74-year-old male past medical history [place] above presents emerged part for evaluation of chest pain. Patient is hemodynamically stable nontoxic-appearing upon arrival, afebrile. He is hypertensive 180/85. He has taken his blood pressure medications this morning which consist of losartan and metoprolol. Differential diagnosis includes ACS, noncardiac chest pain, among others. Workup be conducted with hematologic labs to be chest x-ray, D-dimer. Initial hematologic labs reviewed by me no significant leukocytosis no transfusable anemia stable mild hyponatremia no VIVIENNE or critical electrolyte abnormality. Chest x-ray informally interpreted by me, there appears to be a calcific aorta no dense lobar opacities, hiatal hernia which compared to chest x-ray from 2022 appears similar. D-dimer excludes low risk aortic dissection and pulmonary embolism. Initial troponin undetectably low. Given patient's age and cardiovascular risk factors cardiology evaluation is warranted. Case was discussed with Dr. Prince and he agrees. The case was discussed with hospital medicine regarding management they will admit the patient to their service for continued evaluation at this time.
[2025-04-08 09:40] LABS: Troponin I < 0.01 ng/ml (0.00-0.034)
[2025-04-08 10:15] LABS: D-Dimer 0.45 ug/mL (0.0-0.5)
--- NOTE | 2025-04-08 10:24 | PC.NURSE ---
on phone with jon
--- NOTE | 2025-04-08 10:24 | PC.NURSE ---
md calling hospitalist for possible admission
[2025-04-08 10:33] LABS: HIV Combo NEGATIVE (Negative)
--- NOTE | 2025-04-08 10:38 | PC.NURSE ---
I called per the cardiology clinic to request a provider come consult on the pt.
[2025-04-08 10:41] LABS: Hepatitis C Ab Qual. W/ RFX NEGATIVE (Negative)
--- NOTE | 2025-04-08 10:48 | PC.NURSE ---
spoke with who accepted the admission.
--- NOTE | 2025-04-08 10:48 | PC.NURSE ---
I notified of the need for a bed to admit.
--- NOTE | 2025-04-08 10:55 | PC.NURSE ---
gave pt water per DR Loza
--- NOTE | 2025-04-08 10:56 | IR_ITS ---
APPROVED REPORT Patient Location: Inpatient [employer]: HAVEN Zamarripa RT (R) PROCEDURES Left heart catheterization Left ventriculogram Selective coronary angiogram INDICATION Unstable angina, Excessive ventricular ectopy/PVCs Informed consent was obtained prior to the procedure. COMPLICATIONS None Estimated Blood Loss: Less than 10 mls TECHNIQUE One percent lidocaine used to anesthetize the right anterior aspect of the wrist. The right radial artery was accessed via the Seldinger technique. A 6 Urdu sheath was placed in the right radial artery. 2.5 mg of Verapamil, 800 mcg of nitroglycerin, 1mg Lidocaine and 5000 U Heparin were given through the arterial sheath. The JL3 catheter was also used to perform left heart catheterization, left ventriculogram and selective coronary angiogram. At the end of the procedure the sheath was removed good hemostasis was achieved using Traclet band, patient was transferred to the postop holding area in stable condition. 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 Evaluation of noncardiac chest pain 2. Holter monitor to better assess frequency and burden of PVCs 3. LDL less than 55 achieved with high intensity statin 4. Official echocardiogram 5. Risk factor modification Electronically signed by : Jung Prince MD 04/08/2025 12:15:55
--- NOTE | 2025-04-08 11:00 | CA_ITS ---
APPROVED REPORT EXAM: Comprehensive 2D, Doppler, and color-flow Echocardiogram College Administrator: Bre Colón RVT Ht: 6 ft 0 in Wt: 225lbs BSA: 2.24 BP: 168/82 mmHg Indications: CHEST PAIN,AFIB 2D Dimensions LA Volume 72.40 mL LA Volume Index 32.32 mL/m2 (M/F) 16-34 M-Mode Dimensions RVDd 2.54 cm (0.9-2.6) LA Diam 5.21 cm (1.9-4.0) LVDd 5.61 cm (3.5-5.7) LVDs 4.13 cm (3.5-5.7) IVSd 0.85 cm (0.6-1.1) PWd 0.35 cm (0.6-1.1) EF (Teich) 51.10% FS 26.40% EDV (Teich) 154.30 mL TAPSE 2.12 (<1.7) ESV (Teich) 75.50 mL LV Diastology E Decel Time 187 (160-240 msec) E/A Ratio 1.8 Aortic Valve JORDYN Index 1.34 cm2/m2 AoV Peak Errol. 116.0 (50-130 cm/s) AO Peak GR. 5.40 mmHg AO Mean GR. 3.00 (<5 mmHg) AO VTI 24.2 (18-25 cm) JORDYN (VTI) 3.07 (2.5-4.5 cm2) Mitral Valve MV E Max Errol. 86.0 (40-130 cm/s) MV A Velocity 49.0 (40-130 cm/s) E/A Ratio 1.76 MV PHT 55.0 ms Pulmonary Valve PV Peak Velocity 59.0 (50-150 cm/s) Tricuspid Valve TR P. Velocity 260.00 cm/s RAP Estimate 10.00 mmHg RVSP 37.10 mmHg Left Ventricle The left ventricle is normal size. The left ventricular systolic function is normal. The left ventricular ejection fraction is within the normal range. There is increased LV wall thickness. There is normal LV segmental wall motion. Diastolic function is indeterminate. LVEF is 55%. Right Ventricle The right ventricle is normal size. The right ventricular systolic function is normal. Atria The left atrium is mildly dilated. The right atrium is mildly dilated. There is no Doppler evidence of interatrial shunt. Aortic Valve Aortic valve is mildly thickened. There is no aortic valvular stenosis. Trace aortic regurgitation. Mitral Valve The mitral valve leaflets are mildly thickened. No evidence of mitral valve stenosis. Mild mitral regurgitation. Tricuspid Valve Tricuspid valve is grossly normal in structure and function. Mild tricuspid regurgitation. RVSP is 25-30 mmHg. Pulmonic Valve The pulmonary valve is normal in structure. Mild pulmonic regurgitation. Great Vessels The aortic root is normal in size. IVC is normal in size and collapses >50% with inspiration. Pericardium There is no pericardial effusion. Other Information Study Quality: Fair Conclusion Normal biventricular systolic function. Mild MR, mild TR, mild PI. Electronically signed by : Jie Parham MD 04/09/2025 00:13:18
--- NOTE | 2025-04-08 11:00 | EXP.CARD.CON ---
History of Present Illness History of Present Illness Consult date: 04/08/25 Requesting physician: Zachary Inman Consult reason: chest pain Chief complaint: chest pain History of present illness: Mr. Simmons is a 74-year-old white male with a past medical history of A-fib status post ablation by Dr. Romo 10 years ago, hypertension and hyperlipidemia who presented to emergency department with complaints of left-sided chest pain x 3 days. He reports the pain does not radiate and does not have any associated shortness of breath. reports patient has had an increased cough for the past few months. Patient does report that pain has been constant for 3 days. Upon upon presentation to ER EKG shows sinus rhythm with frequent PVCs at a rate of 64. D-dimer is negative. Creatinine is normal at 0.8. Initial troponin is less than 0.01. Chest x-ray shows no acute cardiopulmonary process. ER doctor has spoken with Dr. Prince who plans to proceed with taking patient to the [facility] for evaluation for coronary artery disease. Echocardiogram has been ordered. Patient is awaiting [facility]. [facility] Disclaimer: The information contained in this section may have been updated after the patient was seen, as this information can be updated by other users. Medical History Chest pain Hand pain, right Gassiness Hernia, hiatal Abdominal pain Paresthesia of both lower extremities Incontinence of urine History of cardiac dysrhythmia Sebaceous cyst Constipation Impaired cognition admits memory issues Arthritis of right hip Type 2 diabetes mellitus Hyperglycemia Light-headed feeling Hyperlipidemia History of sinusitis Anxiety Snoring Insomnia Deviated septum Closed displaced fracture of nasal bone Degenerative joint disease of both hips Infected sebaceous cyst History of prostate cancer Hx of fracture of nose Bronchitis Episodes of formed visual hallucinations History of pneumonia History of COVID-19 Prostate cancer Hypertension COVID-19 Surgical History Status post right hip replacement Hx of cataract surgery Status post left hip replacement History of prostatectomy History of hemorrhoidectomy History of prostatectomy History of cholecystectomy Family History Other Cancer Diabetes Heart attack Hyperlipidemia Hypertension Social History (Updated 04/08/25 @ 13:02 by Cristina Hatch RN) Smoking Status: Former smoker tobacco type: cigarettes alcohol intake: never counseling provided: provider counseling substance use type: denies use current occupational status: retired Travel in the last 8 weeks?: None household members: spouse housing: house current occupation: [employer] current occupational exposures/hazards: No caffeine: Yes Review of Systems Review of Systems Review of systems:: pertinent systems reviewed and negative unless documented below Constitutional Constitutional: Reports system reviewed and no additional complaints, except as documented *Cardiovascular Cardiovascular: Reports system reviewed and no additional complaints, except as documented and Reports chest pain at rest *Respiratory Respiratory: Reports system reviewed and no additional complaints, except as documented *Gastrointestinal Gastrointestinal: Reports system reviewed and no additional complaints, except as documented *Neurologic Neurologic: Reports system reviewed and no additional complaints, except as documented and Denies confusion Psychiatric Psychiatric: Reports system reviewed and no additional complaints, except as documented and Denies confusion Exam Data for Last 24 hours Vital signs and Labs for Last 24 Hours: Temp Pulse Resp BP Pulse Ox O2 Del Method 98 F 57 L 16 160/69 H 96 Room Air 04/08/25 09:02 04/08/25 10:46 04/08/25 10:46 04/08/25 10:46 04/08/25 10:46 04/08/25 09:02 Laboratory Results - last 24 hr 04/08/25 08:50: WBC 5.7, RBC 4.51 L, Hgb 13.7 L, Hct 41.2 L, MCV 91.4, MCH 30.4, MCHC 33.3, RDW 14.6, Plt Count 254, MPV 9.8, Neut % (Auto) 51.3, Lymph % (Auto) 32.5, [place] % (Auto) 12.1 H, Eos % (Auto) 2.6, Baso % (Auto) 1.1, Neut # (Auto) 2.9, Lymph # (Auto) 1.9, [place] # (Auto) 0.7, Eos # (Auto) 0.2, Baso # (Auto) 0.1, D-Dimer 0.45, Sodium 133 L, Potassium 4.2, Chloride 95 L, Carbon Dioxide 28, Anion Gap 14.2, BUN 13, Creatinine 0.80, Estimated Creat Clear 91, Estimated GFR 94, Est GFR ( Amer) 114, Glucose 114 H, Calcium 9.3, Total Bilirubin 0.8, AST 30, ALT 15, Alkaline Phosphatase 49, Troponin I < 0.01, Total Protein 7.9, Albumin 4.8, Globulin 3.1, Albumin/Globulin Ratio 1.5, Lipase 45, HCV Ab NABIL w/Rflx PCR Qn Negative, HIV Ag/Ab Combo Qual Negative I & O for Last 24 hours: Intake & Output 04/05/25 04/06/25 04/07/25 04/08/25 23:59 23:59 23:59 23:59 Weight 225 lb Constitutional Constitutional: no acute distress *Routine Respiratory Exam Respiratory: Present CTA bilaterally and symmetric chest movement *Routine Cardiovascular Exam Cardiovascular: Present RRR, Normal S1 and Normal S2 *Routine Abdominal Exam Abdominal: Present soft and normoactive bowel sounds; Absent tenderness *Routine Extremities Exam Extremities: Present full ROM and normal capillary refill; Absent edema *Routine Skin Exam Skin: Present intact, dry and warm Detailed Neck Exam: Thyroids Thyroid: Absent bruit Meds Home Medications and Allergies Home Medications ?Medication ?Instructions ?Recorded ?Confirmed ?Type trospium 60 mg capsule,extended 60 mg PO DAILY 08/06/24 04/08/25 History release 24 hr oxybutynin chloride 10 mg 10 mg PO DAILY 90 days #180 tabs 09/17/24 04/08/25 Rx tablet,extended release 24 hr donepezil 10 mg tablet 10 mg PO HS #30 tabs 12/05/24 04/08/25 Rx memantine 14 mg capsule 14 mg PO DAILY #30 ea 03/27/25 04/08/25 Rx sprinkle,extended release 24hr colestipol 1 gram tablet 1 g PO DAILY 04/08/25 04/08/25 History hydralazine 50 mg tablet 50 mg PO BID Anxiety 04/08/25 04/08/25 History lansoprazole 30 mg capsule,delayed 30 mg PO BID 04/08/25 04/08/25 History release losartan 100 1 tab PO DAILY 100/25mg 04/08/25 04/08/25 History mg-hydrochlorothiazide 25 mg tablet metformin 500 mg tablet 500 mg PO DAILY 04/08/25 04/08/25 History metoprolol succinate 100 mg 100 mg PO DAILY 04/08/25 04/08/25 History tablet,extended release 24 hr New Prescriptions to Start Prescriptions: Allergies Allergy/AdvReac Type Severity Reaction Status Date / Time No Known Allergies Allergy Verified 02/05/25 09:55 Assessment and Plan *Assessment and plan (1) Angina pectoris, unstable: Status: Acute Category: Medical Code(s): I20.0 - Unstable angina Plan Unstable angina History of A-fib status post ablation Frequent PVCs noted on EKG Persistent left-sided chest pain x 3 days Troponin negative D-Dimer negative Initial EKG shows sinus rhythm with frequent PVCs at a rate of 64 Patient will proceed for left heart catheterization to further evaluate unstable angina Prelim echos shows normal EF. Hypertension Continue metoprolol succinate 100 mg p.o. daily and losartan hydrochlorothiazide 100/25 mg p.o. daily Hyperlipidemia LDL goal less than 100, start atorvastatin 40 mg p.o. daily CV summary 04/08/2025: Left heart catheterization echo pending. Addendum: Left heart catheterization shows mild to moderate disease in the RCA with a normal ejection fraction and normal LVEDP. Preliminary echo report shows a normal ejection fraction. Official read is pending. Recommend patient be DC'd home in a 2-week event monitor due to frequent PVCs noted on EKG and increase metoprolol succinate to 150 mg p.o. daily. Patient needs follow-up in cardiology clinic and will 1 to 2 weeks for reevaluation.
--- NOTE | 2025-04-08 11:01 | PC.NURSE ---
Dr. Loza speaking w/ Dr. Inman @ this time
--- NOTE | 2025-04-08 11:04 | PC.NURSE ---
maritza at bedside
--- NOTE | 2025-04-08 11:06 | PC.NURSE ---
Spoke w/ Content Curator about bed assignment
--- NOTE | 2025-04-08 11:17 | PC.NURSE ---
Report called to Kimberly Eisenberg RN
--- NOTE | 2025-04-08 11:24 | PC.NURSE ---
Consent for [facility] signed. Pt being prepped by tech and placed in gown.
--- NOTE | 2025-04-08 11:34 | PC.NURSE ---
pt is shaved and prepped for cath lab nurse, RN notified
--- NOTE | 2025-04-08 11:38 | PC.NURSE ---
pt being taken to construction laborer at this time
[2025-04-08] MEDS: HEPARIN 1,000 UNITS/500ML NS (CATH LAB) 3000 UNIT IV (11:54)
[2025-04-08] MEDS: NITROGLYCERIN 800MCG/8ML SYR (CATH LAB) 800 MCG IA (11:54)
[2025-04-08] MEDS: HEPARIN 1,000 UNITS/ML 10ML VIAL (CATH LAB) 5000 UNIT IV (11:54)
[2025-04-08] MEDS: diphenhydrAMINE 50MG/ML VIAL 50 MG IV (11:54)
[2025-04-08] MEDS: LIDOCAINE 1% 10ML MDV 10 ML IJ (11:54)
[2025-04-08] MEDS: VERAPAMIL 2.5MG/ML 2ML VIAL 2.5 MG IV (11:55)
[2025-04-08] MEDS: 0.9 % SODIUM CHLORIDE 500 ML 25 ML IV (11:55)
[2025-04-08] MEDS: MIDAZOLAM HCL 1MG/ML 5ML VIAL 1 MG IV (12:16)
[2025-04-08] MEDS: FENTANYL 100MCG/2ML VIAL 50 MCG IV (12:17)
[2025-04-08] MEDS: IOPAMIDOL-370 (76%);100ML BOTTLE 70 ML IV (13:49)
--- NOTE | 2025-04-08 15:37 | P.HPDS_ITS ---
<Statement entered by Zachary Inman MD - 04/08/25 17:08> Personally reviewed patient chart. Agree with exam findings and care plan as documented. General Admission date:: 04/08/25 *Admission Date: 04/08/25 *Chief complaint: Chest pain *History of present illness: Mr. Garcia is a 74-year-old male with a history of type 2 diabetes, BPH, dementia, hypertension, GERD, prostate cancer, DDD, anxiety, osteoarthritis, and A-fib. Patient did have a cardiac ablation approximately [address] Romo. He presented to the emergency department today with left-sided chest pain x 3 days. He reported that it did not radiate and and denied shortness of breath. EKG was obtained in the emergency room and showed normal sinus rhythm with a rate of 64 bpm and frequent PVCs. Initial troponins were negative, no ST elevation noted on EKG, chest x-ray showed no acute findings, D-dimer negative. Cardiology was consulted and Dr. Prince recommended a left heart cath. Patient was agreeable and plans were made to take him to the [facility] T[facility] today. [facility] Disclaimer: The information contained in this section may have been updated after the patient was seen, as this information can be updated by other users. Medical History Chest pain Hand pain, right Gassiness Hernia, hiatal Abdominal pain Paresthesia of both lower extremities Incontinence of urine History of cardiac dysrhythmia Sebaceous cyst Constipation Impaired cognition admits memory issues Arthritis of right hip Type 2 diabetes mellitus Hyperglycemia Light-headed feeling Hyperlipidemia History of sinusitis Anxiety Snoring Insomnia Deviated septum Closed displaced fracture of nasal bone Degenerative joint disease of both hips Infected sebaceous cyst History of prostate cancer Hx of fracture of nose Bronchitis Episodes of formed visual hallucinations History of pneumonia History of COVID-19 Prostate cancer Hypertension COVID-19 Surgical History Status post right hip replacement Hx of cataract surgery Status post left hip replacement History of prostatectomy History of hemorrhoidectomy History of prostatectomy History of cholecystectomy Family History Other Cancer Diabetes Heart attack Hyperlipidemia Hypertension Social History (Updated 04/08/25 @ 13:02 by Cristina Hatch RN) Smoking Status: Former smoker tobacco type: cigarettes alcohol intake: never counseling provided: provider counseling substance use type: denies use current occupational status: retired Travel in the last 8 weeks?: None household members: spouse housing: house current occupation: formerly [employer] current occupational exposures/hazards: No caffeine: Yes Other Medical History Have you received the Flu Vaccine for this season: No Have you received the Pneumonia Vaccine: Yes Review of Systems Review of Systems Review of systems:: pertinent systems reviewed and negative unless documented below Constitutional Constitutional: Reports system reviewed and no additional complaints, except as documented *Cardiovascular Cardiovascular: Reports system reviewed and no additional complaints, except as documented and Reports chest pain at rest *Respiratory Respiratory: Reports system reviewed and no additional complaints, except as documented *Gastrointestinal Gastrointestinal: Reports system reviewed and no additional complaints, except as documented *Neurologic Neurologic: Reports system reviewed and no additional complaints, except as documented and Denies confusion Psychiatric Psychiatric: Denies confusion Exam Data for Last 24 hours Vital signs and Labs for Last 24 Hours: Temp Pulse Resp BP Pulse Ox O2 Del Method 98 F 48 L 16 120/65 90 L Room Air 04/08/25 11:38 04/08/25 14:00 04/08/25 13:45 04/08/25 13:45 04/08/25 13:45 04/08/25 13:45 Laboratory Results - last 24 hr 04/08/25 08:50: WBC 5.7, RBC 4.51 L, Hgb 13.7 L, Hct 41.2 L, MCV 91.4, MCH 30.4, MCHC 33.3, RDW 14.6, Plt Count 254, MPV 9.8, Neut % (Auto) 51.3, Lymph % (Auto) 32.5, [place] % (Auto) 12.1 H, Eos % (Auto) 2.6, Baso % (Auto) 1.1, Neut # (Auto) 2.9, Lymph # (Auto) 1.9, [place] # (Auto) 0.7, Eos # (Auto) 0.2, Baso # (Auto) 0.1, D-Dimer 0.45, Sodium 133 L, Potassium 4.2, Chloride 95 L, Carbon Dioxide 28, Anion Gap 14.2, BUN 13, Creatinine 0.80, Estimated Creat Clear 91, Estimated GFR 94, Est GFR ( Amer) 114, Glucose 114 H, Calcium 9.3, Total Bilirubin 0.8, AST 30, ALT 15, Alkaline Phosphatase 49, Troponin I < 0.01, Total Protein 7.9, Albumin 4.8, Globulin 3.1, Albumin/Globulin Ratio 1.5, Lipase 45, HCV Ab NABIL w/Rflx PCR Qn Negative, HIV Ag/Ab Combo Qual Negative I & O for Last 24 hours: Intake & Output 04/05/25 04/06/25 04/07/25 04/08/25 23:59 23:59 23:59 23:59 Weight 102.058 kg Constitutional Constitutional: no acute distress *Routine HEENT Exam Head: Present normocephalic Eye: Present EOMI ENT: Present mucous membranes moist *Routine Neck Exam Neck: Present supple and full ROM; Absent JVD *Routine Respiratory Exam Respiratory: Present CTA bilaterally, normal respiratory effort, able to speak in complete sentences and symmetric chest movement *Routine Cardiovascular Exam Cardiovascular: Present bradycardia and irregularly irregular *Routine Abdominal Exam Abdominal: Present soft and normoactive bowel sounds; Absent tenderness *Routine Rectal Exam Rectal:: deferred *Routine Genitalia Exam Genitalia:: deferred *Routine Extremities Exam Extremities: Present full ROM, pulses intact and normal capillary refill; Absent edema *Routine Skin Exam Skin: Present intact and dry *Routine Neurological Exam Neurological: Present alert, oriented X3 and normal speech Meds Home Medications and Allergies Home Medications ?Medication ?Instructions ?Recorded ?Confirmed ?Type trospium 60 mg capsule,extended 60 mg PO DAILY 4 04/08/25 History release 24 hr oxybutynin chloride 10 mg 10 mg PO DAILY 90 days #180 tabs 09/17/24 04/08/25 Rx tablet,extended release 24 hr donepezil 10 mg tablet 10 mg PO HS #30 tabs 5 04/08/25 Rx memantine 14 mg capsule 14 mg PO DAILY #30 ea 04/08/25 Rx sprinkle,extended release 24hr atorvastatin 40 mg tablet (Lipitor) 40 mg PO DAILY #30 tabs 04/08/25 Rx colestipol 1 gram tablet 1 g PO DAILY 04/08/25 History hydralazine 50 mg tablet 50 mg PO BID Anxiety 5 04/08/25 History lansoprazole 30 mg capsule,delayed 30 mg PO BID 04/08/25 History release losartan 100 1 tab PO DAILY 100/25mg 03/1204/08/25 History mg-hydrochlorothiazide 25 mg tablet metformin 500 mg tablet 500 mg PO DAILY 04/08/25 History metoprolol succinate 100 mg 150 mg (1.5 x 100 mg) PO D AILY #45 04/08/25 Rx tablet,extended release 24 hr tabs (Toprol XL) New Prescriptions to Start Prescriptions: atorvastatin [Lipitor] Fe Canales metoprolol succinate [Toprol XL] Fe Canales Allergies Allergy/AdvReac Type Severity Reaction Status Date / Time No Known Allergies Allergy Verified 02/05/25 09:55 Hospital Course Hospital Course Hospital Course: Mr. Simmons is a 74-year-old male who presented to the emergency department today with chest pain x 3 days. Patient states chest pain is at rest, denies shortness of breath or chest pain radiation. EKG obtained NSR and notable for frequent PVCs. Patient taken to the [facility] for left heart cath. After discussion with the ER physician and cardiology, I decided to admit patient for medical management and further monitoring. #Unstable angina #History of A-fib, post ablation #Frequent PVCs ? Patient presented with left-sided chest pain x 3 days, taken to the [facility] T[facility]. Left heart cath showed moderate disease in the RCA with normal EF and normal LVEDP. Patient denies chest pain at this time. Patient's heart rate is irregular, patient denies shortness of breath, edema in extremities. ?I personally reviewed his EKG, sinus rhythm with frequent PVCs noted. ?Echo currently pending, prelim shows normal ejection fraction. ?CBC and CMP unremarkable, slight hyponatremia of 133. ?Per cardiology recommendations to wear a 2-week event monitor to monitor for PV Cs and rhythm changes. ?Per cardiology increase metoprolol to 150 mg daily. ?Plan to follow-up with cards in 1 to 2 weeks. #Hypertension #Hyperlipidemia ? Continue losartan with HCTZ 100/25 mg p.o. daily ?Start atorvastatin 40 mg p.o. daily, LDL goal less than 100. ?Lipid panel pending. Total time spent on discharge 32 minutes in counseling, documentation, chart review, and direct care with patient. Results Data Completed and Pending Labs on day of discharge: Labs from last 24 hours 04/08/25 08:50 WBC 5.7 RBC 4.51 L Hgb 13.7 L Hct 41.2 L MCV 91.4 MCH 30.4 MCHC 33.3 RDW 14.6 Plt Count 254 MPV 9.8 Neut % (Auto) 51.3 Lymph % (Auto) 32.5 [place] % (Auto) 12.1 H Eos % (Auto) 2.6 Baso % (Auto) 1.1 Neut # (Auto) 2.9 Lymph # (Auto) 1.9 [place] # (Auto) 0.7 Eos # (Auto) 0.2 Baso # (Auto) 0.1 D-Dimer 0.45 Sodium 133 L Potassium 4.2 Chloride 95 L Carbon Dioxide 28 Anion Gap 14.2 BUN 13 Creatinine 0.80 Estimated Creat Clear 91 Estimated GFR 94 Est GFR ( Amer) 114 Glucose 114 H Calcium 9.3 Total Bilirubin 0.8 AST 30 ALT 15 Alkaline Phosphatase 49 Troponin I < 0.01 Total Protein 7.9 Albumin 4.8 Globulin 3.1 Albumin/Globulin Ratio 1.5 Lipase 45 HCV Ab NABIL w/Rflx PCR Qn Negative HIV Ag/Ab Combo Qual Negative DS: Diagnosis Discharge Diagnosis (1) Angina pectoris, unstable: Status: Acute Code(s): I20.0 - Unstable angina (2) Status post left heart catheterization: Status: Acute Code(s): Z98.890 - Other specified postprocedural states (3) Hypertension: Status: Acute Code(s): I10 - Essential (primary) hypertension (4) Frequent PVCs: Status: Acute Code(s): I49.3 - Ventricular premature depolarization Discharge Plan Disposition Patient Disposition: Home, Self-Care Condition: Fair Follow up Plan Follow up with: Renetta oCle APRN [Nurse Practitioner, Cardiology] - 04/22/25 10:00 am Michelle Villanueva MD [Staff Physician, Medical] - 04/16/25 11:00 am Prescriptions/Medication Reconciliation: New metoprolol succinate [Toprol XL] 100 mg tablet extended release 24 hr 150 mg PO DAILY Qty: 45 1RF atorvastatin [Lipitor] 40 mg tablet 40 mg PO DAILY Qty: 30 0RF Continued oxybutynin chloride 10 mg tablet extended release 24hr 10 mg PO DAILY 90 Days Qty: 180 1RF trospium 60 mg capsule,extended release 24hr 60 mg PO DAILY Patient Comments: TAKE 1 CAPSULE (60 MG) BY MOUTH 1 (ONE) TIME EACH DAY. donepezil 10 mg tablet 10 mg PO HS Qty: 30 5RF memantine 14 mg capsule,sprinkle,ER 24hr 14 mg PO DAILY Qty: 30 2RF metformin 500 mg tablet 500 mg PO DAILY losartan-hydrochlorothiazide 100-25 mg tablet 1 tab PO DAILY lansoprazole 30 mg capsule,delayed release(DR/EC) 30 mg PO BID hydralazine 50 mg tablet 50 mg PO BID colestipol 1 gram tablet 1 g PO DAILY Discontinued metoprolol succinate 100 mg tablet extended release 24 hr 100 mg PO DAILY Problem Reconciliation Problems Reviewed?: Yes Patient Discharge Instructions ACTIVITY: Continue current activity DIET: continue same diet Patient Instructions: Angina, Cardiac Catheterization, Surgical Site Infection, Cardiology Catheterization Patient / Family Discharge Instructions, Post TransRadial Cath Discharge Instructions Print Language: Malian Providers Primary Care Provider: Provider,Referral Admit Provider: Jung Prince Attending Provider: Zachary Inman
[2025-04-08 16:37] LABS: Chol/HDL Ratio 4.4 (1-3.5); Cholesterol 181 mg/dl (140-200); HDL Cholesterol 41 mg/dl (40-60); Triglycerides 256 mg/dl (30-150); VLDL Cholesterol 51 mg/dL (0-40)
--- NOTE | 2025-04-08 19:51 | PC.NURSE ---
Patient left floor with staff for home at 19:31.
--- NOTE | 2025-04-09 10:26 | SW/DCPLANNER ---
Spoke with patient on the phone. Patient stated that he is doing good. Patient stated that he is aware of his upcoming appointments. Patient stated that he was able to get his new medicine picked up. Patient stated that he has no concerns or questions at this time. Violeta David
== END 2025-04-08 19:31 | disposition home or self-care (01) ==
LOC: ER 09:09 → 2ND 11:00 → CATHLAB 12:02 → 2ND 12:34
PROVIDERS: Admitting Provider Internal Medicine; Emergency Provider Emergency Medicine; Visit Provider Internal Medicine Adolescent Medicine
PROC: 4A023N7 Measurement of Cardiac Sampling and Pressure, Left Heart, Percutaneous Approach (ICD-10-PCS; CPT 93452; principal; 2025-04-08 10:45)
DX: I20.0 Unstable angina (principal); I10 Essential (primary) hypertension; I49.3 Ventricular premature depolarization; E78.5 Hyperlipidemia, unspecified; E11.9 Type 2 diabetes mellitus without complications; I48.91 Unspecified atrial fibrillation; F03.90 Unspecified dementia, unspecified severity, without behavioral disturbance, psychotic disturbance, mood disturbance, and anxiety; K21.9 Gastro-esophageal reflux disease without esophagitis; N40.0 Benign prostatic hyperplasia without lower urinary tract symptoms; Z85.46 Personal history of malignant neoplasm of prostate; Z82.49 Family history of ischemic heart disease and other diseases of the circulatory system; Z87.891 Personal history of nicotine dependence; Z98.890 Other specified postprocedural states; Z79.84 Long term (current) use of oral hypoglycemic drugs; Z79.899 Other long term (current) drug therapy
CPT/HCPCS: 71046; 80053; 80061; 83690; 84484; 85025; 85378; 86803; 87389; 93005; 93270; 93306; 93458; 96361; 96374; 96375; 96376; 99152; 99285; C1725; C1769; G0378; J1200; J1644; J2250; J2270; J3010; J7040; Q9967

== ENCOUNTER 2025-08-13 12:35 | Outpatient (CLI) | payer MEDICARE, OTHER, SELFPAY ==
[2025-08-13 15:27] LABS: Alanine Aminotransferase 18 U/L (12-78); Albumin Level 4.2 g/dl (3.5-5.0); Albumin/Globulin Ratio 1.4 (1.1-1.8); Alkaline Phosphatase 64 U/L (38-126); Anion Gap 11.3 mEq/L (5-15); Aspartate Amino Transferase 31 U/L (17-59); Bilirubin,Total 0.9 mg/dl (0.2-1.3); Blood Urea Nitrogen 11 mg/dl (9-20); Calcium 8.9 mg/dl (8.4-10.2); Carbon Dioxide 27 mmol/L (22.0-30.0); Chloride 94 mmol/L (98-107); Creatinine,Serum 0.80 mg/dl (0.66-1.25); Estimated Glomerular Filt Rate 94 ml/min (>60); GFR (African American) 113 ML/MIN (>60); Globulin 3.1 g/dL (1.3-3.2); Glucose 119 mg/dl (74-100); Potassium 4.3 mmoL/L (3.5-5.1); Sodium 128 mmol/L (136-145); Total Protein,Serum 7.3 g/dl (6.3-8.2)
[2025-08-13 15:52] LABS: Thyroid Stimulating Hormone 1.20 uIU/mL (0.465-4.68)
--- OUTSIDE RECORDS SUMMARY | 2025-08-15 13:47 | XMS_ITS | Data Portability ---
Author Organization [facility] Address [address] [facility] [address] [place] [address] Care Team Providers Care Veterinary Science Teacher Name Role Phone EDYREYNALDO HILL Primary Care Provider Assessment No assessment recorded. Plan of Treatment Reminders Order Date Submit Date Provider Last Modified By Organization Details Last Modified Time Details Appointments None record ed. Lab None record ed. Referral None record ed. Procedures None record ed. Surgeries None record ed. Imaging None record ed. Medication Orders None record ed. Patient TargetsNo targets recorded. Patient Instructions Encounter Date Encounter Id Patient Instructions Last Modified By Organization Details Last Modified Time 04/06/2022 [id number] 1. Nasal Endosco py performed ; clinical photos obtained. Full risks, complications, and benefits of non-operative intervention have been thoroughly discussed. Understanding was expressed, informed consent given, and we will proceed with the discussed treatment plan. There were no questions for me at the end of the office visit. 2. Recommend CRNF with stabilization and close reduction of his septal fracture. Full risks, complications, and benefits of operative versus non-operative intervention have been thoroughly discussed. Understanding was expressed, informed consent given, and we will proceed with the discussed operative treatment plan. He does understand that we may not be able to get in the exact position it was prior to injury but by aligning the bones back in the proper position he should breathe better and have his normal preinjury appearance. There were no questions for me at the end of the office visit. 3. F/u postoperatively johanna Not available 04/06/2022 14:22:53 04/16/2022 [id number] 1. External steri-strip removal performed. 2. Continue with postoperative instructions as directed -he is to avoid any trauma to the nose if possible. 3. F/u prn [email or web address] Not available 04/16/2022 12:24:32 Reason for Referral None Reported. Results Created Date Observation Date Name Description Value Unit Range Abnormal Flag Note LastModifiedBy Organization Detail LastModifiedTime 04/09/20 22 04/06/2022 sahara christensengr am No observ ation record ed. BARCODE Not Available 2021 11:03:48 Result Notes None recorded. 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 Procedures Surgical History Date Name Laterality Status Provider Name and Address Organization Details Recorded Time 04/08/20 22 NASAL FRACTURE, CLOSED REDUCTION (SURG) completed Fatimah Cadena [facility] 04/09/2022 09:01:49 04/06/20 22 Endoscopy Nasal; Diagnostic completed Saadia Love [facility] 04/06/2022 13:48:21 cholecystectomy completed Lynn Barrera [facility] 04/06/2022 13:17:17 prostatectomy completed [facility] Bruce [facility] 04/06/2022 13:17:24 catheter ablation of lesion of heart completed [facility] 04/06/2022 13:17:35 Imaging Results None recorded. Procedure Notes None recorded. Medical Equipment None Reported. Allergies No known drug allergies Medications Name Sig Start Date Stop Date Status Note LastModified by Organization Details LastModified Time hydralazi ne 10 mg tablet TAKE 1 TABLET BY MOUTH FOUR TIMES A DAY 04/06 completed Not Available Not Available Not Available metoprolo l succinate ER 50 mg tablet,ex tended release 24 hr TAKE 1 TABLET BY MOUTH EVERY DAY. 04/06 completed Not Available Not Available Not Available tolterodi ne ER 4 mg capsule,e xtended release 24 hr TAKE 1 CAPSULE BY MOUTH EVERY DAY. 04/06 completed Not Available Not Available Not Available hydrocodo ne 5 mg-acetam inophen 325 mg tablet 04/06 completed Not Available Not Available Not Available sotalol 80 mg tablet Two times a day 04/06 completed Frequenc y: bid;Medi cation Descript ion: sotalol; Dosage:1 ; Route:or al; refills: 0 Not Available Not Available Not Available metoprolo l succinate ER 100 mg tablet,ex tended release 24 hr TAKE 1 TABLET BY MOUTH ONCE DAILY active Not Available Not Available No t Available prednison e 5 mg tablet TAKE 4 TABS BY MOUTH DAILY X 3 DAYS, THEN 2 TABS DAILY X 3 DAYS, THEN 1 TAB DAILY X 3 DAYS 04/06 completed Not Available Not Available Not Available hydroxyzi ne HCl 50 mg tablet TAKE 1 & 1/2 TABLETS BY MOUTH TWICE A DAY. 04/06 completed Not Available Not Available Not Available losartan 100 mg-hydroc hlorothia zide 25 mg tablet TAKE 1 TABLET BY MOUTH ONCE DAILY. 04/06 completed Not Available Not Available Not Available colesevel am 625 mg tablet TAKE 3 TABLETS BY MOUTH TWICE DAILY DIRECTED . 04/06 completed Not Available Not Available Not Available hydralazi ne 100 mg tablet TAKE 1 TABLET BY MOUTH TWICE A DAY 04/06 completed Not Available Not Available Not Available acyclovir 5 % topical ointment APPLY 1 APPLICAT ION TOPICALL Y EVERY 3 HOURS 04/06 completed Not Available Not Available Not Available lansopraz ole 30 mg capsule,d elayed release TAKE 1 CAPSULE BY MOUTH 2 TIMES DAILY active Not Available Not Available No t Available nystatin- triamcino lone 100,000 unit/g-0. 1 % topical cream APPLY TOPICALL Y TO AFFECTED AREA 2 TIMES A DAY 7 DAYS 04/06 completed Not Available Not Available Not Available hydralazi ne 50 mg tablet TAKE 1.5 TABLETS BY MOUTH TWICE A DAY 04/06 completed Not Available Not Available Not Available digoxin 125 mcg (0.125 mg) tablet 04/06 completed Duration : 10 days;Med ication Descript ion: digoxin; Route:or al; refills: 0; Quantity :30 tablet Not Available Not Available Not Available levofloxa kameron 500 mg tablet Daily 04/06 completed Frequenc y: daily;Me dication Descript ion: levoflox acin; Dosage:1 ; Route:or al; refills: 0 Not Available Not Available Not Available methylpre dnisolone 4 mg tablets in a dose pack TAKE DIRECTED ON PACKAGE 04/06 completed Not Available Not Available Not Available celecoxib 100 mg capsule TAKE ONE CAPSULE BY MOUTH TWICE DAILY active Not Available Not Available No t Available ondansetr on 4 mg disintegr ating tablet PLACE 1 TABLET UNDER THE TONGUE EVERY 6 HOURS NEEDED FOR NAUSEA. active Not Available Not Available No t Available imipramin e 25 mg tablet active Not Available Not Available Not Available metoclopr amide 10 mg tablet TAKE 1 TABLET BY MOUTH EVERY 6 HOURS NEEDED 30 04/06 completed Not Available Not Available Not Available losartan 100 mg-hydroc hlorothia zide 12.5 mg tablet 04/06 completed Medicati on Descript ion: hydrochl orothiaz sarah-losa rtan; Route:or al; refills: 0 Not Available Not Available Not Available aspirin active Medicati on Descript ion: aspirin; refills: 0 Not Available Not Available Not Available Wellcovor in Calcium active Not Available Not Available Not Available Toviaz 4 mg tablet,ex tended release TAKE 1 TABLET BY MOUTH EVERY DAY 04/06 completed Not Available Not Available Not Available Suprep Bowel Prep Kit 17.5 gram-3.13 gram-1.6 gram oral solution TAKE DIRECTED 04/06 completed Not Available Not Available Not Available Xarelto 10 mg tablet 04/06 completed Medicati on Descript ion: rivaroxa ban; Route:or al; refills: 0 Not Available Not Available Not Available Vitals Date Recorded Body weight Body temperature Body mass index (BMI) Body height Heart rate Systolic And Diastolic Provider Name and Address Organization Details Last Updated DateTime 2 751662. 74 g 97.9 [degF] 31.6 kg/m2 182.88 cm 61 /min 136/75 mm[Hg] Lynn Barrera [facility] 2 13:19:32 Date Recorded Body height Body mass index (BMI) Body weight Oxygen saturation Oxygen saturation in Arterial blood by Pulse oximetry Heart rate Systolic And Diastolic Provider Name and Address Organization Details Last Updated DateTime 2 182.88 cm 31.2 kg/m2 567512. 25 g 96 % 96 % 62 /min 161/79 mm[Hg] Malinda Gonzales [facility] 2 10:33:26 Social History Question Answer Notes LastModified by Organizat ion Details LastModified Time Tobacco Smoking Status Former Smoker Lynn Barrera [facility] 04/06/2022 13:14:09 How Many Years Have You Smoked Tobacco? 30 Information not available 04/06/2022 Sex: Unknown Functional Status Question Answer Note LastModified by Organizat ion Details LastModified Time What is your level of alcohol consumption? Occasional Information not available 04/06/2022 Mental Status None recorded. Family History Relationship Description Onset Age of this Age Resolved Age Notes LastModified by Organization Details LastModified Time Mother Family history of malignant neoplasm lung Not available 2021 13:14:21 Father Hearing loss Not availab le 04/06/2022 13:14:34 Father Heart disease Not available 2021 13:14:42 Father Hypertensive disorder Not available 2021 13:14:49 Father Diabetes mellitus Not available 2021 13:15:01 Brother Diabetes mellitus Not available 2021 13:15:01 Medical History Condition Response Anesthesia Complications N Diabetes N Bleeding Disorder N Arthritis Y Acid Reflux (GERD) Y Cancer Y Hypertension Y Past Encounters Encounter ID Performer Location Encounter Start Date Encounter Closed Date Diagnosis/Indication Diagnosis SNOMED-CT Code Diagnosis ICD10 Code Diagnosis IMO Codes Diagnosis Note [id number] MD ALURY IVERSON III RD [address] [place] [address] 04/06/2022 12:49:43 04/06/2022 15:12:22 Fractured nasal bones 249234335 S02.2XXA Deviated nasal septum 12 7130075 J34.2 History of fall 08802882 9 Z91.81 Finding of nasal deformity 963571932 M95.0 Ecchymosis 305565238 R58 Injury of nose 49422107 S09.92XD [id number] MD LUARY IVERSON III [facility] [address] [place] [address] 04/16/2022 10:14:43 04/16/2022 13:43:07 Closed, displaced fracture of nasal bone 573015494 S02.2XXD - S/p Closed reduction of nasal fracture and closed reduction of septal fracture with stabilizat ion (04/08/22) Deviated nasal septum 12 4261822 J34.2 - S/p Closed reduction of nasal fracture and closed reduction of septal fracture with stabilizat ion (04/08/22) Health Concerns Section Related Observation LastModified by Organization Detai ls LastModified Time None Recorded Concern Status LastModified by Organization Details LastModified Time None Recorded Advance Directives Directive None Recorded Payers Insurance Date Sequence Insurance Name Policy Number Policy Demarco Covered Member ID Demarco Member ID Guarantor Name 04/13/2022 2 [place] Yusef Simmons [id number] Yusef Simmons 04/06/2022 3 [employer] (MEDICARE SUPPLEMENT) Yusef Simmons [id number] Yusef Simmons 04/26/2022 1 [place] [id number] 1 Yusef Simmons [id number] Yusef Simmons Notes Date Note Type Note Provider Name and Address Organization Details Recorded Time 04/06/2022 text/html Yusef comes in today for consultation at the request of Dr. Reynaldo Beck for an evaluation of a nasal fracture. He was evaluated at [facility] yesterday by Dr. Carrizales. He had a fall 4 days ago while walking on concrete which resulted in a comminuted fracture of the nasal bones and septum. He did have bleeding from the nose initially which has stopped. He denies prior nasal trauma and/or surgery. Yusef reports the external nasal swelling is improving each day, and he does notice changes in the appearance of his external nose. JOSIE CARRIZALES III, MD [address] [place] [address], [phone], [facility] 04/06/2022 14:24:34 04/16/2022 text/html Yusef returns today in follow up of s/p Closed reduction of nasal fracture and closed reduction of septal fracture with stabilization from 04/08/22. He has experienced normal postoperative discomfort which is improving each day. He is set for external steri-strip removal today. Yusef has observed standard postoperative instructions and doing well postoperatively. JOSIE CARRIZALES III, MD [address], [place], [address], [facility] 04/16/2022 12:25:47
--- OUTSIDE RECORDS SUMMARY | 2025-08-15 13:47 | XMS_ITS | Clinical Summary ---
Author Organization [facility] Address [address] [place] [address] Care Team Providers Care Recyclable Materials Distributor Name Role Phone Justice Robles MD Primary Care Provider + [phone] Allergies No known active allergies Medications acetaminophen (Tylenol) 500 MG tablet Take 2 tablets (1,000 mg) by mouth every 8 (eight) hours if needed. 09/23/20 23 Active traMADol (Ultram) 50 MG tablet Take 1-2 tablets (50-100 mg) by mouth every 8 (eight) hours if needed. Active nystatin (Mycostatin) 787709 UNIT/GM powder Apply topically 3 times a day. 10/14/19 24 Active metFORMIN (Glucophage) 500 MG tablet Take 1 tablet (500 mg) by mouth 1 (one) time each day. Active losartan-hydro CHLOROthiazide (Hyzaar) 100-25 MG tablet Take 1 tablet [...] Active Memantine HCl ER 7 MG capsule sustained-rele ase 24 hr Take 1 capsule by mouth 1 (one) time each day. 06/18/20 24 Active metoprolol succinate XL (Toprol-XL) 100 MG 24 hr tablet Take 1 tablet (100 mg) by mouth 1 (one) time each day. Active tadalafil (Adcirca) 20 MG tablet Take 1 tablet PO at least 1 hour prior to sexual activity as needed. Max dose is 20 mg in in 24 hours. 6 tablet 1 08/27/20 24 Active Trospium Chloride ER 60 MG capsule sustained-rele ase 24 hr TAKE 1 CAPSULE BY MOUTH DAILY 90 capsule 07/17/20 25 Active Trospium Chloride ER 60 MG capsule sustained-rele ase 24 hr Take 1 capsule (60 mg) by mouth 1 (one) time each day. 90 capsule 2 11/07/19 025 Discontinued Active Problems No known active problems Encounters Date Type Department Care Team Description 07/16/2025 [facility]ill [facility] [address] [place] [address] Lynn Neal, JOB DEVELOPMENT SPECIALIST, DNP from Last 3 Months Family History Medical History Relation Name Comments [...] Last Done Comments [facility]-Hepatitis C Screening 1950 [facility]-Medicare Annual Wellness (AWV) 1950 [facility]-/Child/Adol SDOH Screenings 1950 [facility]- SDOH Screenings 1966 [facility]-Adult SDOH Screenings 1966 [facility]-Zoster Vaccines (1 of 2) 1998 [facility]-DTaP,Tdap,and Td Vaccines (2 - Td or Tdap) 07/08/2021 07/08/2011, 12/13/1996 [facility]-Pneumococcal Vaccine: 50+ Years (2 of 2 - PCV) 07/29/2022 07/29/2021 [facility]-RSV Vaccine: 60+ Years or (1 - 1-dose 75+ series) 2023 [id number] Vaccine ( season) 2025 06/24/2021, 11/13/2020, 10/16/2020 [facility]-Influenza Vaccine (#1) 06/10/202508/23, 10/06/2022, 07/29/2021, Additional history exists [facility]-Depression Screening [...] age to complete this topic Insurance MEDICARE [facility] Care Teams Recyclable Materials Distributor Relationship Specialty Start Date End Date Justice Robles MD [address] [facility] [address] [place] [address] PCP - General 02/20/21
--- OUTSIDE RECORDS SUMMARY | 2025-08-15 13:47 | XMS_ITS | Encounter Summary ---
Author Organization Healthcare Address [address] [place] [address] Care Team Providers Care Gaggerman Name Role Phone Justice Robles MD Primary Care Provider + [phone] Reason for Visit * Reason Comments Med Refill Encounter Details Date Type Department Care Team (Late st Contact Info) Description 07/16/[address] [facility] [address] [place] [address] Lynn Neal P, GUN STOCKER, DNP [address] [place] [address] Social History Tobacco Use Types Packs/Day Years Used Date Smoking Tobacco: Former Cigarettes Smokeless Tobacco: Never Alcohol Use Standard Drinks/Week Comments Never 0 [...] on file documented as of this encounter Plan of Treatment Not on file documented as of this encounter Visit Diagnoses Not on filedocumented in this encounter Additional Health Concerns Assessment Noted Time PHQ-9 Depression Total Score: 0 08/27/20 10:08 AM EST A fall risk assessment has been complete d for the patient 08/27/2024 10:08 AM EST A Body Mass Index follow-up plan has been documented for the patient 08/27/2024 10:44 AM EST documented as of this encounter Care Teams Gaggerman Relationship Specialty Start Date End Date Justice Robles MD [address] [place] [address] PCP - General 02/20/21 documented as of this encounter
--- OUTSIDE RECORDS SUMMARY | 2025-08-15 13:48 | XMS_ITS | Clinical Summary ---
Author Organization [facility] Address [address] [place] [address] Care Team Providers Care Second Language Tutor Name Role Phone Justice Robles MD Primary Care Provider [phone] Allergies No known active allergies Medications lansoprazole (PREVACID) 30 MG capsule Take 30 mg by mouth 2 (Two) Times a Day. Active losartan (COZAAR) 25 MG tablet Take by mouth Daily. Active aspirin 325 MG tablet Take 325 mg by mouth Daily. Active colesevelam (WELCHOL) 3.75 g pack pack Take by mouth Daily. States he takes 3 tablets BID of this medication Active HYDROcodone-lon taminophen (NORCO) 5-325 MG per tablet Take 1 tablet by mouth Every 6 (Six) Hours As Needed for Moderate Pain . 6 tablet 9 Active docusate sodium 100 MG capsule Take 100 mg by mouth 2 (Two) Times a Day. 60 each 1 9 Active Active Problems Problem Noted Date Diagnosed Date Hypertension 11/25/2018 Hyperlipidemia 11/25/2018 Former smoker 11/25/2018 Hx of prostatic malignancy 11/25/2018 S/P hemorrhoidectomy 11/25/2018 Perirectal abscess 11/24/2018 Resolved Problems Problem Noted Date Diagnosed Date Resolved Date Sepsis due to Bacteroides species 12/05/2018 12/05/2018 Hypokalemia 11/25/2018 11/26/2018 Social History Tobacco Use Types Packs/Day Years Used Date Smoking Tobacco: Former Smokeless Tobacco: Never Alcohol Use Standard Drinks/Week Comments Yes 0 (1 standard drink = 0.6 oz pur e alcohol) socially Abuse Screen Answer Date Recorded Unsafe at Home or Work/School Not on file Feels Threatened by Someone? Not on file 09/2023 Does Anyone Keep You from Co ntacting Others or Doint Things Outside the Home? Not on file 07/21/2023 Physical Sign of Abuse Present Not on file 1 Housing Stability Answer Date Recorded Current Living Arrangements Not on file 07/10 Potentially Unsafe Housing Conditions Not on mary e 07/21/2023 Family and Community Support Answer Joe e Recorded Help with Day-to-Day Activities Not on file 07/21/2023 Lonely or Isolated Not on file 07/21/2023 Employment Answer Date Recorded Do you want help finding or keeping work or a delores b? Not on file 07/21/2023 Disabilities Answer Date Recorded Concentrating, Remembering, or Making Decisions Difficulty Not on file 07/21/2023 Doing Errands Independently Difficulty Not on fi le 07/21/2023 Education Answer Date Recorded Help with school or training? Not on file Preferred Language Not on file 07/21/2023 Sex and Gender Information Value Date Recorded Sex Assigned at Not on file Legal Sex Male 7:43 PM EST Gender Identity Not on file Sexual Orientation Not on file Last Filed Vital Signs Vital Sign Reading Time Taken Comments Blood Pressure 156/78 11/26/2018 11:00 AM EST Pulse 93 11/26/2018 11:00 AM EST Temperature 36.6 C (97.8 F) 11/26/2018 11:00 AM EST Respiratory Rate 18 11/26/2018 11:00 AM EST Oxygen Saturation 92% 11/26/2018 11:00 AM EST Inhaled Oxygen Concentration - - Weight 100 kg (220 lb 6.4 oz) 11/25/2018 1:30 AM EST Height 182.9 cm (6') 11/25/2018 1:30 AM EST Body Mass Index 29.89 11/25/2018 1:30 AM EST Plan of Treatment Health Maintenance Due Date Last Done Comments LIPID PANEL 1950 ZOSTER VACCINE (1 of 2) 1998 ANNUAL PHYSICAL 11/27/2018 HEPATITIS C SCREENING 11/27/2018 TDAP/TD VACCINES (3 - Td or Tdap) 07/08/2021 011, 12/13/1996 Pneumococcal Vaccine 50+ (2 of 2 - PCV) 07/29/2022 07/29/2021 RSV Vaccine - Adults (1 - 1- dose 75+ series) 2023 INFLUENZA VACCINE 05/10/2025 07/29/2021, , 07/03/2018, Additional history exists COVID-19 Vaccine (2024-2 6 season) 2025 06/24/2021, 11/13/2020, 10/16/2020 Insurance [employer] MEDICARE A & B Advance Directives * CPR (Attempt to Resuscitate) (Latest Code Status on File) Date Activated Date Inactivated Comments 11/25/2018 2:09 AM 11/26/2018 2:13 PM Question Answer Comments Code Status (Patient has no pulse and is not breathing): CPR (Attempt to Resuscitate) Medical Interventions (Patie nt has pulse or is breathing): Full Care Teams Second Language Tutor Relationship Specialty Start Date End Date Justice Robles MD [address] [facility] [address] [place] [address] PCP - General Family Medicine 11/24/18
== END 2025-08-13 23:59 | disposition home or self-care (01) ==
LOC: LAB.DROPOF 08-15 13:41
PROVIDERS: PCP Family Medicine; Visit Provider Family Medicine
DX: I10 Essential (primary) hypertension (principal); R41.3 Other amnesia
CPT/HCPCS: 80053; 84443